=== PATIENT | female | born 1940 | race Caucasian/White ===

== ENCOUNTER 2016-05-14 09:41 | Emergency (ER) | payer OTHER ==
[~2016-05-14] VITALS: Ht 162.6 cm; Wt 54.5 kg
[~2016-05-14 09:41] MED LIST: POLY90PO MC; [UNRECOGNIZED DRUG - CODE] IM
[2016-05-14] MEDS ORDERED: ONDANSETRON 4 MG INJ IV STA (09:43)
[2016-05-14] MEDS ORDERED: morphine 4 MG/ML VIAL IV STA (09:43)
[2016-05-14] MEDS ORDERED: SOD CHLORIDE 0.9% 1,000 ML IV STA (09:43)
[2016-05-14 10:01] VITALS: Ht 162.6 cm; Wt 54.5 kg
[2016-05-14] MEDS ORDERED: AMLO5TAB4 PO (10:20)
[2016-05-14] MEDS ORDERED: CARV3.1260 PO (10:25)
[2016-05-14 10:32] LABS: ADD SCAN DIFF NO
--- NOTE | 2016-05-14 10:33 | RADRPT ---
PROCEDURE: CT Abdomen and Pelvis without contrast. CLINICAL INDICATION: Abdominal pain, history of cervical cancer TECHNIQUE: CT of the abdomen and pelvis was performed on a multi-detector scanner without IV contr ast. Coronal and sagittal images were reformatted from the axial data set. One or more of the foll owing dose reduction techniques were used: automated exposure control, adjustment of the mA and/or kV according to patient size, use of iterative reconstruction technique. CTDI = 15.11 mGy. DLP = 70 8.01 mGy-cm. COMPARISON: PET CT, 02/15/2012 FINDINGS: CT abdomen: Bibasilar atelectasis / scarring is noted. The heart size is normal, without pericardial effusion. Liver, gallbladder, biliary tree, pancreas, spleen and adrenal glands are unremarkable. Bilateral ureteral stents are in place. There is mild to moderate right hydroureteronephrosis. Nonobstructiv e right renal calculus is noted. There is chronic moderate to severe left renal atrophy. No signif icant hydronephrosis is seen on the left. The stomach is partially collapsed, but appears grossly u nremarkable. The aorta is of normal caliber. Aortic vascular calcifications are present. There is no retroperit young lymphadenopathy. The yennifer hepatis region is clear. CT pelvis: No bowel obstruction, free intraperitoneal air or abscess is identified. The patient is status post appendectomy and partial small bowel resection, with unremarkable appearance of the surgical staple lines. No diverticulosis, diverticulitis or colitis is identified. The patient is status post hys terectomy. Urinary bladder is grossly unremarkable. No pelvic mass, free fluid or lymphadenopathy is identified. The surrounding osseous structures are remarkable for diffuse degenerative spondylosis of the spine. No osteolytic or osteoblastic lesion is detected. IMPRESSION: 1. History of cervical cancer, status post hysterectomy. No gross evidence of recurrent neoplasm o r metastatic disease is seen in the abdomen and pelvis. 2. Bilateral ureteral stents are in place. 3. There is mild to moderate right hydroureteronephrosis. Nonobstructive right renal calculus is i dentified. 4. There is chronic moderate to severe left renal atrophy. No significant hydronephrosis is seen o n the left. 5. Aortoiliac atherosclerotic calcifications are present. 6. The patient is also status post appendectomy and partial small bowel resection. No bowel obstru ction is identified. RPTAT: EE .Efrain Khoury MD, MD Date Time Electronically viewed and signed by .Efrain Khoury MD, MD on 05/14/2016 10:33 .R/
[2016-05-14 10:46] LABS: ABNORMAL IP MESSAGE 1; BASOPHILS % 0.6 % (0.0-2.0); EOSINOPHILS # 0.1 10^3/ul (0.0-0.5); EOSINOPHILS % 1.7 % (0.0-7.0); HEMATOCRIT 37.2 % (37.0-47.0); HEMOGLOBIN 12.8 g/dl (12.0-16.0); LYMPHOCYTES # 0.5 10^3/ul (0.8-2.9); LYMPHOCYTES % 8.4 % (15.0-51.0); MEAN CORPUSCULAR HEMOGLOBIN 30.5 pg (29.0-33.0); MEAN CORPUSCULAR HGB CONC 34.4 g/dl (32.0-37.0); MEAN CORPUSCULAR VOLUME 88.6 fl (82.0-101.0); MEAN PLATELET VOLUME 9.8 fl (7.4-10.4); MONOCYTE # 0.4 10^3/ul (0.3-0.9); NEUTROPHIL # 5.2 10^3/ul (1.6-7.5); PLATELET COUNT 243 10^3/UL (140-415); RED CELL DISTRIBUTION WIDTH 13.6 % (11.5-14.5); WHITE BLOOD COUNT 6.3 10^3/ul (4.8-10.8)
[2016-05-14 10:47] LABS: ALBUMIN 4.5 g/dl (3.3-4.9)
[2016-05-14 10:48] LABS: POTASSIUM 3.3 mmol/L (3.5-5.1)
[2016-05-14 10:50] LABS: ALBUMIN/GLOBULIN RATIO 1.6; BILIRUBIN,INDIRECT 0.7 mg/dl (0-1.1); BILIRUBIN,TOTAL 0.7 mg/dl (0.2-1.3); CREATININE 0.78 mg/dl (0.44-1.00); TOTAL PROTEIN 7.3 g/dl (6.1-8.1)
[2016-05-14 10:51] LABS: CALCIUM 9.6 mg/dl (8.4-10.2)
[2016-05-14 11:41] LABS: URINE BLOOD (Dip) POC 3+ (NEGATIVE)
[2016-05-14] MEDS ORDERED: ONDA4TAB14 PO (11:50)
[2016-05-14 12:00] VITALS: BP 140/73; PULSE 69; RESP 16; TEMP 97.5
[2016-05-14 12:19] LABS: ADD UMIC YES; URINE BILIRUBIN (Dip) NEGATIVE (NEGATIVE); URINE BLOOD (Dip) 3+ (NEGATIVE); URINE COLOR LT. YELLOW (YELLOW); URINE GLUCOSE (Dip) NEGATIVE (NEGATIVE); URINE KETONES (Dip) TRACE (NEGATIVE); URINE LEUKOCYTE ESTERASE (Dip) NEGATIVE (NEGATIVE); URINE NITRITE (Dip) NEGATIVE (NEGATIVE); URINE TOTAL PROTEIN (Dip) NEGATIVE (NEGATIVE); URINE UROBILINOGEN (Dip) 0.2 E.U./dL (0.1-1.0)
[2016-05-14 12:49] LABS: URINE RBCS >200 /HPF (0)
[2016-05-14 12:50] LABS: BACTERIA,URINE MODERATE
--- NOTE | 2016-05-14 13:37 | ERD ---
ER Documentation Chief Complaint Date/Time DATE: 05/14/16 TIME: 13:30 Chief Complaint N/V with right groin pain HPI She is a 75-year-old female with cervical cancer previously and hypertension who presents with abdominal pain. She has right lower quadrant abdominal pain and vomiting. She was brought in by ambulance. Her symptoms started this morning. She does have kidney stones bilaterally and has them changed every 6 months. She has an appointment on Wednesday to change her stents. She has a history of cancer with radiation which is in remission. She has no fevers. She has had no treatment as of yet. She called her primary doctor but there was no answer. ROS All systems reviewed and are negative except as per history of present illness. Medications Home Meds Active Scripts Ondansetron (Ondansetron Odt) 4 Mg Tab.rapdis, 4 MG PO Q6H Y for NAUSEA AND/OR VOMITING, #30 TAB Prov:OJSR CABELLO MD 05/14/16 Reported Medications Carvedilol* (Carvedilol*) 3.125 Mg Tablet, 3.125 MG PO BID, #60 TAB 05/14/16 Amlodipine Besylate* (Norvasc*) 5 Mg Tablet, 5 MG PO BID, TAB 05/14/16 Discontinued Reported Medications Dicyclomine Hcl (Dicyclomine Hcl) 10 Mg/Ml Vial, 10 MG IM AC MEALS AND BEDTIME 02/17/12 Polyethylene Glycol (Polyethylene Glycol) 2,270 Gm Powder, [id number] GM MC DAILY 02/17/12 Allergies Allergies: Coded Allergies: Latex (Verified Allergy, Intermediate, RASH, 02/17/12) PMhx/Soc History of Surgery: Yes (HYSTERECTOMY) Anesthesia Reaction: No Hx Neurological Disorder: No Hx Respiratory Disorders: No Hx Cardiac Disorders: No Hx Psychiatric Problems: No Hx Miscellaneous Medical Probl: Yes (cervical ca) Hx Alcohol Use: No Hx Substance Use: No Hx Tobacco Use: Yes (10 YRS. AGO) Smoking Status: Former smoker FmHx Family History: No diabetes Physical Exam Vitals Vital Signs Date Time Temp Pulse Resp B/P Pulse Ox O2 Delivery O2 Flow Rate FiO2 05/14/16 12:00 97.5 69 16 140/73 97 Room Air 05/14/16 10:01 97.5 77 16 181/87 96 Physical Exam Const: Mild distress secondary to pain Head: Atraumatic Eyes: Normal Conjunctiva ENT: Normal External Ears, Nose and Mouth. Neck: Full range of motion..~ No meningismus. Resp: Clear to auscultation bilaterally Cardio: Regular rate and rhythm, no murmurs Abd: Soft, right lower quadrant pain to palpation without rebound or guarding Skin: No petechiae or rashes Back: No midline or flank tenderness Ext: No cyanosis, or edema Neur: Awake and alert Psych: Normal Mood and Affect Result Diagram: 05/14/16 1020 05/14/16 1020 Results 24 hrs Laboratory Tests Test 05/14/16 10:20 05/14/16 11:40 05/14/16 11:43 Alanine Aminotransferase (ALT/SGPT) 37IU/L Albumin 4.5g/dl Albumin/Globulin Ratio 1.60 Alkaline Phosphatase 82IU/L Anion Gap 19 Aspartate Amino Transf (AST/SGOT) 30IU/L Basophils # 0.010^3/ul Basophils % 0.6% Blood Urea Nitrogen 17mg/dl Calcium Level 9.6mg/dl Carbon Dioxide Level 25mmol/L Chloride Level 102mmol/L Creatinine 0.78mg/dl Direct Bilirubin 0.00mg/dl Eosinophils # 0.110^3/ul Eosinophils % 1.7% Globulin 2.80g/dl Glucose Level 145mg/dl Hematocrit 37.2% Hemoglobin 12.8g/dl Indirect Bilirubin 0.7mg/dl Lipase 242U/L Lymphocytes # 0.510^3/ul Lymphocytes % 8.4% Mean Corpuscular Hemoglobin 30.5pg Mean Corpuscular Hemoglobin Concent 34.4g/dl Mean Corpuscular Volume 88.6fl Mean Platelet Volume 9.8fl Monocytes # 0.410^3/ul Monocytes % 7.0% Neutrophils # 5.210^3/ul Neutrophils % 82.0% Nucleated Red Blood Cells # 0.010^3/ul Nucleated Red Blood Cells % 0.0/100WBC Platelet Count 78145^3/UL Potassium Level 3.3mmol/L Red Blood Count 4.2010^6/ul Red Cell Distribution Width 13.6% Sodium Level 143mmol/L Total Bilirubin 0.7mg/dl Total Protein 7.3g/dl White Blood Count 6.310^3/ul Urine Bacteria MODERATE Urine Bilirubin NEGATIVE Urine Calcium Oxalate Crystals OCCASIONAL Urine Clarity SLIGHTLY CLOUDY Urine Coarse Granular Casts OCCASIONAL Urine Color LT. YELLOW Urine Epithelial Cells RARE Urine Glucose NEGATIVE% Urine Hemoglobin 3+ Urine Ketones TRACE Urine Leukocyte Esterase NEGATIVE Urine Microscopic RBC >200/HPF Urine Microscopic WBC 5-10/HPF Urine Nitrite NEGATIVE Urine Specific Max 1.010 Urine Total Protein NEGATIVE Urine Urobilinogen 0.2 E.U./dL Urine pH 7.0 Bedside Urine Blood 3+ Bedside Urine Glucose (UA) Negative Bedside Urine Ketones (LAB) Trace Bedside Urine Leukocyte Esterase (L Negative Bedside Urine Nitrite (LAB) Negative Bedside Urine Protein (LAB) Trace Bedside Urine pH (LAB) 8.5 Current Medications Medications (Trade) Dose Ordered Sig/Everardo Route PRN Reason Start Time Stop Time Status Last Admin Dose Admin Sodium Chloride (NS) 1,000 ml @ 1,000 mls/hr Q1H STAT IV 05/14/16 09:43 05/14/16 10:42 DC 05/14/16 10:38 Morphine Sulfate (morphine) 4 mg ONCE STAT IV 05/14/16 09:43 05/14/16 09:44 DC 05/14/16 10:37 Ondansetron HCl (Zofran Inj) 4 mg ONCE STAT IV 05/14/16 09:43 05/14/16 09:44 DC 05/14/16 10:37 Procedures/MDM CT scan shows mild hydronephrosis per radiology but no obvious kidney stone or surgical process. Patient is a 75-year-old female presents with right-sided hydronephrosis. There is no sign of infection in the urine. Laboratory studies are basically normal other than mild hypokalemia. The patient should follow-up with her urologist for changing of her stents. I did reach out to Dr. Salomon who is the urologist on-call but he is in the operating room and was unable to return the call. There is a consideration for possible cervical cancer recurrence that is causing obstruction of the ureter but she does have a urologist that she could follow-up with and I do not think she is to be admitted at this time. She can return for any worsening symptoms. Departure Diagnosis: Primary Impression: Abdominal pain Abdominal location: right lower quadrant Qualified Code: R10.31 - Right lower quadrant abdominal pain Additional Impressions: Hydronephrosis Hydronephrosis type: unspecified Qualified Code: N13.30 - Hydronephrosis, unspecified hydronephrosis type Nausea and vomiting Vomiting type: unspecified Vomiting Intractability: non-intractable Qualified Code: R11.2 - Non-intractable vomiting with nausea, unspecified vomiting type Condition: Fair Patient Instructions: Abdominal Pain, Hydronephrosis Adult Referrals: Dr. Us your Urologist Additional Instructions: SPECIALIST: YOU HAVE A MEDICAL CONDITION WHICH REQUIRES YOU TO SEE A SPECIALIST WITHIN THE NEXT 1-2 DAYS. PLEASE FOLLOW UP WITH YOUR PRIMARY PHYSICIAN FOR REFFERAL.IF YOU DO NOT HAVE A PRIMARY CARE PHYSICIAN AND/OR YOU CAN NOT AFFORD TO SEE A PHYSICIAN THE FOLLOWING RESOURCES HAVE BEEN SUPPLIED TO YOU. IT IS YOUR RESPONSIBILITY TO BE SEEN BY THE SPECIALIST JOSR CABELLO MD May 14, 2016 13:36
== END 2016-05-14 12:00 | disposition home or self-care (01) ==
LOC: E/R 09:41
DX: R10.31 Right lower quadrant pain (principal); R11.2 Nausea with vomiting, unspecified; N13.30 Unspecified hydronephrosis; I10 Essential (primary) hypertension; R40.2142 Coma scale, eyes open, spontaneous, at arrival to emergency department; R40.2252 Coma scale, best verbal response, oriented, at arrival to emergency department; R40.2362 Coma scale, best motor response, obeys commands, at arrival to emergency department; Z87.891 Personal history of nicotine dependence; Z85.41 Personal history of malignant neoplasm of cervix uteri
CPT/HCPCS: 36415; 74176; 80053; 81001; 83690; 85025; 96374; 96375; 99285; J2270; J2405; J7030; 81003

== ENCOUNTER 2017-02-06 15:08 | Inpatient (IN) | payer OTHER ==
[~2017-02-06] VITALS: Ht 162.6 cm; Wt 50.5 kg
[~2017-02-06 15:08] MED LIST changes: +AMLO5TAB4 PO; +CARV3.1260 PO; +ONDA4TAB14 PO; -POLY90PO MC; -[UNRECOGNIZED DRUG - CODE] IM
[2017-02-06 16:08] LABS: BASOPHIL # 0.1 10^3/ul (0.0-0.1); BASOPHILS % 0.7 % (0.0-2.0); EOSINOPHILS # 0.1 10^3/ul (0.0-0.5); EOSINOPHILS % 1.7 % (0.0-7.0); HEMATOCRIT 43.9 % (37.0-47.0); HEMOGLOBIN 14.7 g/dl (12.0-16.0); LYMPHOCYTES % 14.6 % (15.0-51.0); MEAN CORPUSCULAR HEMOGLOBIN 30.1 pg (29.0-33.0); MEAN CORPUSCULAR HGB CONC 33.5 g/dl (32.0-37.0); MEAN CORPUSCULAR VOLUME 89.8 fl (82.0-101.0); MEAN PLATELET VOLUME 9.3 fl (7.4-10.4); MONOCYTE # 0.5 10^3/ul (0.3-0.9); MONOCYTES % 7.4 % (0.0-11.0); NEUTROPHIL # 5.2 10^3/ul (1.6-7.5); NEUTROPHILS % 75.3 % (39.0-77.0); PLATELET COUNT 330 10^3/UL (140-415); RED BLOOD COUNT 4.89 10^6/ul (4.20-5.40); RED CELL DISTRIBUTION WIDTH 13.5 % (11.5-14.5); WHITE BLOOD COUNT 6.9 10^3/ul (4.8-10.8)
[2017-02-06 16:22] LABS: ALBUMIN 4.3 g/dl (3.3-4.9); ALBUMIN/GLOBULIN RATIO 1.3; BILIRUBIN,INDIRECT 0.5 mg/dl (0-1.1); BILIRUBIN,TOTAL 0.5 mg/dl (0.2-1.3); CALCIUM 10.2 mg/dl (8.4-10.2); CREATININE 0.76 mg/dl (0.44-1.00); TOTAL PROTEIN 7.6 g/dl (6.1-8.1)
[2017-02-06 18:39] VITALS: TEMP 98.1
--- NOTE | 2017-02-06 18:56 | ERD ---
ER Documentation Chief Complaint Chief Complaint CHRONIC BACK PAIN RADIATES TO LEGS IMPAIRING ADL'S HPI 76-year-old female comes to the emergency department by ambulance complaining of generalized lower extremity weakness. Patient was just recently hospitalized at [facility] for evaluation of significant back and neck pain and lower extremity weakness. Patient had MRI studies of her cervical and thoracic spine as well as her brain which demonstrated degenerative disease. She was discharged home and since being discharged, she states her legs are so weak that she cannot stand up and has been falling. The daughter tells me that she has been unable to take care of herself. Patient reports no other focal weakness, bowel or bladder incontinence. She reports no fevers or chills. She continues to have generalized weakness and the ambulance brought her to the emergency department. I have reviewed the stone carriage operator pre-hospital care. Pre-hospital vital signs were reviewed. Pre-hospital diagnostic tests were reviewed. On arrival, patient is complaining of the generalized weakness. The daughter tells me that she has been unable to care for herself. Patient has no other acute medical complaints. ROS All systems reviewed and are negative except as per history of present illness. Medications Home Meds Active Scripts Ondansetron (Ondansetron Odt) 4 Mg Tab.rapdis, 4 MG PO Q6H Y for NAUSEA AND/OR VOMITING, #30 TAB Prov:JOSR CABELLO MD 05/14/16 Reported Medications Carvedilol* (Carvedilol*) 3.125 Mg Tablet, 3.125 MG PO BID, #60 TAB 05/14/16 Amlodipine Besylate* (Norvasc*) 5 Mg Tablet, 5 MG PO BID, TAB 05/14/16 Allergies Allergies: Coded Allergies: Latex (Verified Allergy, Intermediate, RASH, 02/17/12) PMhx/Soc History of Surgery: Yes (HYSTERECTOMY) Anesthesia Reaction: No Hx Neurological Disorder: No Hx Respiratory Disorders: No Hx Cardiac Disorders: No Hx Psychiatric Problems: No Hx Miscellaneous Medical Probl: Yes (cervical ca) Hx Alcohol Use: No Hx Substance Use: No Hx Tobacco Use: Yes (10 YRS. AGO) Smoking Status: Former smoker FmHx Noncontributory for chief complaint Physical Exam Vitals Vital Signs Date Time Temp Pulse Resp B/P Pulse Ox O2 Delivery O2 Flow Rate FiO2 02/06/17 18:39 98.1 73 20 167/87 98 Room Air 02/06/17 15:15 98.7 76 18 178/103 98 Physical Exam GENERAL: Patient is frail, elderly-appearing HEENT: Pupils equal, round, and reactive to light. EOMI. There is no scleral icterus. NECK: C-spine is soft and supple, there is no meningismus. There is no cervical lymphadenopathy. LUNGS: Clear to auscultation bilaterally. There are no rales, wheezes or rhonchi. HEART: Regular rate and rhythm, no murmurs, clicks, rubs or gallops. ABDOMEN: Soft, non-tender, non-distended. There are bowel sounds in all four quadrants. No rebound or guarding. EXTREMITIES: There is no peripheral cyanosis or edema. No focal swelling or erythema. NEURO: The patient moves all four extremities with 5/5 strength. Cranial nerves II - XII are intact. Normal gait. Alert and oriented. Sensory deficits. Gait was not assessed. SKIN: There is no apparent rash or petechiae. Bruising is noted in both lower extremities HEME/LYMPHATIC: There is no evidence of excessive bruising or lymphedema. PSYCHIATRIC: The patient does not appear anxious or depressed. Result Diagram: 02/06/17 1550 02/06/17 1550 Results 24 hrs Laboratory Tests Test 02/06/17 15:50 White Blood Count 6.910^3/ul Red Blood Count 4.8910^6/ul Hemoglobin 14.7g/dl Hematocrit 43.9% Mean Corpuscular Volume 89.8fl Mean Corpuscular Hemoglobin 30.1pg Mean Corpuscular Hemoglobin Concent 33.5g/dl Red Cell Distribution Width 13.5% Platelet Count 72174^3/UL Mean Platelet Volume 9.3fl Neutrophils % 75.3% Lymphocytes % 14.6% Monocytes % 7.4% Eosinophils % 1.7% Basophils % 0.7% Nucleated Red Blood Cells % 0.0/100WBC Neutrophils # 5.210^3/ul Lymphocytes # 1.010^3/ul Monocytes # 0.510^3/ul Eosinophils # 0.110^3/ul Basophils # 0.110^3/ul Nucleated Red Blood Cells # 0.010^3/ul Sodium Level 144mmol/L Potassium Level 4.0mmol/L Chloride Level 104mmol/L Carbon Dioxide Level 30mmol/L Anion Gap 14 Blood Urea Nitrogen 10mg/dl Creatinine 0.76mg/dl Glucose Level 99mg/dl Calcium Level 10.2mg/dl Total Bilirubin 0.5mg/dl Direct Bilirubin 0.00mg/dl Indirect Bilirubin 0.5mg/dl Aspartate Amino Transf (AST/SGOT) 32IU/L Alanine Aminotransferase (ALT/SGPT) 43IU/L Alkaline Phosphatase 119IU/L Total Protein 7.6g/dl Albumin 4.3g/dl Globulin 3.30g/dl Albumin/Globulin Ratio 1.30 Procedures/MDM Patient was taken to a room, seen and evaluated. Comfort measures were initiated. Diagnostic tests were ordered and reviewed. RADIOLOGY: MRIs were reviewed from [place] CONSULTATION: Dr. Simons was notified for admission. Dr. Connors was notified for neurosurger. REEVALUATION: Patient is remained comfortable and stable and neurologically unchanged MEDICAL DECISION MAKIN-year-old female presents to the emergency department with lower extremity weakness resulting in inability to care for herself and an inability to care for ADLs. Patient at this time has no findings on examination to make me concerned about acute paralysis and her MRIs were not imminently surgical. However, she is pending neurosurgical consultation with Dr. Connors. My big concern with this patient is her social situation as she lives by herself, has been having multiple falls, and as per my conversations with the daughter is clearly not able to care for herself at home. Patient will be admitted to the hospital for further observation, consideration of placement, consideration of neurosurgical consultation and further treatment. Departure Diagnosis: Primary Impression: Radiculopathy BERNICE NEWBERRY Feb 06, 2017 18:56
[2017-02-06] MEDS ORDERED: ENOXAPARIN 40 MG/0.4 ML SYG SC SCH (19:00)
[2017-02-06] MEDS ORDERED: ONDANSETRON (ODT) 4 MG TAB ODT PRN (19:00)
[2017-02-06] MEDS ORDERED: NACL 0.9% 3 ML SYG IV SCH (19:00)
[2017-02-06] MEDS ORDERED: ZOLPIDEM 5 MG TAB PO PRN (19:00)
[2017-02-06 20:17] LABS: ADD UMIC YES; UR ASCORBIC ACID 20 mg/dL (NEGATIVE); UR BILIRUBIN (Dip) NEGATIVE (NEGATIVE); UR BLOOD (Dip) 3+ mg/dL (NEGATIVE); UR CLARITY SLIGHTLY CLOUDY (CLEAR); UR COLOR YELLOW (YELLOW); UR GLUCOSE (Dip) NEGATIVE (NEGATIVE); UR KETONES (Dip) TRACE mg/dL (NEGATIVE); UR LEUKOCYTE ESTERASE (Dip) 1+ Leu/ul (NEGATIVE); UR MUCUS FEW /HPF (NONE SEEN); UR NITRITE (Dip) NEGATIVE (NEGATIVE); UR RBC > 182 /HPF (0-5); UR SPECIFIC GRAVITY (Dip) 1.008 (1.003-1.030); UR TOTAL PROTEIN (Dip) 1+ mg/dl (NEGATIVE); UR UROBILINOGEN (Dip) NEGATIVE (NEGATIVE)
[2017-02-06 20:30] VITALS: BP 166/87; RESP 20
[2017-02-06 20:36] VITALS: Ht 162.6 cm; Wt 50.5 kg
[2017-02-06] MEDS: AMLODIPINE 5 MG TAB PO SCH (21:44)
[2017-02-06] MEDS: FAMOTIDINE 20 MG TAB PO SCH (21:44)
[2017-02-06] MEDS: DOCUSATE SODIUM 100 MG CAP PO PRN (21:47)
[2017-02-07 05:13] LABS: BASOPHIL # 0.1 10^3/ul (0.0-0.1); EOSINOPHILS # 0.3 10^3/ul (0.0-0.5); EOSINOPHILS % 5.4 % (0.0-7.0); HEMATOCRIT 36.3 % (37.0-47.0); HEMOGLOBIN 12.2 g/dl (12.0-16.0); LYMPHOCYTES % 19.1 % (15.0-51.0); MEAN CORPUSCULAR HEMOGLOBIN 30.6 pg (29.0-33.0); MEAN CORPUSCULAR HGB CONC 33.6 g/dl (32.0-37.0); MONOCYTE # 0.5 10^3/ul (0.3-0.9); MONOCYTES % 10.7 % (0.0-11.0); NEUTROPHIL # 3.2 10^3/ul (1.6-7.5); NEUTROPHILS % 63.4 % (39.0-77.0); PLATELET COUNT 296 10^3/UL (140-415); RED BLOOD COUNT 3.99 10^6/ul (4.20-5.40); RED CELL DISTRIBUTION WIDTH 13.4 % (11.5-14.5)
[2017-02-07 05:34] LABS: INR 0.94; PARTIAL THROMBOPLASTIN TIME 26.9 Sec (25.0-35.0); PROTIME 12.6 Sec (12.2-14.2)
[2017-02-07 05:52] LABS: CALCIUM 9.3 mg/dl (8.4-10.2); CREATININE 0.94 mg/dl (0.44-1.00); POTASSIUM 3.3 mmol/L (3.5-5.1)
[2017-02-07 06:22] LABS: THYROID STIMULATING HORMONE 2.32 MIU/L (0.465-4.680)
[2017-02-07 07:52] VITALS: BP 162/73; RESP 19
[2017-02-07] MEDS: FAMOTIDINE 20 MG TAB PO SCH ×2 (08:08→21:24)
[2017-02-07] MEDS: AMLODIPINE 5 MG TAB PO SCH ×2 (08:09→21:24)
[2017-02-07] MEDS: ACETAMINOPHEN 325 MG TAB PO PRN (08:09)
--- NOTE | 2017-02-07 14:41 | HP ---
Date/Time of Note Date/Time of Note DATE: 02/07/17 TIME: 14:36 Assessment/Plan VTE Prophylaxis VTE Prophylaxis Intervention: SCD's Lines/Catheters IV [facility]ter [facility]from [facility] Saline Lock Urinary Cath still in place: No Assessment/Plan Assessment/Plan [facility] 1. 76yo woman with progressive weakness and lower extremity numbness extending up to the costal margin. Cervical spine MRI is pending. Cervical radiculopathy with both motor and sensory features, affecting bowel and bladder function. 2. Hypertension, treated with amlodipine 5mg PO BID. 3. Cardiovascular risk: By history she is free of angina, dyspnea, syncope, diabetes, chronic kidney disease, cerebrovascular or peripheral arterial disease , palpitations, or any history of heart disease (ischemic, valvular, or cardiomyopathic). She is highly independent and functional, apart from the progressive gait disturbance that appears directly related to her spinal disease. Her [place] Perioperative Cardiac Risk for major perioperative adverse event is estimated at 0.02% based on history and physical with one cardiac risk factor (hypertension). 4. History of cervical cancer diagnosed 7 years ago, treated with surgery, chemotherapy and radiation. She has residual bilateral hydronephrosis, treated with serial ureteric stent replacement (most recently 3 months ago). Normal renal function now. * Place under Med/Surg observation * MRI of the cervical spine, per Dr. Connors * Full-code * SCDs for DVT prevention * PO Famotidine for GI protection * Disposition: if she requires spinal surgery, we would anticipate rehabilitation placement for assistance with recovery. Marlon Simons MD PhD [phone] HPI/ROS Admit Date/Time Admit Date/Time Feb 06, 2017 at 18:52 Hx of Present Illness Ms. Nolasco is a 76-year-old patient of Dr. Nakul Paulino who presented last night in the ER with increased falling, numbness in her legs, and progressive weakness that interferes with her ability to walk. 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 Over the past two months she has had a sense of increasing weakness and numbness in the legs, beginning in the feet and progressing now all the way to the upper abdomen. She was initially able to get around with a walker, but now even that is very difficult for her. She also finds herself increasingly unable to sense when she needs to go to the bathroom, both for urination and defecation. She underwent total abdominal hysterectomy for cervical cancer in March 2009, but declined chemotherapy and radiation at the time. In February 2012 she suffered a small bowel obstruction, presumably secondary to cancer recurrence, and underwent chemotherapy and radiation at that time. She has chronic bilateral hydronephrosis with recurrent ureteric stent placement to maintain patency, most recently 11/08/16. 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 Mammography in May 2015 showed no suspicious lesions. In December 2015 she was hospitalized for left-sided nephrolithiasis. She had an ER visit here at [facility] in May 2016 for right lower quadrant pain, and was discharged home with a diagnosis of hydronephrosis. She has no known cardiac disease history, and has never seen a steel tester or undergone stress testing. Over the years she was a very enthusiastic walker, usually 3-miles per day with a friend, and had little difficulty climbing stairs before this fall. She stopped smoking 30 years ago. No family history of coronary disease. ROS No headache, chest pain, dyspnea, nausea, or change in bowel habitus. PMH/Family/Social Past Medical History Medical History: hypertension, other (Cervical cancer, treated with surgery and radiation. ) Past Surgical History Past Surgical Hx: other (Total abdominal hysterectomy (2009); ventral hernia repair (June 2013)) Social History Smoking Status: Former smoker Exam/Review of Systems Vital Signs Vitals Vital Signs Date Time Temp Pulse Resp B/P Pulse Ox O2 Delivery O2 Flow Rate FiO2 02/07/17 07:52 98.4 70 19 162/73 97 02/06/17 18:39 Room Air Intake and Output 02/06/17 02/06/17 02/07/17 14:59 22:59 06:59 Intake Total 720 ml Output Total 700 ml Balance 20 ml Exam Constitutional: alert, oriented, well developed Psych: nl mood/affect, no complaints Head: atraumatic, normocephalic Eyes: PERRL, nl conjunctiva, nl sclera ENMT: mucosa pink and moist Neck: non-tender, supple, No bruits, No jvd, No masses, No nuchal rigidity, No thyromegaly Respiratory: clear to auscultation, normal air movement, No congested cough, No crackles/rales, No diminished breath sounds, No intercostal retraction, No labored breathing, No respirations, No wheezing Cardiovascular: nl pulses, regular rate and rhythm, No bruits, No diastolic murmur, No edema, No gallop, No irregular rhythm, No jugular venous distention (JVD), No murmurs/extra sounds, No rub, No systolic murmur Gastrointestinal: bowel sounds, nl liver, spleen, non-tender, soft, surgical scars, No ascites, No distended, No firm, No hepatomegaly, No mass, No rebound or guarding, No splenomegaly, No tender Genitourinary - Female: No CVA tenderness Musculoskeletal: muscle tone, muscle weakness, nl extremities to inspection, No joint tenderness, No range of motion, No spine non-tender, No swelling Extremities: normal pulses, No calf tenderness, No clubbing, No cyanosis, No edema, No palpable cord, No pitting pedal edema, No tenderness Neurological: SHIPPING PACKER II-XII intact, nl mental status, nl speech, other ( Superficially good strength in ankle and wrist flexors and extensors. Hip flexors also 5-/5) Skin: other (Moderate bruising around the left knee) Lymph: nl lymph nodes Labs Result Diagram: 02/07/1745202/07/17453 Medications Medications Current Medications Amlodipine Besylate (Norvasc) 5 mg BID PO Last administered on 02/07/17 08:09 ; Admin Dose 5 MG; Start 02/06/17 at 21:00 Carvedilol (Coreg) 3.125 mg BID PO Last administered on 02/07/17 08:09; Admin Dose 3.125 MG; Start 02/06/17 at 21:00 Ondansetron HCl (Zofran Odt) 4 mg Q4H PRN ODT NAUSEA AND/OR VOMITING; Start at 19:00 Acetaminophen (Tylenol Tab) 650 mg Q6H PRN PO PAIN LEVEL 1-3 OR FEVER Last administered on 02/07/17 08:09; Admin Dose 650 MG; Start 02/06/17 at 19:00 Acetaminophen/ Hydrocodone Bitart (S[place] (5/325)) 1 tab Q6H PRN PO MODERATE PAIN LEVEL 4-6; Start 02/06/17 at 19:00 Docusate Sodium (Colace) 100 mg Q12H PRN PO CONSTIPATION Last administered on 02/06/17 21:47; Admin Dose 100 MG; Start 02/06/17 at 19:00 Zolpidem Tartrate (Ambien) 5 mg QHS PRN PO SLEEP Last administered on 22:38; Admin Dose 5 MG; Start 02/06/17 at 19:00 Famotidine (Pepcid) 20 mg Q12 PO Last administered on 02/07/17 08:08; Admin Dose 20 MG; Start 02/06/17 at 21:00 Influenza Virus Vaccine (Fluzone) 0.5 ml ONCE ONCE IM* ; Start 02/08/17 at 09: 00; Stop 02/08/17 at 09:01 LIZ SIMONS M.D. Feb 07, 2017 14:41
[2017-02-07] MEDS: HYDROCODONE/APAP (5/325) TAB PO PRN (15:12)
--- NOTE | 2017-02-07 15:17 | RADRPT ---
PROCEDURE: MRI cervical spine. CLINICAL INDICATION: Neck pain with weakness/numbness. TECHNIQUE: MRI of the cervical spine was performed on a 3T MR higher field scanner utilizing the following sequences: T1-weighted sagittal, T2-weighted sagittal and axial, T2-weighted sagittal wit h fat sat and axial GRE. COMPARISON: None available. FINDINGS: BONY STRUCTURES, BONY ALIGNMENT, BONE MARROW, SPINAL CORD: There is chronic decreased heights of the C4, C5, C6 and C7 vertebral bodies. No abnormal bone nabil ow signal intensity lesion. The craniocervical junction is normal. INDIVISUAL DISC SPACE LEVELS: Occiput//atlantoaxial articulation: Normal. C2-3: There is no posterior herniated dsic or bulging disc. The disk space is well-maintained. N o central canal stenosis or foraminal stenosis. The facet joints are normal. C3-4: There is 4 mm posterior central disk/osteophyte complex. There is degenerative discogenic di sease with mild anterior osteophytes. There is severe central canal stenosis due to 4 mm posterior central disk/osteophyte complex and thick ligament flava. The adjacent spinal cord is compressed. The AP diameter of the spinal canal measures 4.6 mm. There is moderate to severe narrowing of the ne ural foramina bilaterally due to hypertrophic uncovertebral joints. The facet joints are normal. C4-5: There is no posterior herniated dsic or bulging disc. There is degenerative discogenic disea se with mild anterior osteophytes. There is mild central canal stenosis. The AP diameter of the spin al canal measures 7.3 mm. There is mild to moderate narrowing of the neural foramina bilaterally due to hypertrophic uncovertebral joints. The facet joints are normal. C5-6: There is 3 mm posterior central disk/osteophyte complex. There is degenerative discogenic d isease with mild anterior osteophytes. There is severe central canal stenosis due to 3 mm posterior central disk/osteophyte complex and thick ligament flava. There is tiny myelomalacia of the adjace nt spinal cord. The AP diameter of the spinal canal measures 5 mm. There is severe narrowing of the right neural foramen and moderate narrowing of the left neural foramen due to hypertrophic uncovert ebral joints. The facet joints are normal. C6-7: There is no posterior herniated dsic or bulging disc. There is degenerative discogenic dise ase with mild anterior osteophytes. There is moderate central canal stenosis. The AP diameter of the spinal canal measures 5.4 mm. There is mild narrowing of the neural foramina bilaterally due to hy pertrophic uncovertebral joints. The facet joints are normal. C7-T1: There is 3 mm of spondylolisthesis. There is minimal bulging disc. There is degenerative discogenic disease with mild anterior osteophytes. There is severe central canal stenosis due to sp ondylolisthesis, minimal bulging disc and thick ligament flava. The AP diameter of the spinal canal measures 3.6 mm. There is mild narrowing of the neural foramina bilaterally due to hypertrophic unc overtebral joints. The facet joints are normal. IMPRESSION: 1. C5-6: 3 mm posterior central disk/osteophyte complex. Severe central canal stenosis due to 3 mm posterior central disk/osteophyte complex and thick ligament flava. Tiny myelomalacia of the adj acent spinal cord. Severe narrowing of the right neural foramen and moderate narrowing of the left neural foramen due to hypertrophic uncovertebral joints. 2. C3-4: 4 mm posterior central disk/osteophyte complex. Severe central canal stenosis due to 4 m m posterior central disk/osteophyte complex and thick ligament flava. The adjacent spinal cord is c ompressed. Moderate to severe narrowing of the neural foramina bilaterally due to hypertrophic unco vertebral joints. 3. C7-T1: 3 mm of spondylolisthesis. Renal bulging disc. Severe central canal stenosis due to s pondylolisthesis, minimal bulging disc and thick ligament flava. The AP diameter of the spinal canal measures 3.6 mm. Mild narrowing of the neural foramina bilaterally due to hypertrophic uncovertebr al joints. 4. C4-5: Mild central canal stenosis. Mild to moderate narrowing of the neural foramina bilaterall y due to hypertrophic uncovertebral joints. 5. C6-7: Moderate central canal stenosis. The AP diameter of the spinal canal measures 5.4 mm. M ild narrowing of the neural foramina bilaterally due to hypertrophic uncovertebral joints. 6. Multilevel mild degenerative spondylosis as described above.. RPTAT: GG .Merritt Pepper MD, MD Date Time Electronically viewed and signed by .Merritt Pepper MD, MD on 02/07/2017 15:17 .Y/
--- NOTE | 2017-02-07 15:17 | RADRPT ---
PROCEDURE: MRI thoracic spine without contrast CLINICAL INDICATION: Bilateral lower extremity weakness and numbness TECHNIQUE: An MRI of the thoracic spine was performed on a hi-definition 3.0 Margarita MRI scanner uti lizing the following sequences: Sagittal T1 weighted, sagittal and axial dual echo T2 weighted, and sagittal T2 fat saturation COMPARISON: No relevant priors FINDINGS: There is normal kyphosis of the thoracic spine. No evidence for acute fractures or traumatic subluxa tions are present. Preservation of vertebral body heights are noted. Moderate to severe disc space h eight loss and degenerative changes are present at the T8-9 through T11-12 levels. Diffuse disc brielle ccation is present throughout the thoracic spine. The visualized thoracic cord is of normal caliber and signal intensity. Normal termination is present at the L1 level. Cord deformity and subtle abnor mal cord signal is present at the C7-T1 levels with severe central canal stenosis at this level. The visualized posterior elements are intact and well aligned. The visualized paravertebral soft tissue s demonstrate a right paratracheal 1.8 cm nodule which may reflect a right thyroid lobe nodule, righ t parathyroid nodule or lymphadenopathy. Recommend additional imaging of the soft tissues of the nec k to further evaluate. The specific axial levels are as follows: C7-T1: A 5 mm osteophytic bar and bulge is present. AP canal dimension is 5 mm. This results in a s evere central canal stenosis, bilateral subarticular recess stenosis and severe bilateral neural for aminal stenosis. T1-2: Disc dessication and a small 3 mm central disc protrusion is present. AP canal dimension is 9 .3 mm. This results in a mild central canal stenosis without subarticular recess stenosis. Mild bila teral uncovertebral osteophytes and facet arthropathy contribute to mild bilateral neural foraminal stenosis at this level. T2-3: The intervertebral disc is desiccated. The central canal, subarticular recess and neural fora men are patent. T3-4: Disc desiccation is present. The central canal, subarticular recess and neural foramen are pa tent. T4-5: Disc desiccation is present. The central canal, subarticular recess and neural foramen are pa tent. T5-6: Disc desiccation is present. The central canal, subarticular recess and neural foramen are pa tent. T6-7: A 2 mm mild broad-based bulge is present. The central canal, subarticular recess and neural f oramen are patent. T7-8: Disc desiccation is present. The central canal, subarticular recess and neural foramen are pa tent. T8-9: Disc desiccation is present. A mild annular bulge is noted. This contributes to mild ventral impression on the thecal sac without significant central, subarticular recess or neural foraminal st enosis. T9-10: Disc desiccation is present with a mild 1 mm annular bulge. The central canal, subarticular recess are patent. Mild bilateral neural foraminal stenosis is present. T10-11: The intervertebral disc demonstrates mild disc desiccation. The central canal, subarticular recess and neural foramen are patent. T11-12: Disc desiccation is present with a mild 2 mm broad-based bulge. Mild bilateral facet arthro mani and ligamentum hypertrophy is present. AP canal dimension is 9.9 mm. This results in a mild ce ntral canal stenosis, bilateral subarticular recess stenosis and mild bilateral neural foraminal fay nosis. T12-L1: Disc desiccation is present with a mild annular bulge. Mild bilateral facet arthropathy and ligamentum hypertrophy is present. The central canal, bilateral subarticular recesses and neural fo ramen are patent. IMPRESSION: 1. No acute fractures or traumatic subluxations. 2. Normal thoracic cord 3. Severe central canal stenosis at the C7-T1 level secondary to broad-based disc osteophyte comple x and degenerative facet and uncovertebral osteoarthropathy. 4. Mild cord hyperintensity at the C7-C1 level secondary to above noted severe stenosis. Recommend cervical spine MRI with contrast to further evaluate. 5. Multilevel broad-based bulges at the T8-9, T9-10 , T11-12 and T12-L1 levels. 6. Mild bilateral neural foraminal stenosis at the T9-10 and T11-12 levels. RPTAT: HDC .Nilda Tim MD, Date Time Electronically viewed and signed by .Nilda Tim MD, MD on 02/07/2017 15:17 .C/
--- NOTE | 2017-02-07 15:29 | RADRPT ---
PROCEDURE: MRI lumbar spine CLINICAL INDICATION: Bilateral lower extremity weakness TECHNIQUE: An MRI of the lumbar spine was performed on a high resolution high definition, MRI scan ner utilizing the following sequences: Sagittal T1 weighted, sagittal and dual echo axial T2 weighte d, and sagittal T2 weighted with fat saturation. COMPARISON: No relevant priors although a CT abdomen pelvis from 05/14/2016 is available for correl ation. FINDINGS: There is straightening of the normal lumbar lordosis. Mild levoscoliosis is present with the apex of the curvature at L2-3. 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 Preservation of vertebral body heig hts are noted. Modic type 2 degenerative endplate changes are present at the L1-2 level and Modic ty pe 1 degenerative endplate changes at the L4-5 level. Disc dessication is noted diffusely from the T 12-L1 through to the L5-S1 levels. Severe disc space height loss is noted at the L1-2 level and L4-5 level and mild at L2-3 L3-4 and L5-S1 levels. Vacuum phenomenon is present at the L1-2 through L4-5 discs. The visualized conus terminates normally at the L1-2 level. The bilateral paravertebral soft tissues demonstrate a smaller atrophic appearing left kidney with multiple renal cortical cysts and signal void with in the left ureteropelvic junction which may reflect presence of a previously noted pigtail catheter or calculus. Recommend additional imaging of the renal collecting system. The specific axial levels are as follows: T12 - L1: Disc desiccation is present. Mild bilateral facet arthropathy and ligamentum flavum hyper trophy is present. Mild annular bulge is present. The central canal, subarticular recess and neural foramen are patent. L1 - L2: Disc desiccation with severe disc space height loss and degenerative endplate changes are noted. Mild 3 mm broad-based bulge is noted. AP canal dimension is 8.5 mm. Mild bilateral facet arth ropathy and ligamentum hypertrophy is present. This contributes to mild central canal stenosis, bila teral subarticular recess stenosis and moderate bilateral neural foraminal stenosis. L2 - L3: Mild disc space height loss disc dessication is present. A mild osteophytic bar and bulge measuring 3 mm is present. Mild bilateral facet arthropathy ligamentum hypertrophy and facet effusio ns are present. AP canal dimension is 8 mm. This results in a mild central canal stenosis, bilateral subarticular recess stenosis and moderate bilateral neural foraminal stenosis. L3 - L4: Disc desiccation is present with mild disc space height loss. A large 5 mm broad-based bul ge is present. AP canal dimension is 2 mm. Severe bilateral facet arthropathy, facet effusions and l igamentum flavum hypertrophy is present. The above findings result in a severe central canal stenosi s, bilateral subarticular recess stenosis and severe bilateral neural foraminal stenosis. L4 - L5: Disc desiccation is present with severe disc space height loss and a 4 mm moderate broad-b ased bulge and osteophyte. AP canal dimension is 4 mm. Severe bilateral facet arthropathy facet effu sions and ligamentum flavum hypertrophy is present. The above findings result in a severe central ca nal stenosis, bilateral subarticular recess stenosis and severe bilateral neural foraminal stenosis . L5 - S1: Disc desiccation is present with mild disc space height loss. Mild to moderate 3.5 mm broa d-based bulge is present. Moderate bilateral facet arthropathy and ligamentum hypertrophy is present . AP canal dimension is 6 mm. This results in a moderate central canal stenosis, bilateral subarticu lar recess stenosis and moderate bilateral neural foraminal stenosis. A central annular tear is also noted . IMPRESSION: 1. No acute fractures or traumatic subluxations. 2. Multilevel broad-based disc osteophyte complexes at the L1-2 through L5-S1 levels with severe ce ntral canal stenosis at L3-4 and L4-5, moderate stenosis at L5-S1 and mild at L1-2 and L2-3. 3. Severe degenerative endplate and disc changes at the L1-2 through L5-S1 levels as indicated above . 4. Multilevel neural foraminal stenosis at the L1-2 through L5-S1 levels with severe neural foramin al stenosis at L3-4 and L4-5. 5. Multilevel facet and ligamentum flavum osteoarthropathy as noted above. RPTAT: HDC .Nilda Tim MD, Date Time Electronically viewed and signed by .Nilda Tim MD, on 02/07/2017 15:28 .C/
[2017-02-07 15:41] VITALS: BP 143/69; PULSE 68; RESP 18
--- NOTE | 2017-02-07 20:04 | RADRPT ---
PROCEDURE: XR Chest. CLINICAL INDICATION: Shortness of breath. TECHNIQUE: Single frontal view. COMPARISON: None. FINDINGS: The lungs are clear. The heart size is normal. There is calcification in the aorta consistent with atherosclerosis. There is no pleural effusion. There is no pneumothorax. IMPRESSION: 1. Atherosclerosis. 2. Otherwise unremarkable chest radiograph. RPTAT: QQ .Bean Forrester MD, MD Date Time Electronically viewed and signed by .Bean Forrester MD, MD on 02/07/2017 20:04 .R/
[2017-02-07 20:59] VITALS: BP 133/70; RESP 18
[2017-02-07] MEDS ORDERED: PATIENT'S OWN MEDICATION PO SCH (21:00)
[2017-02-08 02:00] VITALS: BP 124/67; RESP 18
[2017-02-08] MEDS: ACETAMINOPHEN 325 MG TAB PO PRN ×3 (05:28→17:19)
[2017-02-08 07:55] VITALS: BP 152/73; RESP 20
[2017-02-08] MEDS ORDERED: DEXTROSE 5%-0.9% NACL 1,000 ML IV SCH (08:00)
[2017-02-08] MEDS: FAMOTIDINE 20 MG TAB PO SCH ×2 (08:51→20:09)
[2017-02-08] MEDS: AMLODIPINE 5 MG TAB PO SCH ×2 (08:52→20:09)
[2017-02-08] MEDS ORDERED: INFLUENZA VIRUS VACCINE 0.5 ML (DISPENSING) IM* ONE (09:00)
[2017-02-08 13:46] VITALS: BP 147/69; RESP 20
--- NOTE | 2017-02-08 13:56 | PN ---
Date/Time of Note Date/Time of Note DATE: 02/08/17 TIME: 13:42 Assessment/Plan VTE Prophylaxis VTE Prophylaxis Intervention: SCD's Lines/Catheters [facility] Peripheral IV Urinary Cath still in place: No Assessment/Plan Assessment/Plan 76 yo woman with: 1. Progressive weakness and lower extremity numbness extending up to her torso. Cervical spine MRI done and patient does have severe cervical stenosis, patient has been seen by Dr. Connors today, some of her symptoms are not consistent with cervical stenosis alone, patient seem to also have some lumbar stenosis symptoms , also, neurosurgery wants neurology evaluation for the patient. Request for neurology consult For now patient is on the schedule for OR on Wednesday 7:[address] Connors Cervical radiculopathy with both motor and sensory features 2. Hypertension: Continue amlodipine 5mg po BID. 3. History of cervical cancer diagnosed 7 years ago, treated with surgery, chemotherapy and radiation, also has residual bilateral hydronephrosis and has been getting serial ureteric stent replacement (most recently 3 months ago). Normal renal function currently. 4. Hypokalemia: Recheck labs today, replete potassium and also magnesium and phosphorus if needed 5. Cardiovascular risk: By history she is free of angina, dyspnea, syncope, diabetes, chronic kidney disease, cerebrovascular or peripheral arterial disease , palpitations, or any history of heart disease (ischemic, valvular, or cardiomyopathic). She is highly independent and functional, apart from the progressive gait disturbance that appears directly related to her spinal disease. Her Perioperative Cardiac Risk for major perioperative adverse event is estimated at low based on history and physical with one cardiac risk factor. Prophylaxis: SCDs for DVT prevention, Pepcid for GI prophylaxis Disposition: Neurology evaluation per neurosurgery request, for now tentatively schedule spinal surgery for Wednesday. Subjective 24 Hr Interval Summary Free Text/Dictation Patient doing okay this morning, she has been seen by Dr. Connors, for now her cervical spine surgery will be scheduled for Wednesday due to schedule availability, in the meantime also Dr. Connors wants the patient to be seen by neurology. Repeat labs are pending this morning to address hypokalemia seen yesterday. Exam/Review of Systems Vital Signs Vitals Vital Signs Date Time Temp Pulse Resp B/P Pulse Ox O2 Delivery O2 Flow Rate FiO2 02/08/17 07:55 97.7 68 20 152/73 96 02/07/17 15:41 Room Air Intake and Output 02/07/17 02/07/17 02/08/17 14:59 22:59 06:59 Intake Total 720 ml Output Total 700 ml Balance 20 ml Exam Constitutional: alert, oriented, well developed Cardiovascular: nl pulses, regular rate and rhythm Gastrointestinal: non-tender, soft Musculoskeletal: nl extremities to inspection Extremities: normal pulses, other (No edema, clubbing or cyanosis) Neurological: [employer] II-XII intact, nl mental status, nl speech, other (Lower extremity paresthesias and paresis right greater than left, right foot drop, upper extremity intact) Results Result Diagram: 02/07/17 0453 02/07/17 0454 Medications Medications Current Medications Amlodipine Besylate (Norvasc) 5 mg BID PO Last administered on 02/08/17 08:52 ; Admin Dose 5 MG; Start 02/06/17 at 21:00 Carvedilol (Coreg) 3.125 mg BID PO Last administered on 02/08/17 08:51; Admin Dose 3.125 MG; Start 02/06/17 at 21:00 Ondansetron HCl (Zofran Odt) 4 mg Q4H PRN ODT NAUSEA AND/OR VOMITING; Start at 19:00 Acetaminophen (Tylenol Tab) 650 mg Q6H PRN PO PAIN LEVEL 1-3 OR FEVER Last administered on 02/08/17 10:56; Admin Dose 650 MG; Start 02/06/17 at 19:00 Acetaminophen/ Hydrocodone Bitart ([place] (5/325)) 1 tab Q6H PRN PO MODERATE PAIN LEVEL 4-6 Last administered on 02/07/17 15:12; Admin Dose 1 TAB; Start 02/06/17 at 19:00 Docusate Sodium (Colace) 100 mg Q12H PRN PO CONSTIPATION Last administered on 02/06/17 21:47; Admin Dose 100 MG; Start 02/06/17 at 19:00 Famotidine (Pepcid) 20 mg Q12 PO Last administered on 02/08/17 08:51; Admin Dose 20 MG; Start 02/06/17 at 21:00 HALIMA CAMPBELL Feb 08, 2017 13:52
[2017-02-08 15:33] LABS: CALCIUM 9.3 mg/dl (8.4-10.2); CREATININE 0.95 mg/dl (0.44-1.00); POTASSIUM 3.4 mmol/L (3.5-5.1)
[2017-02-08 20:00] VITALS: BP 154/80; RESP 20
[2017-02-08] MEDS: DOCUSATE SODIUM 100 MG CAP PO PRN (20:14)
[2017-02-09 01:51] VITALS: BP 131/74; RESP 20
[2017-02-09] MEDS: ACETAMINOPHEN 325 MG TAB PO PRN ×4 (05:35→23:37)
[2017-02-09 06:27] LABS: BASOPHIL # 0.1 10^3/ul (0.0-0.1); BASOPHILS % 1.2 % (0.0-2.0); EOSINOPHILS # 0.2 10^3/ul (0.0-0.5); EOSINOPHILS % 5.5 % (0.0-7.0); HEMATOCRIT 37.9 % (37.0-47.0); HEMOGLOBIN 12.5 g/dl (12.0-16.0); LYMPHOCYTES # 0.9 10^3/ul (0.8-2.9); LYMPHOCYTES % 21.8 % (15.0-51.0); MEAN CORPUSCULAR HEMOGLOBIN 30.3 pg (29.0-33.0); MEAN CORPUSCULAR VOLUME 91.8 fl (82.0-101.0); MONOCYTE # 0.5 10^3/ul (0.3-0.9); MONOCYTES % 10.9 % (0.0-11.0); NEUTROPHIL # 2.5 10^3/ul (1.6-7.5); NEUTROPHILS % 60.1 % (39.0-77.0); PLATELET COUNT 287 10^3/UL (140-415); RED BLOOD COUNT 4.13 10^6/ul (4.20-5.40); RED CELL DISTRIBUTION WIDTH 13.5 % (11.5-14.5); WHITE BLOOD COUNT 4.2 10^3/ul (4.8-10.8)
[2017-02-09 07:15] LABS: MAGNESIUM 1.9 mg/dl (1.7-2.5)
[2017-02-09 07:19] LABS: CALCIUM 9.2 mg/dl (8.4-10.2); CREATININE 0.79 mg/dl (0.44-1.00); POTASSIUM 3.4 mmol/L (3.5-5.1)
[2017-02-09] MEDS: FAMOTIDINE 20 MG TAB PO SCH ×2 (08:53→21:27)
[2017-02-09] MEDS: AMLODIPINE 5 MG TAB PO SCH ×2 (08:54→21:30)
[2017-02-09 09:33] VITALS: BP 125/72; RESP 18
--- NOTE | 2017-02-09 12:15 | CONS ---
Date/Time of Note Date/Time of Note DATE: 02/09/17 TIME: 12:03 Assessment/Plan Assessment/Plan Chief Complaint/Hosp Course 76 yo female w hx of cervical disease planned for cervical fusion surgery, 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 Recommend MRI Thoracic post contrast imaging and bone scan to further evaluate for possible metastasis. Ordered imaging as stat to expedite work up prior to planned surgery. will d/w Dr. Palma Problems: Consultation Date/Type/Reason Admit Date/Time Feb 06, 2017 at 18:52 Date of Consultation: Feb 09, 2017 Type of Consultation: Neurology Reason for Consultation LE weakness, sensory level Referring Provider: GRANT PALMA MD Hx of Present Illness 76 year old history of cervical cancer with metastasis, ureteral stents admitted for cervical spine surgery severe cervical stenosis. For the past month she has been complaining of numbness in her feet that has ascended up to her abdomen below her breasts. She also c/o constipation over the past week, describes numbness also in the buttox and bilateral thigh region. She is unable to ambulate feels weak in her LE requiring assistance to the bathroom, no UE weakness. She was scheduled for the OR for cervical fusion surgery, neurology evaluate requested prior to evaluate for other causes of LE weakness and thoracic sensory level. Outside MRI T Spine w contrast 01/24 done at [place] commented on T2 signal hyperintensity at T5 region, advised to obtain bone scan to rule out metastatic disease. LE weakness numbness Past Medical History Medical History: hypertension, other (Cervical cancer, treated with surgery and radiation. ) Past Surgical History Past Surgical Hx: other (Total abdominal hysterectomy (2009); ventral hernia repair (June 2013)) Social History Smoking Status: Former smoker Exam/Review of Systems Vital Signs Vitals Vital Signs Date Time Temp Pulse Resp B/P Pulse Ox O2 Delivery O2 Flow Rate FiO2 02/09/17 09:33 97.6 71 18 125/72 95 02/07/17 15:41 Room Air Intake and Output 02/08/17 02/08/17 02/09/17 14:59 22:59 06:59 Intake Total 300 ml 720 ml Balance 300 ml 720 ml Exam awake alert oriented x3 no aphasia follows all commands CN: II-XII intact Motor: UE strength mild weakness 5-/5 Right elbow flexion and extension Left 5/5 LE 5/5 proximal muscle groups mild weakness dorsiflexion plantar flexion 5-/5 on RLE compared to Left inversion and eversion are intact Sensory decreased PP sensation at T5 level decreased to all modalities sensory checked anterior and posterior T5 level at both Reflexes 2+ UE, KJ 2+ AJ absent toes are downgoing Results Result Diagram: 02/09/17 0541 02/09/17 0541 Results 24 hrs Laboratory Tests Test 02/08/17 14:12 02/08/17 14:17 02/09/17 05:41 Sodium Level 144 144 Potassium Level 3.4 L 3.4 L Chloride Level 108 107 Carbon Dioxide Level 29 28 Anion Gap 10 12 Blood Urea Nitrogen 11 9 Creatinine 0.95 0.79 Glucose Level 105 94 Calcium Level 9.3 9.2 Phosphorus Level 3.4 4.0 Magnesium Level 1.8 1.9 White Blood Count 4.2 L Red Blood Count 4.13 L Hemoglobin 12.5 Hematocrit 37.9 Mean Corpuscular Volume 91.8 Mean Corpuscular Hemoglobin 30.3 Mean Corpuscular Hemoglobin Concent 33.0 Red Cell Distribution Width 13.5 Platelet Count 287 Mean Platelet Volume 9.0 Neutrophils % 60.1 Lymphocytes % 21.8 Monocytes % 10.9 Eosinophils % 5.5 Basophils % 1.2 Nucleated Red Blood Cells % 0.0 Neutrophils # 2.5 Lymphocytes # 0.9 Monocytes # 0.5 Eosinophils # 0.2 Basophils # 0.1 Nucleated Red Blood Cells # 0.0 Medications Medications Current Medications Amlodipine Besylate (Norvasc) 5 mg BID PO Last administered on 02/09/17 08:54 ; Admin Dose 5 MG; Start 02/06/17 at 21:00 Carvedilol (Coreg) 3.125 mg BID PO Last administered on 02/09/17 08:54; Admin Dose 3.125 MG; Start 02/06/17 at 21:00 Ondansetron HCl (Zofran Odt) 4 mg Q4H PRN ODT NAUSEA AND/OR VOMITING; Start at 19:00 Acetaminophen (Tylenol Tab) 650 mg Q6H PRN PO PAIN LEVEL 1-3 OR FEVER Last administered on 02/09/17 11:17; Admin Dose 650 MG; Start 02/06/17 at 19:00 Acetaminophen/ Hydrocodone Bitart ([place] (5/325)) 1 tab Q6H PRN PO MODERATE PAIN LEVEL 4-6 Last administered on 02/07/17 15:12; Admin Dose 1 TAB; Start 02/06/17 at 19:00 Docusate Sodium (Colace) 100 mg Q12H PRN PO CONSTIPATION Last administered on 02/08/17 20:14; Admin Dose 100 MG; Start 02/06/17 at 19:00 Famotidine (Pepcid) 20 mg Q12 PO Last administered on 02/09/17 08:53; Admin Dose 20 MG; Start 02/06/17 at 21:00 DONAL KAMARA MD Feb 09, 2017 12:15
[2017-02-09] MEDS ORDERED: POTASSIUM CHLORIDE (SR) 20 MEQ TAB PO STA (13:19)
--- NOTE | 2017-02-09 13:27 | PN ---
Date/Time of Note Date/Time of Note DATE: 02/09/17 TIME: 13:15 Assessment/Plan VTE Prophylaxis VTE Prophylaxis Intervention: SCD's Lines/Catheters IV [facility]from [facility] Saline Lock Urinary Cath still in place: No Assessment/Plan Assessment/Plan 76 yo woman with: 1. Progressive weakness and lower extremity numbness extending up to her torso. Appreciate neurology recommendations, for now surgical intervention to the cervical spine is delayed, MRI with contrast of the thoracic spine along with bone scan has been ordered by neurology to rule out metastatic disease. Patient with a history of cervical cancer and possibly previous pelvic metastasis. Continue monitoring neurological deficits 2. Hypertension: Continue Norvasc and carvedilol. 3. History of cervical cancer diagnosed 7 years ago, treated with surgery, chemotherapy and radiation, also has residual bilateral hydronephrosis and has been getting serial ureteric stent replacement (most recently 3 months ago). Normal renal function currently. 4. Hypokalemia: Replete K and mag today. 5. Cardiovascular risk: By history she is free of angina, dyspnea, syncope, diabetes, chronic kidney disease, cerebrovascular or peripheral arterial disease , palpitations, or any history of heart disease (ischemic, valvular, or cardiomyopathic). She is highly independent and functional, apart from the progressive gait disturbance that appears directly related to her spinal disease. Her Perioperative Cardiac Risk for major perioperative adverse event is estimated at low based on history and physical with one cardiac risk factor. Prophylaxis: SCDs for DVT prevention, Pepcid for GI prophylaxis Disposition: Appreciate neurology recommendations and for now, cervical spine surgery on hold until additional imaging ordered today is obtained. Subjective 24 Hr Interval Summary Free Text/Dictation Patient remained stable, awaiting additional imaging per neurology and further decision regarding surgical intervention will be made at that point. For now cervical spine surgical procedure on hold. Exam/Review of Systems Vital Signs Vitals Vital Signs Date Time Temp Pulse Resp B/P Pulse Ox O2 Delivery O2 Flow Rate FiO2 02/09/17 09:33 97.6 71 18 125/72 95 02/07/17 15:41 Room Air Intake and Output 02/08/17 02/08/17 02/09/17 15:00 23:00 07:00 Intake Total 300 ml 720 ml Balance 300 ml 720 ml Exam Constitutional: alert, oriented, well developed Respiratory: clear to auscultation, normal air movement Cardiovascular: nl pulses, regular rate and rhythm Gastrointestinal: non-tender, soft Musculoskeletal: nl extremities to inspection, nl gait and stance Extremities: normal pulses, other (No edema, clubbing or cyanosis) Neurological: PROFESSOR OF GENETICS II-XII intact, nl mental status, nl speech, other (Lower extremity paresthesias and paresis right greater than left, right foot drop, upper extremity intact) Results Result Diagram: 02/09/17 0541 02/09/17 0541 Results 24 hrs Laboratory Tests Test 02/08/17 14:12 02/08/17 14:17 02/09/17 05:41 Sodium Level 144 144 Potassium Level 3.4 L 3.4 L Chloride Level 108 107 Carbon Dioxide Level 29 28 Anion Gap 10 12 Blood Urea Nitrogen 11 9 Creatinine 0.95 0.79 Glucose Level 105 94 Calcium Level 9.3 9.2 Phosphorus Level 3.4 4.0 Magnesium Level 1.8 1.9 White Blood Count 4.2 L Red Blood Count 4.13 L Hemoglobin 12.5 Hematocrit 37.9 Mean Corpuscular Volume 91.8 Mean Corpuscular Hemoglobin 30.3 Mean Corpuscular Hemoglobin Concent 33.0 Red Cell Distribution Width 13.5 Platelet Count 287 Mean Platelet Volume 9.0 Neutrophils % 60.1 Lymphocytes % 21.8 Monocytes % 10.9 Eosinophils % 5.5 Basophils % 1.2 Nucleated Red Blood Cells % 0.0 Neutrophils # 2.5 Lymphocytes # 0.9 Monocytes # 0.5 Eosinophils # 0.2 Basophils # 0.1 Nucleated Red Blood Cells # 0.0 Medications Medications Current Medications Amlodipine Besylate (Norvasc) 5 mg BID PO Last administered on 02/09/17 08:54 ; Admin Dose 5 MG; Start 02/06/17 at 21:00 Carvedilol (Coreg) 3.125 mg BID PO Last administered on 02/09/17 08:54; Admin Dose 3.125 MG; Start 02/06/17 at 21:00 Ondansetron HCl (Zofran Odt) 4 mg Q4H PRN ODT NAUSEA AND/OR VOMITING; Start at 19:00 Acetaminophen (Tylenol Tab) 650 mg Q6H PRN PO PAIN LEVEL 1-3 OR FEVER Last administered on 02/09/17 11:17; Admin Dose 650 MG; Start 02/06/17 at 19:00 Acetaminophen/ Hydrocodone Bitart ([place] (5/325)) 1 tab Q6H PRN PO MODERATE PAIN LEVEL 4-6 Last administered on 02/07/17 15:12; Admin Dose 1 TAB; Start 02/06/17 at 19:00 Docusate Sodium (Colace) 100 mg Q12H PRN PO CONSTIPATION Last administered on 02/08/17 20:14; Admin Dose 100 MG; Start 02/06/17 at 19:00 Famotidine (Pepcid) 20 mg Q12 PO Last administered on 02/09/17 08:53; Admin Dose 20 MG; Start 02/06/17 at 21:00 HALIMA CAMPBELL Feb 09, 2017 13:26
[2017-02-09] MEDS ORDERED: MAGNESIUM SULFATE 1 GM/D5W 100 ML IVPB ONE (13:30)
[2017-02-09 14:17] VITALS: BP 139/69; RESP 18
[2017-02-09] MEDS ORDERED: BISACODYL 10 MG SUPP PR PRN (14:30)
--- NOTE | 2017-02-09 17:50 | RADRPT ---
PROCEDURE: Whole body bone scan study CLINICAL INDICATION: 76 -year-old patient with ovarian cancer, for evaluation for skeletal metasta ses. TECHNIQUE: Following the intravenous injection of 24.2 mCi of Tc-99m MDP, whole body anterior and posterior planar images were obtained along with spot views of the head, neck, chest, abdomen and pe lvis. COMPARISON: CT scan of the abdomen and pelvis dated May 14, 2016, MRI of the cervical thoraci c and lumbar spine dated February 07, 2017. The patient does not have any additional prior relevant imaging studies. FINDINGS: Numerous foci of increased activity are seen in the left anterior approximately 5th and possibly six th ribs, which likely related to trauma. Small focus of increased activity seen in the lateral aspect of the right shoulder. Numerous areas of increased activity are seen throughout the spine. Increased activity seen in both knees, which favor degenerative disease. Small focus of increased activity is seen in the right iliac crest. Small focus of increased activity is seen in the lower sacrum, which is likely related to prior trau ma. No definite abnormal areas of increased activity or asymmetries are visualized in the study and dist ribution of radionuclide is homogeneous in the skull, spine, rib cages, sternum, pelvis and visualiz ed portions of the upper and lower extremities. Of incidental note, there is no evidence of mass abnormalities of the kidneys or obstructive uropath y. IMPRESSION: 1. Small foci of increased activity in the right iliac crest and lower sacrum likely related to tra wendy; please correlate with x-ray. 2. Likely degenerative changes of the spine and both knees. 3. Likely degenerative/post-traumatic changes of the right shoulder. 4. Likely post-traumatic changes of the left anterior rib cage. 5. No other definite skeletal abnormalities. RPTAT: HH .Loraine Hernandez MD, MD Date Time Electronically viewed and signed by .Loraine Hernandez MD, on 02/09/2017 17:49 .L/
[2017-02-09 20:00] VITALS: BP 157/75; RESP 16
[2017-02-09] MEDS: MAGNESIUM HYDROXIDE 30ML CUP PO PRN (21:23)
[2017-02-10 02:00] VITALS: BP 128/76; RESP 16
[2017-02-10 06:06] LABS: BASOPHIL # 0.1 10^3/ul (0.0-0.1); BASOPHILS % 0.8 % (0.0-2.0); EOSINOPHILS # 0.3 10^3/ul (0.0-0.5); EOSINOPHILS % 4.4 % (0.0-7.0); HEMATOCRIT 36.2 % (37.0-47.0); LYMPHOCYTES # 0.9 10^3/ul (0.8-2.9); LYMPHOCYTES % 14.1 % (15.0-51.0); MEAN CORPUSCULAR HEMOGLOBIN 30.2 pg (29.0-33.0); MEAN CORPUSCULAR HGB CONC 33.1 g/dl (32.0-37.0); MEAN PLATELET VOLUME 9.2 fl (7.4-10.4); MONOCYTE # 0.6 10^3/ul (0.3-0.9); MONOCYTES % 9.6 % (0.0-11.0); NEUTROPHIL # 4.3 10^3/ul (1.6-7.5); NEUTROPHILS % 70.6 % (39.0-77.0); PLATELET COUNT 284 10^3/UL (140-415); RED BLOOD COUNT 3.98 10^6/ul (4.20-5.40); RED CELL DISTRIBUTION WIDTH 13.2 % (11.5-14.5); WHITE BLOOD COUNT 6.2 10^3/ul (4.8-10.8)
[2017-02-10 06:43] LABS: MAGNESIUM 2.2 mg/dl (1.7-2.5); PHOSPHORUS 3.7 mg/dl (2.5-4.9)
[2017-02-10 06:57] LABS: ALBUMIN 3.4 g/dl (3.3-4.9); ALBUMIN/GLOBULIN RATIO 1.21; BILIRUBIN,INDIRECT 0.3 mg/dl (0-1.1); BILIRUBIN,TOTAL 0.3 mg/dl (0.2-1.3); CALCIUM 9.1 mg/dl (8.4-10.2); CREATININE 0.74 mg/dl (0.44-1.00); TOTAL PROTEIN 6.2 g/dl (6.1-8.1)
[2017-02-10 07:53] VITALS: BP 145/75; RESP 16
[2017-02-10] MEDS: FAMOTIDINE 20 MG TAB PO SCH ×2 (09:36→20:43)
[2017-02-10] MEDS: HYDROCODONE/APAP (5/325) TAB PO PRN (09:36)
[2017-02-10] MEDS: AMLODIPINE 5 MG TAB PO SCH ×2 (09:37→20:42)
--- NOTE | 2017-02-10 10:48 | PN ---
Date/Time of Note Date/Time of Note DATE: 02/10/17 TIME: 10:38 Assessment/Plan VTE Prophylaxis VTE Prophylaxis Intervention: SCD's Lines/Catheters IV [facility] Saline Lock Urinary Cath still in place: No Assessment/Plan Assessment/Plan 76 yo woman with: 1. Progressive weakness and lower extremity numbness extending up to her torso. Appreciate neurology recommendations, for now surgical intervention to the cervical spine is on hold, CD of the MRI with contrast of the thoracic spine done a couple weeks ago at [facility] will be requested. Bone scan not showing any metastatic disease per se. Discussed with Dr. Connors this morning, he wants a lumbar puncture done to rule out carcinomatosis. We will also send some of the studies for viral encephalitis or multiple sclerosis which are unlikely diagnosis currently. Cytology also was ordered from CSF. Per [facility] protocol, CAT scan of the head has been ordered pre-lumbar puncture. Follow-up further neurology recommendations. Patient remains stable 2. Hypertension: Continue Norvasc and carvedilol. 3. History of cervical cancer diagnosed 7 years ago, treated with surgery, chemotherapy and radiation, also has residual bilateral hydronephrosis and has been getting serial ureteric stent replacement (most recently 3 months ago). Normal renal function currently. 4. Hypokalemia: Replete K and mag today. 5. Cardiovascular risk: By history she is free of angina, dyspnea, syncope, diabetes, chronic kidney disease, cerebrovascular or peripheral arterial disease , palpitations, or any history of heart disease (ischemic, valvular, or cardiomyopathic). She is highly independent and functional, apart from the progressive gait disturbance that appears directly related to her spinal disease. Her Perioperative Cardiac Risk for major perioperative adverse event is estimated at low based on history and physical with one cardiac risk factor. Prophylaxis: SCDs for DVT prevention, Pepcid for GI prophylaxis Disposition: Appreciate neurology recommendations, ongoing workup of current neurological deficits. Attempting to rule out metastatic disease including CSF metastases. Subjective 24 Hr Interval Summary Free Text/Dictation Patient remained stable, neurological deficits are unchanged, CAT scan of the brain this morning pending pre-lumbar puncture. Lumbar puncture also ordered with cytology and additional viral and inflammatory workup. Patient agreeable with plan. Plan discussed with Dr. Connors this morning. Cervical spine surgical intervention on hold Exam/Review of Systems Vital Signs Vitals Vital Signs Date Time Temp Pulse Resp B/P Pulse Ox O2 Delivery O2 Flow Rate FiO2 02/10/17 07:53 97.9 67 16 145/75 96 02/07/17 15:41 Room Air Intake and Output 02/09/17 02/09/17 02/10/17 15:00 23:00 07:00 Intake Total 1650 ml 700 ml Output Total 0 ml Balance 1650 ml 700 ml Exam Constitutional: alert, oriented, well developed Respiratory: clear to auscultation, normal air movement Cardiovascular: nl pulses, regular rate and rhythm Gastrointestinal: non-tender, soft Musculoskeletal: nl extremities to inspection Extremities: normal pulses, other (No edema, clubbing or cyanosis) Neurological: JTAC II-XII intact, nl mental status, nl speech, other (Lower extremity weakness, right more pronounced than left, paresthesias bilaterally lower extremities, right foot drop) Results Result Diagram: 02/10/17 0539 02/10/17 0539 Results 24 hrs Laboratory Tests Test 02/10/17 05:39 White Blood Count 6.2 # Red Blood Count 3.98 L Hemoglobin 12.0 Hematocrit 36.2 L Mean Corpuscular Volume 91.0 Mean Corpuscular Hemoglobin 30.2 Mean Corpuscular Hemoglobin Concent 33.1 Red Cell Distribution Width 13.2 Platelet Count 284 Mean Platelet Volume 9.2 Neutrophils % 70.6 Lymphocytes % 14.1 L Monocytes % 9.6 Eosinophils % 4.4 Basophils % 0.8 Nucleated Red Blood Cells % 0.0 Neutrophils # 4.3 Lymphocytes # 0.9 Monocytes # 0.6 Eosinophils # 0.3 Basophils # 0.1 Nucleated Red Blood Cells # 0.0 Sodium Level 142 Potassium Level 4.0 Chloride Level 107 Carbon Dioxide Level 27 Anion Gap 12 Blood Urea Nitrogen 10 Creatinine 0.74 Glucose Level 99 Calcium Level 9.1 Phosphorus Level 3.7 Magnesium Level 2.2 Total Bilirubin 0.3 Direct Bilirubin 0.00 Indirect Bilirubin 0.3 Aspartate Amino Transf (AST/SGOT) 25 Alanine Aminotransferase (ALT/SGPT) 34 Alkaline Phosphatase 85 Total Protein 6.2 Albumin 3.4 Globulin 2.80 Albumin/Globulin Ratio 1.21 Medications Medications Current Medications Amlodipine Besylate (Norvasc) 5 mg BID PO Last administered on 02/10/17t 09:37 ; Admin Dose 5 MG; Start 02/06/17 at 21:00 Carvedilol (Coreg) 3.125 mg BID PO Last administered on 02/10/17 09:37; Admin Dose 3.125 MG; Start 02/06/17 at 21:00 Ondansetron HCl (Zofran Odt) 4 mg Q4H PRN ODT NAUSEA AND/OR VOMITING; Start at 19:00 Acetaminophen (Tylenol Tab) 650 mg Q6H PRN PO PAIN LEVEL 1-3 OR FEVER Last administered on 02/09/17 23:37; Admin Dose 650 MG; Start 02/06/17 at 19:00 Acetaminophen/ Hydrocodone Bitart ([place] (5/325)) 1 tab Q6H PRN PO MODERATE PAIN LEVEL 4-6 Last administered on 02/10/17 09:36; Admin Dose 1 TAB; Start 02/06/17 at 19:00 Docusate Sodium (Colace) 100 mg Q12H PRN PO CONSTIPATION Last administered on 02/08/17 20:14; Admin Dose 100 MG; Start 02/06/17 at 19:00 Famotidine (Pepcid) 20 mg Q12 PO Last administered on 02/10/17 09:36; Admin Dose 20 MG; Start 02/06/17 at 21:00 Lactulose (Enulose) 20 gm DAILY PRN PO CONSTIPATION; Start 02/09/17 at 14:30 Magnesium Hydroxide (Milk Of Mag) 30 ml DAILY PRN PO CONSTIPATION Last administered on 02/09/17 21:23; Admin Dose 30 ML; Start 02/09/17 at 14:30 Bisacodyl (Dulcolax Supp) 10 mg DAILY PRN [place] CONSTIPATION; Start 02/09/17 at 14:30 HALIMA CAMPBELL Feb 10, 2017 10:48
--- NOTE | 2017-02-10 11:22 | RADRPT ---
PROCEDURE: CT Brain without contrast. CLINICAL INDICATION: Weakness, pre LP. TECHNIQUE: A CT of the brain was performed on multidetector high-resolution CT scanner utilizing a xial sections from the skull base through the vertex without contrast. The scan was reviewed in sof t tissue brain and high frequency resolution bone algorithm windows. Images were reviewed on a high -resolution PACS workstation. One or more the following does reduction techniques were utilized: Aut omated exposure control, adjustment of the mA/ or kV according to patient's size, or use of iterativ e reconstruction technique. The exam CTDI = 44.88 mGy and the DLP = 720.23 mGy-cm. DICOM images are available. COMPARISON: Brain CT . FINDINGS: The ventricles and sulci are mildly to moderately prominent indicative of volume loss. There is no intracranial hemorrhage, mass effect or midline shift. No abnormal intra-axial or extra-axial fluid collections are seen. The de guzman/white matter differentiation is preserved. There are mild scattered foci of hypoattenuation in the white matter, which are nonspecific in etiol ogy but likely reflect chronic small vessel ischemic changes. There are mild intracranial vascular calcifications consistent with atherosclerosis. The visualized paranasal sinuses are essentially arabella ar. IMPRESSION: 1. No acute intracranial hemorrhage, transcortical infarction or mass effect. 2. Mild intracranial atherosclerosis and chronic small vessel ischemic changes. 3. Mild to moderate generalized cerebral volume loss. RPTAT: HFN .Raffaele Dewitt MD, MD Date Time Electronically viewed and signed by .Raffaele Dewitt MD, MD on 02/10/2017 11:22 .N/
[2017-02-10 11:53] LABS: INR 0.91; PROTIME 12.3 Sec (12.2-14.2)
[2017-02-10 11:54] LABS: PARTIAL THROMBOPLASTIN TIME 25.8 Sec (25.0-35.0)
--- NOTE | 2017-02-10 13:06 | RADRPT ---
PROCEDURE: Fluoroscopic guided lumbar puncture. CLINICAL INDICATION: Headache. TECHNIQUE: Prior to the procedure, informed consent was obtained. Risks including bleeding and in fection were explained to the patient. The patient understood and was willing to proceed. A proced ural pause was performed. The patient's name, date of , and procedure to be performed were nitish ified. Using local anesthetic, sterile technique, and fluoroscopic guidance, a 22-gauge spinal needle was a dvanced into the thecal sac at the L5-S1 level. Opening pressure was 8 cm of water. Only 2.5 mL of clear cerebrospinal fluid was aspirated. No further fluid was able to be aspirated. The fluid was s ent for laboratory analysis. The needle was removed. A dressing was applied. The patient tolerate d the procedure well. A total of 0.5 minutes of fluoroscopy time was used. 3 images were obtained with image intensifier. COMPARISON: None. FINDINGS: Images demonstrate the needle at the L5-S1 level in the thecal sac. IMPRESSION: Fluoroscopic guided lumbar puncture. Only 2.5 ml of clear fluid was able to be aspirated. The opening pressure was 8 cm of water. RPTAT: QQ .Bean Forrester MD, MD Date Time Electronically viewed and signed by .Bean Forrester MD, on 02/10/2017 13:06 .R/
[2017-02-10 13:44] LABS: CSF MN% 92.9 %; CSF PMN% 7.1 %
[2017-02-10 13:53] VITALS: BP 135/75; RESP 16
[2017-02-10 13:53] LABS: GLUCOSE,CSF 51 mg/dl (50-80)
[2017-02-10 14:08] LABS: CSF COLOR COLORLESS
[2017-02-10 14:09] LABS: CSF#TUBE COUNT TUBE#1; CSF#TUBES REC'D 2
--- NOTE | 2017-02-10 14:17 | CONS ---
Date/Time of Note Date/Time of Note DATE: 02/10/17 TIME: 14:09 Consult Date/Type/Reason Admit Date/Time Feb 07, 2017 at 15:13 Initial Consult Date 02/09/17 Type of Consultation: Neurology Reason for Consultation eval for LE weakness sensory level Ordering Provider: GRANT PALMA MD Subjective symptoms remain stable no worsening bone scan done yesterday, LP done today to eval for cytology Objective Vital Signs Date Time Temp Pulse Resp B/P Pulse Ox O2 Delivery O2 Flow Rate FiO2 02/10/17 13:53 98.4 63 16 135/75 97 02/07/17 15:41 Room Air Intake and Output 02/09/17 02/09/17 02/10/17 15:00 23:00 07:00 Intake Total 1650 ml 700 ml Output Total 0 ml Balance 1650 ml 700 ml Exam awake alert oriented x3 no aphasia follows all commands CN: II-XII intact Motor: UE strength mild weakness 5-/5 Right elbow flexion and extension Left 5/5 LE 5/5 proximal muscle groups mild weakness dorsiflexion plantar flexion 5-/5 on RLE compared to Left inversion and eversion are intact Sensory decreased PP sensation at T5 level decreased to all modalities sensory checked anterior and posterior T5 level at both Reflexes 2+ UE, KJ 2+ AJ absent toes are downgoing Results/Medications Result Diagram: 02/10/17 0539 02/10/17 0539 Results 24 hrs Laboratory Tests Test 02/10/17 05:39 02/10/17 10:21 02/10/17 12:12 White Blood Count 6.2 # Red Blood Count 3.98 L Hemoglobin 12.0 Hematocrit 36.2 L Mean Corpuscular Volume 91.0 Mean Corpuscular Hemoglobin 30.2 Mean Corpuscular Hemoglobin Concent 33.1 Red Cell Distribution Width 13.2 Platelet Count 284 Mean Platelet Volume 9.2 Neutrophils % 70.6 Lymphocytes % 14.1 L Monocytes % 9.6 Eosinophils % 4.4 Basophils % 0.8 Nucleated Red Blood Cells % 0.0 Neutrophils # 4.3 Lymphocytes # 0.9 Monocytes # 0.6 Eosinophils # 0.3 Basophils # 0.1 Nucleated Red Blood Cells # 0.0 Sodium Level 142 Potassium Level 4.0 Chloride Level 107 Carbon Dioxide Level 27 Anion Gap 12 Blood Urea Nitrogen 10 Creatinine 0.74 Glucose Level 99 Calcium Level 9.1 Phosphorus Level 3.7 Magnesium Level 2.2 Total Bilirubin 0.3 Direct Bilirubin 0.00 Indirect Bilirubin 0.3 Aspartate Amino Transf (AST/SGOT) 25 Alanine Aminotransferase (ALT/SGPT) 34 Alkaline Phosphatase 85 Total Protein 6.2 Albumin 3.4 Globulin 2.80 Albumin/Globulin Ratio 1.21 Prothrombin Time 12.3 Prothrombin Time Ratio 1.0 INR International Normalized Ratio 0.91 Activated Partial Thromboplast Time 25.8 CSF Tubes Submitted 2 CSF Volume 2.0 CSF Appearance CLEAR CSF Color COLORLESS CSF WBC 14 *H CSF RBC 0 CSF Cell Count Tube # TUBE#1 CSF Mononuclear Cells % (Auto) 92.9 CSF Polynuclear WBCs (%) 7.1 CSF Glucose 51 CSF Total Protein 134 H Medications Current Medications Amlodipine Besylate (Norvasc) 5 mg BID PO Last administered on 02/10/17 09:37 ; Admin Dose 5 MG; Start 02/06/17 at 21:00 Carvedilol (Coreg) 3.125 mg BID PO Last administered on 02/10/17 09:37; Admin Dose 3.125 MG; Start 02/06/17 at 21:00 Ondansetron HCl (Zofran Odt) 4 mg Q4H PRN ODT NAUSEA AND/OR VOMITING; Start at 19:00 Acetaminophen (Tylenol Tab) 650 mg Q6H PRN PO PAIN LEVEL 1-3 OR FEVER Last administered on 02/09/17 23:37; Admin Dose 650 MG; Start 02/06/17 at 19:00 Acetaminophen/ Hydrocodone Bitart ([place] (5/325)) 1 tab Q6H PRN PO MODERATE PAIN LEVEL 4-6 Last administered on 02/10/17 09:36; Admin Dose 1 TAB; Start 02/06/17 at 19:00 Docusate Sodium (Colace) 100 mg Q12H PRN PO CONSTIPATION Last administered on 02/08/17 20:14; Admin Dose 100 MG; Start 02/06/17 at 19:00 Famotidine (Pepcid) 20 mg Q12 PO Last administered on 02/10/17 09:36; Admin Dose 20 MG; Start 02/06/17 at 21:00 Lactulose (Enulose) 20 gm DAILY PRN PO CONSTIPATION; Start 02/09/17 at 14:30 Magnesium Hydroxide (Milk Of Mag) 30 ml DAILY PRN PO CONSTIPATION Last administered on 02/09/17t 21:23; Admin Dose 30 ML; Start 02/09/17 at 14:30 Bisacodyl (Dulcolax Supp) 10 mg DAILY PRN [place] CONSTIPATION; Start 02/09/17 at 14:30 Assessment/Plan Chief Complaint/Hosp Course 76 yo female w hx of cervical disease planned for cervical fusion surgery, 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 Unable to tolerate repeat contrast MRI of the Thoracic Spine Bone scan no significant findings of metastasis, repeat MRI here no intramedullary lesions LP done shows WBC: 14, Glucose of 51 and Protein: 134 further labs send for possible viral etiology, infectious would add on a West Nile Virus IgG and IgM CSF, viral cultures, encephalitis panel, bacterial cultures, cytology pending Infectious Disease consultation Problems: DONAL KAMARA MD Feb 10, 2017 14:17
--- NOTE | 2017-02-10 17:05 | CONS ---
DATE OF ADMISSION: 02/07/2017 DATE OF CONSULTATION: 02/10/2017 TYPE OF CONSULTATION: Infectious Disease. REASON FOR CONSULTATION: Antibiotic management. HISTORY OF PRESENT ILLNESS: The patient is a 76-year-old female with numerous problems, who comes i n now with weakness and is being seen for antibiotic management. Her past problems include: 1. Hypertension. 2. History of cervical cancer, treated with surgery and radiation. 3. Total abdominal hysterectomy. 4. Ventral hernia repair. Acutely, the patient presented to the emergency room with increasing falling, numbness in her legs, progressive weakness, which interferes with her ability to walk. 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 She has had increasing weakness over the last few months, with numbness in her legs, beginning in her feet and progressing now up to her upper abdomen. She finds herself unable to sense when she needs to go to the bathroom, both for urination and defecation. She also h as a history, as noted, of cervical CA, but declined chemotherapy and radiation. In February 2012, she had small-bowel obstruction secondary to recurrent cancer and underwent chemotherapy and radiati on at that time. She has chronic bilateral hydronephrosis with recurrent ureteral stents to maintai n patency, the most recent in October of 2016. 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 Mammography in 2014 showed no suspicious lesions. In December 2015 she was hospitalized for left-sided nephrolithiasis. The patient was seen in the emergency room in May 2016 for right lower quadrant pain. On admission, her white count is 5000, H and H of 12.2 and 36.3, platelet count 296,000. BUN and cr eatinine 15/0.94. HOSPITAL COURSE: The patient was seen by neurology, Dr. Denice Oro, and the reason was lower extremity weakness, sensory level. According to the physician, she is supposed to have cervical fus ion surgery. She has a history of ovarian CA with metastatic disease to the pelvis, increasing numb ness that began in her feet, ascending to abdominal T5 over the last month. Recommend MRI thoracic post-contrast imaging and bone scan to further evaluate for possible metastasis. Ordered imaging st at to expedite workup. Planned surgery by Dr. Connors. Thoracic MRI: Severe central canal stenosis at C7 through T1. Mild cord hyperintensity. C7-T1 severe stenosis. She had a lumbar spine MRI: M ultilevel broad-based disk osteophyte complexes. Severe central stenosis. She had a cervical spine MRI with again severe canal stenosis. She had lumbar puncture: Opening pressure 8 cm, only 2.5 mL of clear fluid was aspirated. The patient is currently on no antibiotic therapy. PAST MEDICAL HISTORY: Operations as outlined. FAMILY HISTORY: Noncontributory. SOCIAL HISTORY: She does not smoke, drink or abuse drugs. She is a former smoker. ALLERGIES: NONE TO PENICILLIN, SULFA OR FOODS. MEDICATIONS: Per chart. REVIEW OF SYSTEMS: As per HPI. PHYSICAL EXAMINATION: GENERAL: The patient is a well-developed, well-nourished, elderly female who is awake, responsive, in no acute distress. VITAL SIGNS: Stable. She is afebrile. SKIN: Without generalized rash. HEENT: Within normal limits. NECK: Supple. LYMPH NODES: None palpable. CHEST: Decreased breath sounds at the bases. HEART: Without murmur or gallop. ABDOMEN: Soft, nontender, without organosplenomegaly or masses. EXTREMITIES: Without cyanosis, clubbing, or edema. RECTAL AND GENITAL: Deferred. NEUROLOGIC: No obvious focal neurological abnormalities. IMPRESSION AND PLAN: The patient has severe central canal stenosis. She will require surgery. Her spinal fluid shows no evidence of infection. Her white count was 14, 93% mononuclear cells, 7% isiah ys, glucose 51, total protein is somewhat elevated at 134. Bone scan shows no significant findings of metastasis. The patient also will get serologies for West Nile virus, IgG and IgM. She has an e ncephalitis panel, which I concur with, and routine viral cultures and bacterial cultures. Her prot ein is somewhat elevated. We have to worry about the possibility of tumor, although that is unlikel y. We will await the results of the serologies. I will dictate my findings to Dr. Sharma, Dr. Kaleigh ford. Dictated By: KJ MAY MD, JD/ALEC Conf#: [id number] DID#: [id number]
[2017-02-10 20:32] VITALS: BP 155/80; RESP 18
[2017-02-10] MEDS: ACETAMINOPHEN 325 MG TAB PO PRN (20:42)
[2017-02-11 02:15] VITALS: BP 123/69; RESP 18; RESP 72
[2017-02-11 08:20] VITALS: BP 129/66; RESP 16
[2017-02-11] MEDS: AMLODIPINE 5 MG TAB PO SCH ×2 (08:40→21:29)
[2017-02-11] MEDS: FAMOTIDINE 20 MG TAB PO SCH ×2 (08:40→21:29)
[2017-02-11] MEDS: ACETAMINOPHEN 325 MG TAB PO PRN ×2 (09:20→15:02)
--- NOTE | 2017-02-11 12:10 | CONS ---
Date/Time of Note Date/Time of Note DATE: 02/11/17 TIME: 12:06 Assessment/Plan Assessment/Plan Additional Assessment/Plan 76 yo female w hx of cervical disease planned for cervical fusion surgery, 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 Unable to tolerate repeat contrast MRI of the Thoracic Spine Bone scan no significant findings of metastasis, repeat MRI here no intramedullary lesions LP done shows WBC: 14, Glucose of 51 and Protein: 134 further labs send for possible viral etiology, infectious Awaits West Nile Virus IgG and IgM CSF, viral cultures, encephalitis panel, bacterial cultures, cytology pending Infectious Disease consultation Consultation Date/Type/Reason Admit Date/Time Feb 07, 2017 at 15:13 Initial Consult Date 02/09/17 Type of Consultation: Neurology Referring Provider: GRANT PALMA MD 24 HR Interval Summary Free Text/Dictation Clinically unchanged. CSF cytology reports are pending. Exam/Review of Systems Vital Signs Vitals Vital Signs Date Time Temp Pulse Resp B/P Pulse Ox O2 Delivery O2 Flow Rate FiO2 02/11/17 08:20 98.4 70 16 129/66 98 02/07/17 15:41 Room Air Intake and Output 02/10/17 02/10/17 02/11/17 15:00 23:00 07:00 Intake Total 1000 ml 360 ml Balance 1000 ml 360 ml Exam Constitutional: alert, oriented, well developed Psych: nl mood/affect, no complaints Head: atraumatic, normocephalic Eyes: EOMI, nl conjunctiva, nl lids, nl sclera ENMT: mucosa pink and moist, nl external ears & nose, nl lips & teeth, nl nasal mucosa & septum Neck: non-tender, supple Respiratory: clear to auscultation, normal air movement Cardiovascular: nl pulses, regular rate and rhythm Gastrointestinal: nl liver, spleen, non-tender, soft Neurological: GOLF BALL MOLDER II-XII intact, other Skin: nl turgor, rash or lesions Results Result Diagram: 02/10/17 0539 02/10/17 0539 Results 24 hrs Laboratory Tests Test 02/10/17 12:12 CSF Tubes Submitted 2 CSF Volume 2.0 CSF Appearance CLEAR CSF Color COLORLESS CSF WBC 14 *H CSF RBC 0 CSF Cell Count Tube # TUBE#1 CSF Mononuclear Cells % (Auto) 92.9 CSF Polynuclear WBCs (%) 7.1 CSF Glucose 51 CSF Total Protein 134 H Imaging Free Text/Dictation awake alert oriented x3 no aphasia follows all commands CN: II-XII intact Motor: UE strength mild weakness 5-/5 Right elbow flexion and extension Left 5/5 LE 5/5 proximal muscle groups mild weakness dorsiflexion plantar flexion 5-/5 on RLE compared to Left inversion and eversion are intact Sensory decreased PP sensation at T5 level decreased to all modalities sensory checked anterior and posterior T5 level at both Reflexes 2+ UE, KJ 2+ AJ absent toes are downgoing Medications Medications Current Medications Amlodipine Besylate (Norvasc) 5 mg BID PO Last administered on 02/11/17 08:40 ; Admin Dose 5 MG; Start 02/06/17 at 21:00 Carvedilol (Coreg) 3.125 mg BID PO Last administered on 02/11/17 08:40; Admin Dose 3.125 MG; Start 02/06/17 at 21:00 Ondansetron HCl (Zofran Odt) 4 mg Q4H PRN ODT NAUSEA AND/OR VOMITING; Start at 19:00 Acetaminophen (Tylenol Tab) 650 mg Q6H PRN PO PAIN LEVEL 1-3 OR FEVER Last administered on 02/11/17 09:20; Admin Dose 650 MG; Start 02/06/17 at 19:00 Acetaminophen/ Hydrocodone Bitart ([place] (5/325)) 1 tab Q6H PRN PO MODERATE PAIN LEVEL 4-6 Last administered on 02/10/17 09:36; Admin Dose 1 TAB; Start 02/06/17 at 19:00 Docusate Sodium (Colace) 100 mg Q12H PRN PO CONSTIPATION Last administered on 02/08/17 20:14; Admin Dose 100 MG; Start 02/06/17 at 19:00 Famotidine (Pepcid) 20 mg Q12 PO Last administered on 02/11/17 08:40; Admin Dose 20 MG; Start 02/06/17 at 21:00 Lactulose (Enulose) 20 gm DAILY PRN PO CONSTIPATION; Start 02/09/17 at 14:30 Magnesium Hydroxide (Milk Of Mag) 30 ml DAILY PRN PO CONSTIPATION Last administered on 11/21/17at 21:23; Admin Dose 30 ML; Start 02/09/17 at 14:30 Bisacodyl (Dulcolax Supp) 10 mg DAILY PRN [place] CONSTIPATION; Start 02/09/17 at 14:30 ERIKA LOWERY MD Feb 11, 2017 12:10
--- NOTE | 2017-02-11 14:20 | PN ---
Date/Time of Note Date/Time of Note DATE: 02/11/17 TIME: 14:15 Assessment/Plan VTE Prophylaxis VTE Prophylaxis Intervention: SCD's Lines/Catheters [facility] Saline Lock Urinary Cath still in place: No Assessment/Plan Chief Complaint/Hosp Course 1. Progressive weakness and lower extremity numbness extending up to her torso. Appreciate neurology recommendations, for now surgical intervention to the cervical spine is on hold, CD of the MRI with contrast of the thoracic spine done a couple weeks ago at [facility] will be requested. Bone scan not showing any metastatic disease per se. Lumbar puncture done to rule out carcinomatosis and have sent fluid for evaluation of viral encephalitis or multiple sclerosis which are unlikely diagnosis currently. Cytology also was ordered from CSF 2. Hypertension: Continue Norvasc and carvedilol. 3. History of cervical cancer diagnosed 7 years ago, treated with surgery, chemotherapy and radiation, also has residual bilateral hydronephrosis and has been getting serial ureteric stent replacement (most recently 3 months ago). Normal renal function currently. 4. Hypokalemia: Repleted 5. Cardiovascular risk: By history she is free of angina, dyspnea, syncope, diabetes, chronic kidney disease, cerebrovascular or peripheral arterial disease , palpitations, or any history of heart disease (ischemic, valvular, or cardiomyopathic). She is highly independent and functional, apart from the progressive gait disturbance that appears directly related to her spinal disease. Her Perioperative Cardiac Risk for major perioperative adverse event is estimated at low based on history and physical with one cardiac risk factor. Prophylaxis: SCDs for DVT prevention, Pepcid for GI prophylaxis Disposition: Appreciate neurology recommendations, ongoing workup of current neurological deficits. Attempting to rule out metastatic disease including CSF metastases. Problems: Subjective 24 Hr Interval Summary Neurologic: focal-weakness Exam/Review of Systems Vital Signs Vitals Vital Signs Date Time Temp Pulse Resp B/P Pulse Ox O2 Delivery O2 Flow Rate FiO2 02/11/17 08:20 98.4 70 16 129/66 98 02/07/17 15:41 Room Air Intake and Output 02/10/17 02/10/17 02/11/17 15:00 23:00 07:00 Intake Total 1000 ml 360 ml Balance 1000 ml 360 ml Exam Constitutional: alert, oriented Respiratory: clear to auscultation Cardiovascular: regular rate and rhythm Gastrointestinal: soft, No distended Musculoskeletal: nl extremities to inspection Results Result Diagram: 02/10/17 0539 02/10/17 0539 Medications Medications Current Medications Amlodipine Besylate (Norvasc) 5 mg BID PO Last administered on 02/11/17 08:40 ; Admin Dose 5 MG; Start 02/06/17 at 21:00 Carvedilol (Coreg) 3.125 mg BID PO Last administered on 02/11/17 08:40; Admin Dose 3.125 MG; Start 02/06/17 at 21:00 Ondansetron HCl (Zofran Odt) 4 mg Q4H PRN ODT NAUSEA AND/OR VOMITING; Start at 19:00 Acetaminophen (Tylenol Tab) 650 mg Q6H PRN PO PAIN LEVEL 1-3 OR FEVER Last administered on 02/11/17 09:20; Admin Dose 650 MG; Start 02/06/17 at 19:00 Acetaminophen/ Hydrocodone Bitart ([place] (5/325)) 1 tab Q6H PRN PO MODERATE PAIN LEVEL 4-6 Last administered on 02/10/17 09:36; Admin Dose 1 TAB; Start 02/06/17 at 19:00 Docusate Sodium (Colace) 100 mg Q12H PRN PO CONSTIPATION Last administered on 02/08/17 20:14; Admin Dose 100 MG; Start 02/06/17 at 19:00 Famotidine (Pepcid) 20 mg Q12 PO Last administered on 02/11/17 08:40; Admin Dose 20 MG; Start 02/06/17 at 21:00 Lactulose (Enulose) 20 gm DAILY PRN PO CONSTIPATION; Start 02/09/17 at 14:30 Magnesium Hydroxide (Milk Of Mag) 30 ml DAILY PRN PO CONSTIPATION Last administered on 02/09/17 21:23; Admin Dose 30 ML; Start 02/09/17 at 14:30 Bisacodyl (Dulcolax Supp) 10 mg DAILY PRN [place] CONSTIPATION; Start 02/09/17 at 14:30 MICHAEL WATKINS Feb 11, 2017 14:20
[2017-02-11 14:56] VITALS: BP 142/67; RESP 16
[2017-02-11] MEDS: HYDROCODONE/APAP (5/325) TAB PO PRN (18:43)
[2017-02-11 20:00] VITALS: BP 119/71; RESP 20
[2017-02-12] MEDS: ACETAMINOPHEN 325 MG TAB PO PRN ×3 (00:59→21:56)
[2017-02-12 02:00] VITALS: BP 126/66; RESP 20
[2017-02-12 07:59] VITALS: BP 134/73; RESP 18
--- NOTE | 2017-02-12 08:09 | PN ---
DATE: 02/11/2017 SUBJECTIVE: No acute changes. Patient is alert, feels good, and looks comfortable. Denies pain di scomfort. No labs this morning. She is off antibiotics. PHYSICAL EXAMINATION: GENERAL: Well-developed, elderly woman who is alert, in no distress. HEENT: Head atraumatic, normocephalic. Sclerae anicteric. Buccal mucosa pink. NECK: Supple. CHEST: Rise symmetrical. Breath sounds clear. HEART: S1, S2. ABDOMEN: Soft, bowel sounds present. EXTREMITIES: Without cyanosis or edema. ASSESSMENT: 1. Progressive lower extremity weakness with numbness knee numbing up to her torso. 2. History of cervical cancer diagnosed 7 years ago, status post-surgical intervention and chemorad iation. 3. History of bilateral hydronephrosis with JJ stent placement 3 months ago. 4. History of total abdominal hysterectomy. PLAN: Patient remains stable. She has a lumbar puncture done does reveal no evidence of infection; however, there was a high protein of CSF. The CSF was sent for West Nile virus, IgM and other cult ures. She is being seen by neurology. The patient is clinically stable. We will await for final w orkup. Dictated By: SLIME NUÑEZ ROOF SLATER for JK HOFFMAN/ALEC Conf#: [id number] DID#: [id number]
--- NOTE | 2017-02-12 08:14 | PN ---
Date/Time of Note Date/Time of Note DATE: 02/12/17 TIME: 08:14 Assessment/Plan Lines/Catheters IV C[facility] Type (from [facility]): Saline Lock Urinary Cath still in place: GRANT Claudio MD Feb 12, 2017 08:14
--- NOTE | 2017-02-12 08:14 | CONS ---
Date/Time of Note Date/Time of Note DATE: 02/12/17 TIME: 08:14 GRANT PALMA MD Feb 12, 2017 08:14
[2017-02-12] MEDS: FAMOTIDINE 20 MG TAB PO SCH ×2 (09:44→21:57)
[2017-02-12] MEDS: AMLODIPINE 5 MG TAB PO SCH ×2 (09:45→21:57)
[2017-02-12] MEDS: CEFTRIAXONE 1 GM/50 ML (PMX) 50 ML IVPB SCH (11:21)
--- NOTE | 2017-02-12 12:55 | CONS ---
Date/Time of Note Date/Time of Note DATE: 02/12/17 TIME: 12:54 Assessment/Plan Assessment/Plan Additional Assessment/Plan 76 yo female w hx of cervical disease planned for cervical fusion surgery, 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 Unable to tolerate repeat contrast MRI of the Thoracic Spine Bone scan no significant findings of metastasis, repeat MRI here no intramedullary lesions LP done shows WBC: 14, Glucose of 51 and Protein: 134 further labs send for possible viral etiology, infectious Awaits West Nile Virus IgG and IgM CSF, viral cultures, encephalitis panel, bacterial cultures, cytology pending Infectious Disease consultation Consultation Date/Type/Reason Admit Date/Time Feb 07, 2017 at 15:13 Initial Consult Date 02/09/17 Type of Consultation: Neurology Referring Provider: GRANT PALMA MD 24 HR Interval Summary Free Text/Dictation Clinically doing well. Exam/Review of Systems Vital Signs Vitals Vital Signs Date Time Temp Pulse Resp B/P Pulse Ox O2 Delivery O2 Flow Rate FiO2 02/12/17 07:59 98.2 70 18 134/73 97 Intake and Output 02/11/17 02/11/17 02/12/17 14:59 22:59 06:59 Intake Total 1200 ml Balance 1200 ml Exam Alert and awake, following all commands, cranial nerves are intact, no dysarthria, Constitutional: alert, oriented, well developed Psych: nl mood/affect, no complaints Head: atraumatic, normocephalic Eyes: EOMI, nl conjunctiva, nl lids, nl sclera ENMT: mucosa pink and moist, nl external ears & nose, nl lips & teeth, nl nasal mucosa & septum Neck: non-tender, supple Respiratory: clear to auscultation, normal air movement Cardiovascular: nl pulses, regular rate and rhythm Gastrointestinal: nl liver, spleen, non-tender, soft Genitourinary - Female: nl adnexae, nl external genitalia Musculoskeletal: nl extremities to inspection, nl gait and stance Results Result Diagram: 02/10/17 0539 02/10/17 0539 Medications Medications Current Medications Amlodipine Besylate (Norvasc) 5 mg BID PO Last administered on 02/12/17t 09:45 ; Admin Dose 5 MG; Start 02/06/17 at 21:00 Carvedilol (Coreg) 3.125 mg BID PO Last administered on 02/12/17 09:45; Admin Dose 3.125 MG; Start 02/06/17 at 21:00 Ondansetron HCl (Zofran Odt) 4 mg Q4H PRN ODT NAUSEA AND/OR VOMITING Last administered on 02/11/17 18:43; Admin Dose 4 MG; Start 02/06/17 at 19:00 Acetaminophen (Tylenol Tab) 650 mg Q6H PRN PO PAIN LEVEL 1-3 OR FEVER Last administered on 02/12/17 00:59; Admin Dose 650 MG; Start 02/06/17 at 19:00 Acetaminophen/ Hydrocodone Bitart ([place] (5/325)) 1 tab Q6H PRN PO MODERATE PAIN LEVEL 4-6 Last administered on 02/11/17 18:43; Admin Dose 1 TAB; Start 02/06/17 at 19:00 Docusate Sodium (Colace) 100 mg Q12H PRN PO CONSTIPATION Last administered on 02/08/17 20:14; Admin Dose 100 MG; Start 02/06/17 at 19:00 Famotidine (Pepcid) 20 mg Q12 PO Last administered on 02/12/17 09:44; Admin Dose 20 MG; Start 02/06/17 at 21:00 Lactulose (Enulose) 20 gm DAILY PRN PO CONSTIPATION; Start 02/09/17 at 14:30 Magnesium Hydroxide (Milk Of Mag) 30 ml DAILY PRN PO CONSTIPATION Last administered on 02/09/17 21:23; Admin Dose 30 ML; Start 02/09/17 at 14:30 Bisacodyl 10 mg 10 mg DAILY PRN [place] CONSTIPATION; Start 02/09/17 at 14:30 Ceftriaxone Sodium (Rocephin) 50 ml @ 100 mls/hr Q24H IVPB Last administered on 02/12/17 11:21; Admin Dose 100 MLS/HR; Start 02/12/17 at 10:00 ERIKA LOWERY MD Feb 12, 2017 12:55
--- NOTE | 2017-02-12 13:45 | PN ---
Date/Time of Note Date/Time of Note DATE: 02/12/17 TIME: 13:42 Assessment/Plan VTE Prophylaxis VTE Prophylaxis Intervention: SCD's Lines/Catheters IV [facility]from [facility] Saline Lock Urinary Cath still in place: No Assessment/Plan Chief Complaint/Hosp Course 1. Progressive weakness and lower extremity numbness extending up to her torso. Appreciate neurology recommendations, for now surgical intervention to the cervical spine is on hold, CD of the MRI with contrast of the thoracic spine done a couple weeks ago at [facility] will be requested. Bone scan not showing any metastatic disease per se. Lumbar puncture done to rule out carcinomatosis and have sent fluid for evaluation of viral encephalitis or multiple sclerosis which are unlikely diagnosis currently. Cytology also was ordered from CSF 2. Hypertension: Continue Norvasc and carvedilol. 3. History of cervical cancer diagnosed 7 years ago, treated with surgery, chemotherapy and radiation, also has residual bilateral hydronephrosis and has been getting serial ureteric stent replacement (most recently 3 months ago). Normal renal function currently. 4. Hypokalemia: Repleted 5. Cardiovascular risk: By history she is free of angina, dyspnea, syncope, diabetes, chronic kidney disease, cerebrovascular or peripheral arterial disease , palpitations, or any history of heart disease (ischemic, valvular, or cardiomyopathic). She is highly independent and functional, apart from the progressive gait disturbance that appears directly related to her spinal disease. Her Perioperative Cardiac Risk for major perioperative adverse event is estimated at low based on history and physical with one cardiac risk factor. 6. UTI 2/2 chronic stents Rocephin IV Prophylaxis: SCDs for DVT prevention, Pepcid for GI prophylaxis Disposition: Appreciate neurology recommendations, ongoing workup of current neurological deficits. Attempting to rule out metastatic disease including CSF metastases. Problems: Subjective 24 Hr Interval Summary Neurologic: focal-weakness Exam/Review of Systems Vital Signs Vitals Vital Signs Date Time Temp Pulse Resp B/P Pulse Ox O2 Delivery O2 Flow Rate FiO2 02/12/17 07:59 98.2 70 18 134/73 97 Intake and Output 02/11/17 02/11/17 02/12/17 14:59 22:59 06:59 Intake Total 1200 ml Balance 1200 ml Exam Constitutional: alert, oriented Respiratory: clear to auscultation Cardiovascular: regular rate and rhythm Gastrointestinal: soft, No distended Musculoskeletal: nl extremities to inspection Results Result Diagram: 02/10/17 0539 02/10/17 0539 Medications Medications Current Medications Amlodipine Besylate (Norvasc) 5 mg BID PO Last administered on 02/12/17 09:45 ; Admin Dose 5 MG; Start 02/06/17 at 21:00 Carvedilol (Coreg) 3.125 mg BID PO Last administered on 02/12/17 09:45; Admin Dose 3.125 MG; Start 02/06/17 at 21:00 Ondansetron HCl (Zofran Odt) 4 mg Q4H PRN ODT NAUSEA AND/OR VOMITING Last administered on 02/11/17 18:43; Admin Dose 4 MG; Start 02/06/17 at 19:00 Acetaminophen (Tylenol Tab) 650 mg Q6H PRN PO PAIN LEVEL 1-3 OR FEVER Last administered on 02/12/17 00:59; Admin Dose 650 MG; Start 02/06/17 at 19:00 Acetaminophen/ Hydrocodone Bitart ([place] (5/325)) 1 tab Q6H PRN PO MODERATE PAIN LEVEL 4-6 Last administered on 02/11/17 18:43; Admin Dose 1 TAB; Start 02/06/17 at 19:00 Docusate Sodium (Colace) 100 mg Q12H PRN PO CONSTIPATION Last administered on 02/08/17 20:14; Admin Dose 100 MG; Start 02/06/17 at 19:00 Famotidine (Pepcid) 20 mg Q12 PO Last administered on 02/12/17 09:44; Admin Dose 20 MG; Start 02/06/17 at 21:00 Lactulose (Enulose) 20 gm DAILY PRN PO CONSTIPATION; Start 02/09/17 at 14:30 Magnesium Hydroxide (Milk Of Mag) 30 ml DAILY PRN PO CONSTIPATION Last administered on 02/09/17 21:23; Admin Dose 30 ML; Start 02/09/17 at 14:30 Bisacodyl 10 mg 10 mg DAILY PRN OR CONSTIPATION; Start 02/09/17 at 14:30 Ceftriaxone Sodium (Rocephin) 50 ml @ 100 mls/hr Q24H IVPB Last administered on 02/12/17 11:21; Admin Dose 100 MLS/HR; Start 02/12/17 at 10:00 MICHAEL WATKINS Feb 12, 2017 13:45
[2017-02-12 14:23] VITALS: BP 116/57; RESP 16
--- NOTE | 2017-02-12 15:10 | CONS ---
Date/Time of Note Date/Time of Note DATE: 02/12/17 TIME: 15:09 Assessment/Plan Assessment/Plan Chief Complaint/Hosp Course ID PROGRESS NOTE CURRENT ABX: DAY # => Ceftiaxone 24H INTERVAL SUMMARY * Clinically stable, resting comfortably on room air, no fevers, VSS, NAD * Chart reviewed => Progressive BLEXT paresis up to torso PHYSICAL EXAMINATION: GENERAL: VSS, afebrile, NAD HEENT: Unremarkable NECK: Supple, trach midline CHEST: Equal chest rise bilaterally, without dyspnea on observation HEART: RRR ABDOMEN: Soft, NT EXT: Warm, SKIN: No rash, no diaphoresis ID ASSESSMENT: 76 yo F admit VPH: 1. Progressive lower extremity weakness with numbness knee numbing up to her torso=> * MRI C-spine: Various levels of C-spine stenosis w/ C3-4: 4 mm posterior central disk/osteophyte complex. Severe central canal stenosis due to 4 mm posterior central disk/osteophyte complex and thick ligament flava. The adjacent spinal cord is compressed. Moderate to severe narrowing of the neural foramina bilaterally due to hypertrophic uncovertebral joints. C7-T1: 3 mm of spondylolisthesis. Renal bulging disc. Severe central canal stenosis due to spondylolisthesis, minimal bulging disc and thick ligament flava. The AP diameter of the spinal canal measures 3.6 mm. Mild narrowing of the neural foramina bilaterally due to hypertrophic uncovertebral joints. 4. C4-5: Mild central canal stenosis. Mild to moderate narrowing of the neural foramina bilaterally due to hypertrophic uncovertebral joints. * CD of the MRI with contrast of the thoracic spine done a couple weeks ago at [facility] will be requested. * Bone scan not showing any metastatic disease per se. * s/p LP 02/10/17-> ?meningitis w/WBC total elevated 14 with elevated protein * carcinomatosis and have sent fluid for evaluation of viral encephalitis or multiple sclerosis which are unlikely diagnosis currently. * Cytology also was ordered from CSF 2. History of cervical cancer diagnosed 7 years ago, status post-surgical intervention and chemoradiation. 3. UTI per UA => 02/06/17 UA w/1+ Leuk.Esterase/ hematuria @ 182 RBCs/ and pyuria @36 WBCs -> No micro sent ? 4. History of bilateral hydronephrosis with JJ stent placement 3 months ago. 5. History of total abdominal hysterectomy. ( )MRSA ABX ALLERGIES: Iodine INVASIVES: PIV CURRENT ABX: *Ceftriaxone ID RECOMMENDATIONS/PLAN: 1. Continue Ceftriaxone empiric coverage for UTI per UA 2. f/u on CSF results pending . Problems: Consultation Date/Type/Reason Admit Date/Time Feb 07, 2017 at 15:13 Initial Consult Date 02/09/17 Type of Consultation: ID Referring Provider: GRANT PALMA MD Exam/Review of Systems Vital Signs Vitals Vital Signs Date Time Temp Pulse Resp B/P Pulse Ox O2 Delivery O2 Flow Rate FiO2 02/12/17 14:23 98.4 66 16 116/57 95 Intake and Output 02/11/17 02/11/17 02/12/17 15:00 23:00 07:00 Intake Total 1200 ml Balance 1200 ml Results Result Diagram: 02/10/1739 02/10/17538 Medications Medications Current Medications Amlodipine Besylate (Norvasc) 5 mg BID PO Last administered on 02/12/17 09:45 ; Admin Dose 5 MG; Start 02/06/17 at 21:00 Carvedilol (Coreg) 3.125 mg BID PO Last administered on 02/12/17 09:45; Admin Dose 3.125 MG; Start 02/06/17 at 21:00 Ondansetron HCl (Zofran Odt) 4 mg Q4H PRN ODT NAUSEA AND/OR VOMITING Last administered on 02/11/17 18:43; Admin Dose 4 MG; Start 02/06/17 at 19:00 Acetaminophen (Tylenol Tab) 650 mg Q6H PRN PO PAIN LEVEL 1-3 OR FEVER Last administered on 02/12/17 14:49; Admin Dose 650 MG; Start 02/06/17 at 19:00 Acetaminophen/ Hydrocodone Bitart ([place] (5/325)) 1 tab Q6H PRN PO MODERATE PAIN LEVEL 4-6 Last administered on 02/11/17 18:43; Admin Dose 1 TAB; Start 02/06/17 at 19:00 Docusate Sodium (Colace) 100 mg Q12H PRN PO CONSTIPATION Last administered on 02/08/17 20:14; Admin Dose 100 MG; Start 02/06/17 at 19:00 Famotidine (Pepcid) 20 mg Q12 PO Last administered on 02/12/17 09:44; Admin Dose 20 MG; Start 02/06/17 at 21:00 Lactulose (Enulose) 20 gm DAILY PRN PO CONSTIPATION; Start 02/09/17 at 14:30 Magnesium Hydroxide (Milk Of Mag) 30 ml DAILY PRN PO CONSTIPATION Last administered on 02/09/17 21:23; Admin Dose 30 ML; Start 02/09/17 at 14:30 Bisacodyl 10 mg [address] CONSTIPATION; Start 02/09/17 at 14:30 Ceftriaxone Sodium (Rocephin) 50 ml @ 100 mls/hr Q24H IVPB Last administered on 02/12/17 11:21; Admin Dose 100 MLS/HR; Start 02/12/17 at 10:00 JORGE LUIS MONROY NP Feb 12, 2017 15:10
--- NOTE | 2017-02-12 16:03 | RADRPT ---
Vent Rate: 61 bpm RR Interval: 0 msec RI Interval: 168 msec QRS Duration: 72 msec QT Interval: 410 msec QTC Interval: 412 msec P-R-T [place]: 78 - 74 - 57 degrees Normal sinus rhythm Normal ECG Electronically Signed By: Cheng Cheema [id number]
[2017-02-12 17:01] LABS: VDRL, CSF NON-REACTIVE
[2017-02-12] MEDS: ENOXAPARIN 40 MG/0.4 ML SYG SC SCH (17:57)
[2017-02-12 20:32] VITALS: BP 120/69; RESP 16
[2017-02-12] MEDS: LACTULOSE 30ML CUP PO PRN (21:56)
[2017-02-13 02:00] VITALS: BP 129/67; RESP 16
[2017-02-13 07:21] LABS: CANCER ANTIGEN 125 16.8 U/ml (0.0-35.0)
[2017-02-13 07:25] LABS: CANCER ANTIGEN 19-9 18.1 U/ml (0.0-37.0)
[2017-02-13 07:33] VITALS: BP 136/76; RESP 18
[2017-02-13] MEDS: FAMOTIDINE 20 MG TAB PO SCH ×2 (09:17→20:46)
[2017-02-13] MEDS: CEFTRIAXONE 1 GM/50 ML (PMX) 50 ML IVPB SCH (09:17)
[2017-02-13] MEDS: AMLODIPINE 5 MG TAB PO SCH ×2 (09:18→20:46)
[2017-02-13] MEDS: ACETAMINOPHEN 325 MG TAB PO PRN ×3 (09:29→21:01)
[2017-02-13] MEDS: ENOXAPARIN 40 MG/0.4 ML SYG SC SCH (09:42)
--- NOTE | 2017-02-13 12:57 | PN ---
Date/Time of Note Date/Time of Note DATE: 02/13/17 TIME: 12:50 Assessment/Plan VTE Prophylaxis VTE Prophylaxis Intervention: SCD's Lines/Catheters IV [facility] [place] Urinary Cath still in place: No Assessment/Plan Chief Complaint/Hosp Course 1. Progressive weakness and lower extremity numbness extending up to her torso- stable not improving or worsening Appreciate neurology recommendations, for now surgical intervention to the cervical spine is on hold, CD of the MRI with contrast of the thoracic spine done a couple weeks ago at [facility] will be requested. Bone scan not showing any metastatic disease per se. Lumbar puncture done to rule out carcinomatosis and have sent fluid for evaluation of viral encephalitis or multiple sclerosis, neurology holding off on steroids or IVIG at this time Cytology also was ordered from CSF 2. Hypertension: Continue Norvasc and carvedilol. 3. History of cervical cancer diagnosed 7 years ago, treated with surgery, chemotherapy and radiation, also has residual bilateral hydronephrosis and has been getting serial ureteric stent replacement (most recently 3 months ago). Normal renal function currently. 4. Hypokalemia: Repleted 5. Cardiovascular risk: By history she is free of angina, dyspnea, syncope, diabetes, chronic kidney disease, cerebrovascular or peripheral arterial disease , palpitations, or any history of heart disease (ischemic, valvular, or cardiomyopathic). She is highly independent and functional, apart from the progressive gait disturbance that appears directly related to her spinal disease. Her Perioperative Cardiac Risk for major perioperative adverse event is estimated at low based on history and physical with one cardiac risk factor. 6. UTI 2/2 chronic stents Rocephin IV Prophylaxis: SCDs for DVT prevention, Pepcid for GI prophylaxis Disposition: Appreciate neurology recommendations, ongoing workup of current neurological deficits. Attempting to rule out metastatic disease including CSF metastases. Problems: Subjective 24 Hr Interval Summary Neurologic: focal-weakness Exam/Review of Systems Vital Signs Vitals Vital Signs Date Time Temp Pulse Resp B/P Pulse Ox O2 Delivery O2 Flow Rate FiO2 02/13/17 07:33 98.1 75 18 136/76 96 Intake and Output 02/12/17 02/12/17 02/13/17 15:00 23:00 07:00 Intake Total 550 ml 960 ml 840 ml Output Total 3 ml Balance 550 ml 960 ml 837 ml Exam Constitutional: alert, oriented Respiratory: clear to auscultation Cardiovascular: regular rate and rhythm Gastrointestinal: soft, No distended Musculoskeletal: nl extremities to inspection Neurological: focal weakness Results Result Diagram: 02/10/1753802/10/17538 Results 24 hrs Laboratory Tests Test 02/13/17 05:25 Erythrocyte Sedimentation Rate 43 H C-Reactive Protein High Sensitivity 0.10 CA 19-9 Antigen 18.1 CA 125 Antigen 16.8 Medications Medications Current Medications Amlodipine Besylate (Norvasc) 5 mg BID PO Last administered on 02/13/17 09:18 ; Admin Dose 5 MG; Start 02/06/17 at 21:00 Carvedilol (Coreg) 3.125 mg BID PO Last administered on 02/13/17 09:18; Admin Dose 3.125 MG; Start 02/06/17 at 21:00 Ondansetron HCl (Zofran Odt) 4 mg Q4H PRN ODT NAUSEA AND/OR VOMITING Last administered on 02/11/17 18:43; Admin Dose 4 MG; Start 02/06/17 at 19:00 Acetaminophen (Tylenol Tab) 650 mg Q6H PRN PO PAIN LEVEL 1-3 OR FEVER Last administered on 02/13/17 09:29; Admin Dose 650 MG; Start 02/06/17 at 19:00 Acetaminophen/ Hydrocodone Bitart ([place] (5/325)) 1 tab Q6H PRN PO MODERATE PAIN LEVEL 4-6 Last administered on 02/11/17 18:43; Admin Dose 1 TAB; Start 02/06/17 at 19:00 Docusate Sodium (Colace) 100 mg Q12H PRN PO CONSTIPATION Last administered on 02/08/17 20:14; Admin Dose 100 MG; Start 02/06/17 at 19:00 Famotidine (Pepcid) 20 mg Q12 PO Last administered on 02/13/17 09:17; Admin Dose 20 MG; Start 02/06/17 at 21:00 Lactulose (Enulose) 20 gm DAILY PRN PO CONSTIPATION Last administered on 21:56; Admin Dose 20 GM; Start 02/09/17 at 14:30 Magnesium Hydroxide (Milk Of Mag) 30 ml DAILY PRN PO CONSTIPATION Last administered on 02/09/17 21:23; Admin Dose 30 ML; Start 02/09/17 at 14:30 Bisacodyl 10 mg 10 mg DAILY PRN [place] CONSTIPATION; Start 02/09/17 at 14:30 Ceftriaxone Sodium (Rocephin) 50 ml @ 100 mls/hr Q24H IVPB Last administered on 02/13/17 09:17; Admin Dose 100 MLS/HR; Start 02/12/17 at 10:00 Enoxaparin Sodium (Lovenox) 40 mg DAILY SC Last administered on 02/13/17 09: 42; Admin Dose 40 MG; Start 02/12/17 at 17:30 MICHAEL WATKINS Feb 13, 2017 12:57
[2017-02-13 13:57] VITALS: BP 126/64; RESP 18
--- NOTE | 2017-02-13 15:12 | CONS ---
Date/Time of Note Date/Time of Note DATE: 02/13/17 TIME: 14:59 Assessment/Plan Assessment/Plan Chief Complaint/Hosp Course ID PROGRESS NOTE CURRENT ABX: DAY # => Ceftiaxone 24H INTERVAL SUMMARY * A/A/O -- currently sitting in the shower chair in the bathroom, no fevers, VSS , NAD * Chart reviewed => Progressive BLEXT paresis up to torso * ESR 43, CRP 0.1, (-)CA-19, (-)CA125 => WNV serology IgM/IgG pending from this am PHYSICAL EXAMINATION: GENERAL: VSS, afebrile, NAD HEENT: Unremarkable NECK: Supple, trach midline CHEST: Equal chest rise bilaterally, without dyspnea on observation HEART: RRR ABDOMEN: Soft, NT EXT: Warm, SKIN: No rash, no diaphoresis ID ASSESSMENT: 76 yo F admit VPH: 1. Progressive lower extremity weakness with numbness knee numbing up to her torso=> Transverse myelitis? * MRI C-spine: Various levels of C-spine stenosis w/ C3-4: 4 mm posterior central disk/osteophyte complex. Severe central canal stenosis due to 4 mm posterior central disk/osteophyte complex and thick ligament flava. The adjacent spinal cord is compressed. Moderate to severe narrowing of the neural foramina bilaterally due to hypertrophic uncovertebral joints. C7-T1: 3 mm of spondylolisthesis. Renal bulging disc. Severe central canal stenosis due to spondylolisthesis, minimal bulging disc and thick ligament flava. The AP diameter of the spinal canal measures 3.6 mm. Mild narrowing of the neural foramina bilaterally due to hypertrophic uncovertebral joints. 4. C4-5: Mild central canal stenosis. Mild to moderate narrowing of the neural foramina bilaterally due to hypertrophic uncovertebral joints. * CD of the MRI with contrast of the thoracic spine done a couple weeks ago at [facility] will be requested. * Bone scan not showing any metastatic disease per se. * s/p LP 02/10/17-> ?meningitis w/WBC total elevated 14 with elevated protein * carcinomatosis and have sent fluid for evaluation of viral encephalitis or multiple sclerosis which are unlikely diagnosis currently. * Cytology also was ordered from CSF 2. History of cervical cancer diagnosed 7 years ago, status post-surgical intervention and chemoradiation. * History of total abdominal hysterectomy. * CA-19 & CA-125 WNL 3. UTI per UA => 02/06/17 UA w/1+ Leuk.Esterase/ hematuria @ 182 RBCs/ and pyuria @36 WBCs -> No micro sent ? 4. History of bilateral hydronephrosis with JJ stent placement 3 months ago. (-)MRSA ABX ALLERGIES: Iodine INVASIVES: PIV CURRENT ABX: *Ceftriaxone ID RECOMMENDATIONS/PLAN: 1. Continue Ceftriaxone empiric coverage for UTI per UA 2. f/u on CSF results pending WNV, also WNV serology IgM/IgG sent this am 3. Puzzling picture => Transverse myelitis? due to acute inflammatory process vs spinal cord compression ? * Consider IV steroids ? . Problems: Consultation Date/Type/Reason Admit Date/Time Feb 07, 2017 at 15:13 Initial Consult Date 02/09/17 Type of Consultation: ID Referring Provider: GRANT PALMA MD Exam/Review of Systems Vital Signs Vitals Vital Signs Date Time Temp Pulse Resp B/P Pulse Ox O2 Delivery O2 Flow Rate FiO2 02/13/17 13:57 98.3 66 18 126/64 96 Intake and Output 02/12/17 02/12/17 02/13/17 15:00 23:00 07:00 Intake Total 550 ml 960 ml 840 ml Output Total 3 ml Balance 550 ml 960 ml 837 ml Results Result Diagram: 02/10/17 0539 02/10/17 0539 Results 24 hrs Laboratory Tests Test 02/13/17 05:25 Erythrocyte Sedimentation Rate 43 H C-Reactive Protein High Sensitivity 0.10 CA 19-9 Antigen 18.1 CA 125 Antigen 16.8 Medications Medications Current Medications Amlodipine Besylate (Norvasc) 5 mg BID PO Last administered on 02/13/17 09:18 ; Admin Dose 5 MG; Start 02/06/17 at 21:00 Carvedilol (Coreg) 3.125 mg BID PO Last administered on 02/13/17 09:18; Admin Dose 3.125 MG; Start 02/06/17 at 21:00 Ondansetron HCl (Zofran Odt) 4 mg Q4H PRN ODT NAUSEA AND/OR VOMITING Last administered on 02/11/17 18:43; Admin Dose 4 MG; Start 02/06/17 at 19:00 Acetaminophen (Tylenol Tab) 650 mg Q6H PRN PO PAIN LEVEL 1-3 OR FEVER Last administered on 02/13/17 09:29; Admin Dose 650 MG; Start 02/06/17 at 19:00 Acetaminophen/ Hydrocodone Bitart ([place] (5/325)) 1 tab Q6H PRN PO MODERATE PAIN LEVEL 4-6 Last administered on 02/11/17 18:43; Admin Dose 1 TAB; Start 02/06/17 at 19:00 Docusate Sodium (Colace) 100 mg Q12H PRN PO CONSTIPATION Last administered on 02/08/17 20:14; Admin Dose 100 MG; Start 02/06/17 at 19:00 Famotidine (Pepcid) 20 mg Q12 PO Last administered on 02/13/17 09:17; Admin Dose 20 MG; Start 02/06/17 at 21:00 Lactulose (Enulose) 20 gm DAILY PRN PO CONSTIPATION Last administered on 21:56; Admin Dose 20 GM; Start 02/09/17 at 14:30 Magnesium Hydroxide (Milk Of Mag) 30 ml DAILY PRN PO CONSTIPATION Last administered on 02/09/17 21:23; Admin Dose 30 ML; Start 02/09/17 at 14:30 Bisacodyl 10 mg 10 mg DAILY PRN [place] CONSTIPATION; Start 02/09/17 at 14:30 Ceftriaxone Sodium (Rocephin) 50 ml @ 100 mls/hr Q24H IVPB Last administered on 02/13/17 09:17; Admin Dose 100 MLS/HR; Start 02/12/17 at 10:00 Enoxaparin Sodium (Lovenox) 40 mg DAILY SC Last administered on 02/13/17 09: 42; Admin Dose 40 MG; Start 02/12/17 at 17:30 JORGE LUIS MONROY NP Feb 13, 2017 15:10
[2017-02-13] MEDS: MAGNESIUM HYDROXIDE 30ML CUP PO PRN (15:59)
[2017-02-13] MEDS: L ACIDOPHIL/B LACTIS/B LONGUM CAPSULE PO SCH ×2 (17:35→20:45)
[2017-02-13 20:00] VITALS: BP 149/72; RESP 16
[2017-02-14 02:42] VITALS: BP 132/67; RESP 16
[2017-02-14] MEDS: ACETAMINOPHEN 325 MG TAB PO PRN ×3 (05:41→21:16)
[2017-02-14 06:42] LABS: BASOPHILS % 0.7 % (0.0-2.0); EOSINOPHILS # 0.1 10^3/ul (0.0-0.5); EOSINOPHILS % 2.4 % (0.0-7.0); HEMATOCRIT 33.6 % (37.0-47.0); HEMOGLOBIN 11.4 g/dl (12.0-16.0); LYMPHOCYTES % 18.3 % (15.0-51.0); MEAN CORPUSCULAR HEMOGLOBIN 30.8 pg (29.0-33.0); MEAN CORPUSCULAR HGB CONC 33.9 g/dl (32.0-37.0); MEAN CORPUSCULAR VOLUME 90.8 fl (82.0-101.0); MEAN PLATELET VOLUME 9.6 fl (7.4-10.4); MONOCYTE # 0.5 10^3/ul (0.3-0.9); MONOCYTES % 9.2 % (0.0-11.0); NEUTROPHIL # 3.8 10^3/ul (1.6-7.5); PLATELET COUNT 286 10^3/UL (140-415); RED CELL DISTRIBUTION WIDTH 13.4 % (11.5-14.5); WHITE BLOOD COUNT 5.5 10^3/ul (4.8-10.8)
[2017-02-14 07:27] LABS: CALCIUM 9.4 mg/dl (8.4-10.2); CREATININE 0.76 mg/dl (0.44-1.00); MAGNESIUM 1.9 mg/dl (1.7-2.5); POTASSIUM 3.6 mmol/L (3.5-5.1)
[2017-02-14 08:03] VITALS: BP 141/71; RESP 18
[2017-02-14] MEDS: AMLODIPINE 5 MG TAB PO SCH ×2 (09:11→21:10)
[2017-02-14] MEDS: L ACIDOPHIL/B LACTIS/B LONGUM CAPSULE PO SCH ×3 (09:11→21:10)
[2017-02-14] MEDS: FAMOTIDINE 20 MG TAB PO SCH ×2 (09:11→21:09)
[2017-02-14] MEDS: CEFTRIAXONE 1 GM/50 ML (PMX) 50 ML IVPB SCH (09:13)
[2017-02-14] MEDS: ENOXAPARIN 40 MG/0.4 ML SYG SC SCH (09:16)
[2017-02-14 13:07] VITALS: BP 136/71; RESP 18
--- NOTE | 2017-02-14 15:06 | CONS ---
Date/Time of Note Date/Time of Note DATE: 02/14/17 TIME: 14:42 Assessment/Plan Assessment/Plan Chief Complaint/Hosp Course ID PROGRESS NOTE CURRENT ABX: DAY # => Ceftiaxone 24H INTERVAL SUMMARY * She is doing well -- had large BM yesterday was constipated and now feeling much better. No fevers, VSS, * A/A/O -- currently sitting up in bed -- still feels numbness from T11 Dermatome down to bilateral lower extremities, able to move them, does not feel lovenox injections, did not feel LP needle tap. * Appreciate Dr. Santiago's update to me: Neuro did not feel progressive BLEXT paresis up to torso was due to either spinal cord compression, nor due to transverse myelitis etiology; hence, IV steroids + IVIG deferred for lumbar tap evaluation of infectious etiology. * ESR 43, CRP 0.1, (-)CA-19, (-)CA125 => WNV serology IgM/IgG pending, CSF WNV pending PHYSICAL EXAMINATION: GENERAL: VSS, afebrile, NAD HEENT: Unremarkable NECK: Supple, trach midline CHEST: Equal chest rise bilaterally, without dyspnea on observation HEART: RRR ABDOMEN: Soft, NT EXT: Warm, SKIN: No rash, no diaphoresis ID ASSESSMENT: 76 yo F admit VPH: 1. Progressive lower extremity weakness with numbness knee numbing up to her torso=> appears to be due to viral meningitis * T11 Dermatome paresis, numbness, down to bilateral lower extremities, she is able to move them requires hand support to lift and bend legs at the knees, She does not feel Lovenox injections to lower ABD... did not feel LP needle tap. * s/p LP 02/10/17->Probable viral meningitis w/CSF WBC total elevated 14 / elevated protein * DDx: Spinal cord compression vs transverse myelitis => Per Dr. Santiago, Neuro felt meningitis more likely - IV ABX & IVIG deferred 2. Severe spinal stenosis per 02/07/17 MRI C-spine: Various levels of C-spine stenosis: * w/ C3-4: 4 mm posterior central disk/osteophyte complex. Severe central canal stenosis due to 4 mm posterior central disk/osteophyte complex and thick ligament flava. The adjacent spinal cord is compressed. Moderate to severe narrowing of the neural foramina bilaterally due to hypertrophic uncovertebral joints. * C7-T1: 3 mm of spondylolisthesis. Renal bulging disc. Severe central canal stenosis due to spondylolisthesis, minimal bulging disc and thick ligament flava. The AP diameter of the spinal canal measures 3.6 mm. Mild narrowing of the neural foramina bilaterally due to hypertrophic uncovertebral joints. * C4-5: Mild central canal stenosis. Mild to moderate narrowing of the neural foramina bilaterally due to hypertrophic uncovertebral joints. 3. History of cervical cancer diagnosed 7 years ago, status post-surgical intervention and chemoradiation. * Bone scan not showing any metastatic disease per se. * History of total abdominal hysterectomy. * CA-19 & CA-125 WNL 4. UTI per (+)UA => 02/06/17 UA w/1+ Leuk.Esterase/ hematuria @ 182 RBCs/ and pyuria @36 WBCs -> No micro sent from sample? 5. History of bilateral hydronephrosis with JJ stent placement 3 months ago. (-)MRSA ABX ALLERGIES: Iodine INVASIVES: PIV CURRENT ABX: *Ceftriaxone ID RECOMMENDATIONS/PLAN: 1. Consider anti-inflammatory NSAIDS vs IV steroids for viral [employer] infection. * ESR 43, CRP 0.1 => WNV serology IgM/IgG pending, CSF WNV pending 2. Continue Ceftriaxone empiric coverage for UTI per UA . Problems: Consultation Date/Type/Reason Admit Date/Time Feb 07, 2017 at 15:13 Initial Consult Date 02/09/17 Type of Consultation: ID Referring Provider: GRANT PALMA MD Exam/Review of Systems Vital Signs Vitals Vital Signs Date Time Temp Pulse Resp B/P Pulse Ox O2 Delivery O2 Flow Rate FiO2 02/14/17 13:07 97.9 76 18 136/71 97 Intake and Output 02/13/17 02/13/17 02/14/17 15:00 23:00 07:00 Intake Total 50 ml 1320 ml 1110 ml Output Total 4 ml Balance 50 ml 1316 ml 1110 ml Results Result Diagram: 02/14/1752402/14/17 0525 Results 24 hrs Laboratory Tests Test 02/14/17 05:25 White Blood Count 5.5 Red Blood Count 3.70 L Hemoglobin 11.4 L Hematocrit 33.6 L Mean Corpuscular Volume 90.8 Mean Corpuscular Hemoglobin 30.8 Mean Corpuscular Hemoglobin Concent 33.9 Red Cell Distribution Width 13.4 Platelet Count 286 Mean Platelet Volume 9.6 Neutrophils % 69.0 Lymphocytes % 18.3 Monocytes % 9.2 Eosinophils % 2.4 Basophils % 0.7 Nucleated Red Blood Cells % 0.0 Neutrophils # 3.8 Lymphocytes # 1.0 Monocytes # 0.5 Eosinophils # 0.1 Basophils # 0.0 Nucleated Red Blood Cells # 0.0 Sodium Level 144 Potassium Level 3.6 Chloride Level 105 Carbon Dioxide Level 31 Anion Gap 12 Blood Urea Nitrogen 10 Creatinine 0.76 Glucose Level 88 Calcium Level 9.4 Magnesium Level 1.9 Medications Medications Current Medications Amlodipine Besylate (Norvasc) 5 mg BID PO Last administered on 02/14/17 09:11 ; Admin Dose 5 MG; Start 02/06/17 at 21:00 Carvedilol (Coreg) 3.125 mg BID PO Last administered on 02/14/17 09:12; Admin Dose 3.125 MG; Start 02/06/17 at 21:00 Ondansetron HCl (Zofran Odt) 4 mg Q4H PRN ODT NAUSEA AND/OR VOMITING Last administered on 02/11/17 18:43; Admin Dose 4 MG; Start 02/06/17 at 19:00 Acetaminophen (Tylenol Tab) 650 mg Q6H PRN PO PAIN LEVEL 1-3 OR FEVER Last administered on 02/14/17 12:39; Admin Dose 650 MG; Start 02/06/17 at 19:00 Acetaminophen/ Hydrocodone Bitart ([place] (5/325)) 1 tab Q6H PRN PO MODERATE PAIN LEVEL 4-6 Last administered on 02/11/17 18:43; Admin Dose 1 TAB; Start 02/06/17 at 19:00 Docusate Sodium (Colace) 100 mg Q12H PRN PO CONSTIPATION Last administered on 02/08/17 20:14; Admin Dose 100 MG; Start 02/06/17 at 19:00 Famotidine (Pepcid) 20 mg Q12 PO Last administered on 02/14/17 09:11; Admin Dose 20 MG; Start 02/06/17 at 21:00 Lactulose (Enulose) 20 gm DAILY PRN PO CONSTIPATION Last administered on 21:56; Admin Dose 20 GM; Start 02/09/17 at 14:30 Magnesium Hydroxide (Milk Of Mag) 30 ml DAILY PRN PO CONSTIPATION Last administered on 02/13/17 15:59; Admin Dose 30 ML; Start 02/09/17 at 14:30 Bisacodyl 10 mg 10 mg DAILY PRN [place] CONSTIPATION; Start 02/09/17 at 14:30 Ceftriaxone Sodium (Rocephin) 50 ml @ 100 mls/hr Q24H IVPB Last administered on 02/14/17 09:13; Admin Dose 100 MLS/HR; Start 02/12/17 at 10:00 Enoxaparin Sodium (Lovenox) 40 mg DAILY SC Last administered on 02/14/17 09: 16; Admin Dose 40 MG; Start 02/12/17 at 17:30 Lactobacillus Acidophilus (Florajen3 Capsule) 1 each TID PO Last administered on 02/14/17 12:39; Admin Dose 1 EACH; Start 02/13/17 at 16:00 Multivitamins Therapeutic (Theragran) 1 tab DAILY PO ; Start 02/15/17 at 09:00 JORGE LUIS MONROY NP Feb 14, 2017 15:00
--- NOTE | 2017-02-14 15:26 | CONS ---
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 Unable to tolerate repeat contrast MRI of the Thoracic Spine Bone scan no significant findings of metastasis, repeat MRI here no intramedullary lesions LP done shows WBC: 14, Glucose of 51 and Protein: 134 further labs send for possible viral etiology, infectious [place] West Nile Virus IgG and IgM CSF, viral cultures, encephalitis panel, bacterial cultures, cytology pending Infectious Disease consultation Consultation Date/Type/Reason Admit Date/Time Feb 07, 2017 at 15:13 Initial Consult Date 02/09/17 Type of Consultation: ID Referring Provider: GRANT PALMA MD 24 HR Interval Summary Free Text/Dictation Clinically unchanged Constitutional: no complaints Exam/Review of Systems Vital Signs Vitals Vital Signs Date Time Temp Pulse Resp B/P Pulse Ox O2 Delivery O2 Flow Rate FiO2 02/14/17 13:07 97.9 76 18 136/71 97 Intake and Output 02/13/17 02/13/17 02/14/17 15:00 23:00 07:00 Intake Total 50 ml 1320 ml 1110 ml Output Total 4 ml Balance 50 ml 1316 ml 1110 ml Exam Alert, awake, oriented 3, neck is supple, no carotid bruits, gait was not tested, cranial nerves are intact, bilateral lower extremity weakness Constitutional: alert, oriented, well developed Psych: nl mood/affect, no complaints Head: atraumatic, normocephalic Eyes: EOMI, nl conjunctiva, nl lids, nl sclera ENMT: mucosa pink and moist, nl external ears & nose, nl lips & teeth, nl nasal mucosa & septum Neck: non-tender, supple Respiratory: clear to auscultation, normal air movement Cardiovascular: nl pulses, regular rate and rhythm Gastrointestinal: nl liver, spleen, non-tender, soft Extremities: normal pulses Results Result Diagram: 02/14/17 0525 02/14/17 0525 Results 24 hrs Laboratory Tests Test 02/14/17 05:25 White Blood Count 5.5 Red Blood Count 3.70 L Hemoglobin 11.4 L Hematocrit 33.6 L Mean Corpuscular Volume 90.8 Mean Corpuscular Hemoglobin 30.8 Mean Corpuscular Hemoglobin Concent 33.9 Red Cell Distribution Width 13.4 Platelet Count 286 Mean Platelet Volume 9.6 Neutrophils % 69.0 Lymphocytes % 18.3 Monocytes % 9.2 Eosinophils % 2.4 Basophils % 0.7 Nucleated Red Blood Cells % 0.0 Neutrophils # 3.8 Lymphocytes # 1.0 Monocytes # 0.5 Eosinophils # 0.1 Basophils # 0.0 Nucleated Red Blood Cells # 0.0 Sodium Level 144 Potassium Level 3.6 Chloride Level 105 Carbon Dioxide Level 31 Anion Gap 12 Blood Urea Nitrogen 10 Creatinine 0.76 Glucose Level 88 Calcium Level 9.4 Magnesium Level 1.9 Medications Medications Current Medications Amlodipine Besylate (Norvasc) 5 mg BID PO Last administered on 02/14/17 09:11 ; Admin Dose 5 MG; Start 02/06/17 at 21:00 Carvedilol (Coreg) 3.125 mg BID PO Last administered on 02/14/17 09:12; Admin Dose 3.125 MG; Start 02/06/17 at 21:00 Ondansetron HCl (Zofran Odt) 4 mg Q4H PRN ODT NAUSEA AND/OR VOMITING Last administered on 02/11/17 18:43; Admin Dose 4 MG; Start 02/06/17 at 19:00 Acetaminophen (Tylenol Tab) 650 mg Q6H PRN PO PAIN LEVEL 1-3 OR FEVER Last administered on 02/14/17 12:39; Admin Dose 650 MG; Start 02/06/17 at 19:00 Acetaminophen/ Hydrocodone Bitart ([place] (5/325)) 1 tab Q6H PRN PO MODERATE PAIN LEVEL 4-6 Last administered on 02/11/17 18:43; Admin Dose 1 TAB; Start 02/06/17 at 19:00 Docusate Sodium (Colace) 100 mg Q12H PRN PO CONSTIPATION Last administered on 02/08/17 20:14; Admin Dose 100 MG; Start 02/06/17 at 19:00 Famotidine (Pepcid) 20 mg Q12 PO Last administered on 02/14/17 09:11; Admin Dose 20 MG; Start 02/06/17 at 21:00 Lactulose (Enulose) 20 gm DAILY PRN PO CONSTIPATION Last administered on 21:56; Admin Dose 20 GM; Start 02/09/17 at 14:30 Magnesium Hydroxide (Milk Of Mag) 30 ml DAILY PRN PO CONSTIPATION Last administered on 02/13/17 15:59; Admin Dose 30 ML; Start 02/09/17 at 14:30 Bisacodyl 10 mg 10 mg DAILY PRN [place] CONSTIPATION; Start 02/09/17 at 14:30 Ceftriaxone Sodium (Rocephin) 50 ml @ 100 mls/hr Q24H IVPB Last administered on 02/14/17 09:13; Admin Dose 100 MLS/HR; Start 02/12/17 at 10:00 Enoxaparin Sodium (Lovenox) 40 mg DAILY SC Last administered on 02/14/17 09: 16; Admin Dose 40 MG; Start 02/12/17 at 17:30 Lactobacillus Acidophilus (Florajen3 Capsule) 1 each TID PO Last administered on 02/14/17 12:39; Admin Dose 1 EACH; Start 02/13/17 at 16:00 Multivitamins Therapeutic (Theragran) 1 tab DAILY PO ; Start 02/15/17 at 09:00 ERIKA LOWERY MD Feb 14, 2017 15:26
--- NOTE | 2017-02-14 16:42 | PN ---
Date/Time of Note Date/Time of Note DATE: 02/14/17 TIME: 16:42 Assessment/Plan VTE Prophylaxis VTE Prophylaxis Intervention: SCD's Lines/Catheters [facility] Urinary Cath still in place: No Assessment/Plan Chief Complaint/Hosp Course 1. Progressive weakness and lower extremity numbness extending up to her torso- stable not improving or worsening Appreciate neurology recommendations, for now surgical intervention to the cervical spine is on hold, CD of the MRI with contrast of the thoracic spine done a couple weeks ago at [facility] will be requested. Bone scan not showing any metastatic disease per se. Lumbar puncture done to rule out carcinomatosis and have sent fluid for evaluation of viral encephalitis or multiple sclerosis, neurology holding off on steroids or IVIG at this time Cytology also was ordered from CSF 2. Hypertension: Continue Norvasc and carvedilol. 3. History of cervical cancer diagnosed 7 years ago, treated with surgery, chemotherapy and radiation, also has residual bilateral hydronephrosis and has been getting serial ureteric stent replacement (most recently 3 months ago). Normal renal function currently. 4. Hypokalemia: Repleted 5. Cardiovascular risk: By history she is free of angina, dyspnea, syncope, diabetes, chronic kidney disease, cerebrovascular or peripheral arterial disease , palpitations, or any history of heart disease (ischemic, valvular, or cardiomyopathic). She is highly independent and functional, apart from the progressive gait disturbance that appears directly related to her spinal disease. Her Perioperative Cardiac Risk for major perioperative adverse event is estimated at low based on history and physical with one cardiac risk factor. 6. UTI 2/2 chronic stents Rocephin IV Prophylaxis: SCDs for DVT prevention, Pepcid for GI prophylaxis Disposition: Appreciate neurology recommendations, ongoing workup of current neurological deficits. Attempting to rule out metastatic disease including CSF metastases. Problems: Subjective 24 Hr Interval Summary Neurologic: focal-weakness Exam/Review of Systems Vital Signs Vitals Vital Signs Date Time Temp Pulse Resp B/P Pulse Ox O2 Delivery O2 Flow Rate FiO2 02/14/17 13:07 97.9 76 18 136/71 97 Intake and Output 02/13/17 02/13/17 02/14/17 14:59 22:59 06:59 Intake Total 50 ml 1320 ml 1110 ml Output Total 4 ml Balance 50 ml 1316 ml 1110 ml Exam Constitutional: alert, oriented Respiratory: clear to auscultation Cardiovascular: regular rate and rhythm Gastrointestinal: soft, No distended Musculoskeletal: nl extremities to inspection Results Result Diagram: 02/14/1752402/14/17 0525 Results 24 hrs Laboratory Tests Test 02/14/17 05:25 White Blood Count 5.5 Red Blood Count 3.70 L Hemoglobin 11.4 L Hematocrit 33.6 L Mean Corpuscular Volume 90.8 Mean Corpuscular Hemoglobin 30.8 Mean Corpuscular Hemoglobin Concent 33.9 Red Cell Distribution Width 13.4 Platelet Count 286 Mean Platelet Volume 9.6 Neutrophils % 69.0 Lymphocytes % 18.3 Monocytes % 9.2 Eosinophils % 2.4 Basophils % 0.7 Nucleated Red Blood Cells % 0.0 Neutrophils # 3.8 Lymphocytes # 1.0 Monocytes # 0.5 Eosinophils # 0.1 Basophils # 0.0 Nucleated Red Blood Cells # 0.0 Sodium Level 144 Potassium Level 3.6 Chloride Level 105 Carbon Dioxide Level 31 Anion Gap 12 Blood Urea Nitrogen 10 Creatinine 0.76 Glucose Level 88 Calcium Level 9.4 Magnesium Level 1.9 Medications Medications Current Medications Amlodipine Besylate (Norvasc) 5 mg BID PO Last administered on 02/14/17 09:11 ; Admin Dose 5 MG; Start 02/06/17 at 21:00 Carvedilol (Coreg) 3.125 mg BID PO Last administered on 02/14/17 09:12; Admin Dose 3.125 MG; Start 02/06/17 at 21:00 Ondansetron HCl (Zofran Odt) 4 mg Q4H PRN ODT NAUSEA AND/OR VOMITING Last administered on 02/11/17 18:43; Admin Dose 4 MG; Start 02/06/17 at 19:00 Acetaminophen (Tylenol Tab) 650 mg Q6H PRN PO PAIN LEVEL 1-3 OR FEVER Last administered on 02/14/17 12:39; Admin Dose 650 MG; Start 02/06/17 at 19:00 Acetaminophen/ Hydrocodone Bitart ([place] (5/325)) 1 tab Q6H PRN PO MODERATE PAIN LEVEL 4-6 Last administered on 02/11/17 18:43; Admin Dose 1 TAB; Start 02/06/17 at 19:00 Docusate Sodium (Colace) 100 mg Q12H PRN PO CONSTIPATION Last administered on 02/08/17 20:14; Admin Dose 100 MG; Start 02/06/17 at 19:00 Famotidine (Pepcid) 20 mg Q12 PO Last administered on 02/14/17 09:11; Admin Dose 20 MG; Start 02/06/17 at 21:00 Lactulose (Enulose) 20 gm DAILY PRN PO CONSTIPATION Last administered on 21:56; Admin Dose 20 GM; Start 02/09/17 at 14:30 Magnesium Hydroxide (Milk Of Mag) 30 ml DAILY PRN PO CONSTIPATION Last administered on 02/13/17 15:59; Admin Dose 30 ML; Start 02/09/17 at 14:30 Bisacodyl 10 mg 10 mg DAILY PRN [place] CONSTIPATION; Start 02/09/17 at 14:30 Ceftriaxone Sodium (Rocephin) 50 ml @ 100 mls/hr Q24H IVPB Last administered on 02/14/17 09:13; Admin Dose 100 MLS/HR; Start 02/12/17 at 10:00 Enoxaparin Sodium (Lovenox) 40 mg DAILY SC Last administered on 02/14/17 09: 16; Admin Dose 40 MG; Start 02/12/17 at 17:30 Lactobacillus Acidophilus (Florajen3 Capsule) 1 each TID PO Last administered on 02/14/17 12:39; Admin Dose 1 EACH; Start 02/13/17 at 16:00 Multivitamins Therapeutic (Theragran) 1 tab DAILY PO ; Start 02/15/17 at 09:00 MICHAEL WATKINS Feb 14, 2017 16:42
[2017-02-14 20:00] VITALS: BP 137/78; RESP 20
[2017-02-14 21:10] VITALS: BP 142/76; PULSE 64
[2017-02-15 02:40] VITALS: BP 123/74; RESP 20
[2017-02-15] MEDS: ACETAMINOPHEN 325 MG TAB PO PRN ×3 (06:56→22:55)
--- NOTE | 2017-02-15 07:54 | PN ---
Date/Time of Note Date/Time of Note DATE: 02/15/17 TIME: 07:50 Assessment/Plan VTE Prophylaxis VTE Prophylaxis Intervention: SCD's Lines/Catheters [facility] Saline Lock Central line still needed: No Urinary Cath still in place: No Assessment/Plan Assessment/Plan 1. Progressive weakness and lower extremity numbness extending up to her torso- stable not improving or worsening: possibly due to viral meningitis, but still not clear why she continues to have decreased sensation from T10 downward. Appreciate neurology recommendations, for now surgical intervention to the cervical spine is on hold, CD of the MRI with contrast of the thoracic spine done a couple weeks ago at [facility] will be requested. Bone scan not showing any metastatic disease per se. Lumbar puncture done to rule out carcinomatosis and have sent fluid for evaluation of viral encephalitis or multiple sclerosis, neurology holding off on steroids or IVIG at this time Cytology and other testing also was ordered from CSF; results pending. 2. Hypertension: Continue Norvasc and carvedilol. 3. History of cervical cancer diagnosed 7 years ago, treated with surgery, chemotherapy and radiation, also has residual bilateral hydronephrosis and has been getting serial ureteric stent replacement (most recently 3 months ago). Normal renal function currently. 4. Hypokalemia: Resolved. 5. Cardiovascular risk: By history she is free of angina, dyspnea, syncope, diabetes, chronic kidney disease, cerebrovascular or peripheral arterial disease , palpitations, or any history of heart disease (ischemic, valvular, or cardiomyopathic). She is highly independent and functional, apart from the progressive gait disturbance that appears directly related to her spinal disease. Her Perioperative Cardiac Risk for major perioperative adverse event is estimated at low based on history and physical with one cardiac risk factor. 6. UTI 2/2 chronic stents Rocephin IV Prophylaxis: SCDs for DVT prevention, Pepcid for GI prophylaxis Disposition: Appreciate neurology recommendations, ongoing workup of current neurological deficits. Attempting to rule out metastatic disease including CSF metastases. Subjective 24 Hr Interval Summary Free Text/Dictation No complaints other lower mid-torso and lower extremity numbness. Exam/Review of Systems Vital Signs Vitals Vital Signs Date Time Temp Pulse Resp B/P Pulse Ox O2 Delivery O2 Flow Rate FiO2 02/15/17 02:40 97.9 65 20 123/74 96 Intake and Output 02/14/17 02/14/17 02/15/17 15:00 23:00 07:00 Intake Total 50 ml 1640 ml 1060 ml Balance 50 ml 1640 ml 1060 ml Exam Constitutional: alert, oriented Psych: no complaints Head: normocephalic Eyes: nl conjunctiva ENMT: nl external ears & nose Neck: supple Respiratory: clear to auscultation Cardiovascular: regular rate and rhythm Gastrointestinal: soft Musculoskeletal: nl extremities to inspection, other (Numbness; decreased sensation to touch in feet) Neurological: numbness Results Result Diagram: 02/14/1752402/14/17524 Medications Medications Current Medications Amlodipine Besylate (Norvasc) 5 mg BID PO Last administered on 02/14/17 21:10 ; Admin Dose 5 MG; Start 02/06/17 at 21:00 Carvedilol (Coreg) 3.125 mg BID PO Last administered on 02/14/17 21:11; Admin Dose 3.125 MG; Start 02/06/17 at 21:00 Ondansetron HCl (Zofran Odt) 4 mg Q4H PRN ODT NAUSEA AND/OR VOMITING Last administered on 02/11/17 18:43; Admin Dose 4 MG; Start 02/06/17 at 19:00 Acetaminophen (Tylenol Tab) 650 mg Q6H PRN PO PAIN LEVEL 1-3 OR FEVER Last administered on 02/15/17 06:56; Admin Dose 650 MG; Start 02/06/17 at 19:00 Acetaminophen/ Hydrocodone Bitart ([place] (5/325)) 1 tab Q6H PRN PO MODERATE PAIN LEVEL 4-6 Last administered on 02/11/17 18:43; Admin Dose 1 TAB; Start 02/06/17 at 19:00 Docusate Sodium (Colace) 100 mg Q12H PRN PO CONSTIPATION Last administered on 02/08/17 20:14; Admin Dose 100 MG; Start 02/06/17 at 19:00 Famotidine (Pepcid) 20 mg Q12 PO Last administered on 02/14/17 21:09; Admin Dose 20 MG; Start 02/06/17 at 21:00 Lactulose (Enulose) 20 gm DAILY PRN PO CONSTIPATION Last administered on 21:56; Admin Dose 20 GM; Start 02/09/17 at 14:30 Magnesium Hydroxide (Milk Of Mag) 30 ml DAILY PRN PO CONSTIPATION Last administered on 02/13/17 15:59; Admin Dose 30 ML; Start 02/09/17 at 14:30 Bisacodyl 10 mg [address] CONSTIPATION; Start 02/09/17 at 14:30 Ceftriaxone Sodium (Rocephin) 50 ml @ 100 mls/hr Q24H IVPB Last administered on 02/14/17 09:13; Admin Dose 100 MLS/HR; Start 02/12/17 at 10:00 Enoxaparin Sodium (Lovenox) 40 mg DAILY SC Last administered on 02/14/17 09: 16; Admin Dose 40 MG; Start 02/12/17 at 17:30 Lactobacillus Acidophilus (Florajen3 Capsule) 1 each TID PO Last administered on 02/14/17 21:10; Admin Dose 1 EACH; Start 02/13/17 at 16:00 Multivitamins Therapeutic (Theragran) 1 tab DAILY PO ; Start 02/15/17 at 09:00 REUBEN COTTON MD Feb 15, 2017 07:54
[2017-02-15 08:02] VITALS: BP 137/77; RESP 16
[2017-02-15] MEDS: L ACIDOPHIL/B LACTIS/B LONGUM CAPSULE PO SCH ×3 (08:42→20:55)
[2017-02-15] MEDS: FAMOTIDINE 20 MG TAB PO SCH ×2 (08:43→20:54)
[2017-02-15] MEDS: MULTIVITAMINS THERAPEUTIC TAB PO SCH (08:43)
[2017-02-15] MEDS: AMLODIPINE 5 MG TAB PO SCH ×2 (08:43→20:55)
[2017-02-15] MEDS: ENOXAPARIN 40 MG/0.4 ML SYG SC SCH (08:50)
[2017-02-15] MEDS: CEFTRIAXONE 1 GM/50 ML (PMX) 50 ML IVPB SCH (10:15)
--- NOTE | 2017-02-15 12:46 | CONS ---
Date/Time of Note Date/Time of Note DATE: 02/15/17 TIME: 12:42 Consult Date/Type/Reason Admit Date/Time Feb 07, 2017 at 15:13 Initial Consult Date 02/09/17 Type of Consultation: Neurology Reason for Consultation weakness, sensory level T5 Ordering Provider: GRANT PALMA MD Subjective today reporting some improvement in sensation and mobility feels like she has more energy was able to feel the heparin injection in her abdomen Objective Vital Signs Date Time Temp Pulse Resp B/P Pulse Ox O2 Delivery O2 Flow Rate FiO2 02/15/17 08:02 98.4 79 16 137/77 96 Intake and Output 02/14/17 02/14/17 02/15/17 15:00 23:00 07:00 Intake Total 50 ml 1640 ml 1060 ml Balance 50 ml 1640 ml 1060 ml Exam awake alert oriented x3 no aphasia follows all commands CN: II-XII intact Motor: UE strength mild weakness 5-/5 Right elbow flexion and extension Left 5/5 LE 5/5 proximal muscle groups mild weakness dorsiflexion plantar flexion 5-/5 on RLE compared to Left inversion and eversion are intact Sensory decreased PP sensation at T5 level decreased to all modalities sensory checked anterior and posterior T5 level at both Reflexes 2+ UE, KJ 2+ AJ absent toes are downgoing Results/Medications Result Diagram: 02/14/1752402/14/17 0525 Results 24 hrs Laboratory Tests Test 02/15/17 08:01 Lab Scanned Report REFERENCE LAB Medications Current Medications Amlodipine Besylate (Norvasc) 5 mg BID PO Last administered on 02/15/17 08:43 ; Admin Dose 5 MG; Start 02/06/17 at 21:00 Carvedilol (Coreg) 3.125 mg BID PO Last administered on 02/15/17 08:42; Admin Dose 3.125 MG; Start 02/06/17 at 21:00 Ondansetron HCl (Zofran Odt) 4 mg Q4H PRN ODT NAUSEA AND/OR VOMITING Last administered on 02/11/17 18:43; Admin Dose 4 MG; Start 02/06/17 at 19:00 Acetaminophen (Tylenol Tab) 650 mg Q6H PRN PO PAIN LEVEL 1-3 OR FEVER Last administered on 02/15/17 06:56; Admin Dose 650 MG; Start 02/06/17 at 19:00 Acetaminophen/ Hydrocodone Bitart ([place] (5/325)) 1 tab Q6H PRN PO MODERATE PAIN LEVEL 4-6 Last administered on 02/11/17 18:43; Admin Dose 1 TAB; Start 02/06/17 at 19:00 Docusate Sodium (Colace) 100 mg Q12H PRN PO CONSTIPATION Last administered on 02/08/17 20:14; Admin Dose 100 MG; Start 02/06/17 at 19:00 Famotidine (Pepcid) 20 mg Q12 PO Last administered on 02/15/17 08:43; Admin Dose 20 MG; Start 02/06/17 at 21:00 Lactulose (Enulose) 20 gm DAILY PRN PO CONSTIPATION Last administered on 21:56; Admin Dose 20 GM; Start 02/09/17 at 14:30 Magnesium Hydroxide (Milk Of Mag) 30 ml DAILY PRN PO CONSTIPATION Last administered on 02/13/17 15:59; Admin Dose 30 ML; Start 02/09/17 at 14:30 Bisacodyl 10 mg 10 mg DAILY PRN [place] CONSTIPATION; Start 02/09/17 at 14:30 Ceftriaxone Sodium (Rocephin) 50 ml @ 100 mls/hr Q24H IVPB Last administered on 02/15/17 10:15; Admin Dose 100 MLS/HR; Start 02/12/17 at 10:00 Enoxaparin Sodium (Lovenox) 40 mg DAILY SC Last administered on 02/15/17 08: 50; Admin Dose 40 MG; Start 02/12/17 at 17:30 Lactobacillus Acidophilus (Florajen3 Capsule) 1 each TID PO Last administered on 02/15/17 08:42; Admin Dose 1 EACH; Start 02/13/17 at 16:00 Multivitamins Therapeutic (Theragran) 1 tab DAILY PO Last administered on 02/15 08:43; Admin Dose 1 TAB; Start 02/15/17 at 09:00 Assessment/Plan Chief Complaint/Hosp Course 76 yo female w hx of cervical disease planned for cervical fusion surgery, 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 Unable to tolerate repeat contrast MRI of the Thoracic Spine Bone scan no significant findings of metastasis, repeat MRI here no intramedullary lesions LP done shows WBC: 14, Glucose of 51 and Protein: 134 West Nile Virus IgM and IgG reviewed in miscellaneous results- negative follow up on CSF cytology there are no underlying lesions in the spinal cord to suggest this is a transverse myelitis receiving abx for UTI DVT ppx continue PT Problems: DONAL KAMARA MD Feb 15, 2017 12:46
--- NOTE | 2017-02-15 14:41 | CONS ---
Date/Time of Note Date/Time of Note DATE: 02/15/17 TIME: 14:37 Assessment/Plan Assessment/Plan Chief Complaint/Hosp Course SUBJECTIVE: No acute changes. Patient is alert, feels much better, looks comfortable. Abx: Rocephin PHYSICAL EXAMINATION: GENERAL: Well-developed, elderly woman who is alert, in no distress. HEENT: Head atraumatic, normocephalic. Sclerae anicteric. Buccal mucosa pink. NECK: Supple. CHEST: Rise symmetrical. Breath sounds clear. HEART: S1, S2. ABDOMEN: Soft, bowel sounds present. EXTREMITIES: Without cyanosis or edema. ASSESSMENT: 1. Progressive lower extremity weakness 2. History of cervical cancer diagnosed 7 years ago, status post-surgical intervention and chemoradiation. 3. History of bilateral hydronephrosis with JJ stent placement 3 months ago. 4. History of total abdominal hysterectomy. 5. Positive UA PLAN: Overall improving, continue present care, complete antibiotics, follow recommendations of specialists. DW staff/pt Problems: Consultation Date/Type/Reason Admit Date/Time Feb 07, 2017 at 15:13 Initial Consult Date 02/09/17 Type of Consultation: id Referring Provider: GRANT PALMA MD Exam/Review of Systems Vital Signs Vitals Vital Signs Date Time Temp Pulse Resp B/P Pulse Ox O2 Delivery O2 Flow Rate FiO2 02/15/17 08:02 98.4 79 16 137/77 96 Intake and Output 02/14/17 02/14/17 02/15/17 15:00 23:00 07:00 Intake Total 50 ml 1640 ml 1060 ml Balance 50 ml 1640 ml 1060 ml Results Result Diagram: 02/14/17 0525 02/14/17 0525 Results 24 hrs Laboratory Tests Test 02/15/17 08:01 Lab Scanned Report REFERENCE LAB Medications Medications Current Medications Amlodipine Besylate (Norvasc) 5 mg BID PO Last administered on 02/15/17 08:43 ; Admin Dose 5 MG; Start 02/06/17 at 21:00 Carvedilol (Coreg) 3.125 mg BID PO Last administered on 02/15/17 08:42; Admin Dose 3.125 MG; Start 02/06/17 at 21:00 Ondansetron HCl (Zofran Odt) 4 mg Q4H PRN ODT NAUSEA AND/OR VOMITING Last administered on 02/11/17 18:43; Admin Dose 4 MG; Start 02/06/17 at 19:00 Acetaminophen (Tylenol Tab) 650 mg Q6H PRN PO PAIN LEVEL 1-3 OR FEVER Last administered on 02/15/17 06:56; Admin Dose 650 MG; Start 02/06/17 at 19:00 Acetaminophen/ Hydrocodone Bitart ([place] (5/325)) 1 tab Q6H PRN PO MODERATE PAIN LEVEL 4-6 Last administered on 02/11/17 18:43; Admin Dose 1 TAB; Start 02/06/17 at 19:00 Docusate Sodium (Colace) 100 mg Q12H PRN PO CONSTIPATION Last administered on 02/08/17 20:14; Admin Dose 100 MG; Start 02/06/17 at 19:00 Famotidine (Pepcid) 20 mg Q12 PO Last administered on 02/15/17 08:43; Admin Dose 20 MG; Start 02/06/17 at 21:00 Lactulose (Enulose) 20 gm DAILY PRN PO CONSTIPATION Last administered on 21:56; Admin Dose 20 GM; Start 02/09/17 at 14:30 Magnesium Hydroxide (Milk Of Mag) 30 ml DAILY PRN PO CONSTIPATION Last administered on 02/13/17 15:59; Admin Dose 30 ML; Start 02/09/17 at 14:30 Bisacodyl 10 mg 10 mg DAILY PRN [place] CONSTIPATION; Start 02/09/17 at 14:30 Ceftriaxone Sodium (Rocephin) 50 ml @ 100 mls/hr Q24H IVPB Last administered on 02/15/17 10:15; Admin Dose 100 MLS/HR; Start 02/12/17 at 10:00 Enoxaparin Sodium (Lovenox) 40 mg DAILY SC Last administered on 02/15/17 08: 50; Admin Dose 40 MG; Start 02/12/17 at 17:30 Lactobacillus Acidophilus (Florajen3 Capsule) 1 each TID PO Last administered on 02/15/17 13:20; Admin Dose 1 EACH; Start 02/13/17 at 16:00 Multivitamins Therapeutic (Theragran) 1 tab DAILY PO Last administered on 02/15 08:43; Admin Dose 1 TAB; Start 02/15/17 at 09:00 SLIME NUÑEZ NP Feb 15, 2017 14:41
[2017-02-15 15:14] VITALS: BP 132/76; RESP 16
[2017-02-15 20:20] VITALS: BP 140/78; RESP 16
[2017-02-15] MEDS ORDERED: BARIUM SULF 2% 450 ML BTL (BERRY SMOOTHIE) PO ONE (20:30)
[2017-02-16 02:39] VITALS: BP 139/82; RESP 16
[2017-02-16 06:36] LABS: BASOPHILS % 0.8 % (0.0-2.0); EOSINOPHILS # 0.2 10^3/ul (0.0-0.5); EOSINOPHILS % 3.4 % (0.0-7.0); HEMOGLOBIN 11.6 g/dl (12.0-16.0); LYMPHOCYTES # 0.9 10^3/ul (0.8-2.9); LYMPHOCYTES % 18.6 % (15.0-51.0); MEAN CORPUSCULAR HEMOGLOBIN 30.5 pg (29.0-33.0); MEAN CORPUSCULAR HGB CONC 33.1 g/dl (32.0-37.0); MEAN CORPUSCULAR VOLUME 92.1 fl (82.0-101.0); MEAN PLATELET VOLUME 9.3 fl (7.4-10.4); MONOCYTE # 0.5 10^3/ul (0.3-0.9); MONOCYTES % 9.9 % (0.0-11.0); NEUTROPHIL # 3.2 10^3/ul (1.6-7.5); NEUTROPHILS % 66.9 % (39.0-77.0); PLATELET COUNT 289 10^3/UL (140-415); RED CELL DISTRIBUTION WIDTH 13.3 % (11.5-14.5); WHITE BLOOD COUNT 4.7 10^3/ul (4.8-10.8)
[2017-02-16 06:58] LABS: CALCIUM 9.5 mg/dl (8.4-10.2); CREATININE 0.77 mg/dl (0.44-1.00); POTASSIUM 4.3 mmol/L (3.5-5.1)
[2017-02-16 07:56] VITALS: BP 148/68; RESP 18
[2017-02-16] MEDS: ENOXAPARIN 40 MG/0.4 ML SYG SC SCH (09:00)
[2017-02-16] MEDS: L ACIDOPHIL/B LACTIS/B LONGUM CAPSULE PO SCH ×3 (09:00→20:37)
--- NOTE | 2017-02-16 09:44 | PN ---
Date/Time of Note Date/Time of Note DATE: 02/16/17 TIME: 09:43 Assessment/Plan VTE Prophylaxis VTE Prophylaxis Intervention: SCD's Lines/Catheters IV Catheter Type (from [facility]): [facility] Urinary Cath still in place: No Assessment/Plan Assessment/Plan 76 yo woman with: 1. Progressive weakness and lower extremity numbness extending up to her torso. Appreciate additional recommendations from infectious disease and neurology, no infectious etiology found yet for the abnormal leukocytosis and elevated protein in the CSF last week, West Nile virus has been ruled out, additional HSV and VZV serologies are pending. Per neurology and infectious disease, repeating lumbar puncture today with flow cytometry. Also serologies for multiple sclerosis are pending. CAT scan of the abdomen and pelvis without IV contrast since patient was contrast allergy reported. Patient remains stable 2. Hypertension: Continue Norvasc and carvedilol. 3. History of cervical cancer diagnosed 7 years ago, treated with surgery, chemotherapy and radiation, also has residual bilateral hydronephrosis and has been getting serial ureteric stent replacement (most recently 3 months ago). Normal renal function currently. 4. ? Urinary tract infection, urine culture 02/13 no growth to date. Will discuss with ID length of treatment for Rocephin. 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 CAT scan of the abdomen and pelvis with IV contrast pending. Prophylaxis: SCDs for DVT prevention, Pepcid for GI prophylaxis Disposition: Appreciate neurology and infectious disease recommendations, ongoing workup of current neurological deficits. Attempting to rule out viral encephalitis/myelitis versus noninfectious/inflammatory or metastatic process. Subjective 24 Hr Interval Summary Free Text/Dictation Patient remained stable, still with ongoing workup regarding neurological deficits, plan for repeat lumbar puncture today along with CAT scan of the abdomen and pelvis without contrast given contrast allergy. Again per neurology notes which is detailed, repeat LP today is requested in order to reevaluate cell count and protein level as results from last week may be misleading. Exam/Review of Systems Vital Signs Vitals Vital Signs Date Time Temp Pulse Resp B/P Pulse Ox O2 Delivery O2 Flow Rate FiO2 02/16/17 07:56 98.6 72 18 148/68 94 Intake and Output 02/15/17 02/15/17 02/16/17 15:00 23:00 07:00 Intake Total 50 ml 2800 ml Balance 50 ml 2800 ml Exam Constitutional: alert, oriented, well developed Respiratory: clear to auscultation, normal air movement Gastrointestinal: non-tender, soft Musculoskeletal: nl extremities to inspection Extremities: normal pulses, other Neurological: COMPUTER SYSTEM TECHNICIAN II-XII intact, nl mental status, nl speech, other (With unchanged lower extremities weakness, right foot drop and sensory deficit primarily lower extremity and T5 dermatomal level) Results Result Diagram: 02/16/17 0558 02/16/17 0558 Results 24 hrs Laboratory Tests Test 02/16/17 05:58 White Blood Count 4.7 L Red Blood Count 3.80 L Hemoglobin 11.6 L Hematocrit 35.0 L Mean Corpuscular Volume 92.1 Mean Corpuscular Hemoglobin 30.5 Mean Corpuscular Hemoglobin Concent 33.1 Red Cell Distribution Width 13.3 Platelet Count 289 Mean Platelet Volume 9.3 Neutrophils % 66.9 Lymphocytes % 18.6 Monocytes % 9.9 Eosinophils % 3.4 Basophils % 0.8 Nucleated Red Blood Cells % 0.0 Neutrophils # 3.2 Lymphocytes # 0.9 Monocytes # 0.5 Eosinophils # 0.2 Basophils # 0.0 Nucleated Red Blood Cells # 0.0 Sodium Level 145 H Potassium Level 4.3 Chloride Level 107 Carbon Dioxide Level 31 Anion Gap 11 Blood Urea Nitrogen 8 Creatinine 0.77 Glucose Level 97 Calcium Level 9.5 Medications Medications Current Medications Amlodipine Besylate (Norvasc) 5 mg BID PO Last administered on 02/15/17 20:55 ; Admin Dose 5 MG; Start 02/06/17 at 21:00 Carvedilol (Coreg) 3.125 mg BID PO Last administered on 02/15/17 20:55; Admin Dose 3.125 MG; Start 02/06/17 at 21:00 Ondansetron HCl (Zofran Odt) 4 mg Q4H PRN ODT NAUSEA AND/OR VOMITING Last administered on 02/11/17 18:43; Admin Dose 4 MG; Start 02/06/17 at 19:00 Acetaminophen (Tylenol Tab) 650 mg Q6H PRN PO PAIN LEVEL 1-3 OR FEVER Last administered on 02/15/17 22:55; Admin Dose 650 MG; Start 02/06/17 at 19:00 Acetaminophen/ Hydrocodone Bitart ([place] (5/325)) 1 tab Q6H PRN PO MODERATE PAIN LEVEL 4-6 Last administered on 02/11/17 18:43; Admin Dose 1 TAB; Start 02/06/17 at 19:00 Docusate Sodium (Colace) 100 mg Q12H PRN PO CONSTIPATION Last administered on 02/08/17 20:14; Admin Dose 100 MG; Start 02/06/17 at 19:00 Famotidine (Pepcid) 20 mg Q12 PO Last administered on 02/15/17 20:54; Admin Dose 20 MG; Start 02/06/17 at 21:00 Lactulose (Enulose) 20 gm DAILY PRN PO CONSTIPATION Last administered on 21:56; Admin Dose 20 GM; Start 02/09/17 at 14:30 Magnesium Hydroxide (Milk Of Mag) 30 ml DAILY PRN PO CONSTIPATION Last administered on 02/13/17 15:59; Admin Dose 30 ML; Start 02/09/17 at 14:30 Bisacodyl 10 mg 10 mg DAILY PRN [place] CONSTIPATION Last administered on 23:02; Admin Dose 10 MG; Start 02/09/17 at 14:30 Ceftriaxone Sodium (Rocephin) 50 ml @ 100 mls/hr Q24H IVPB Last administered on 02/15/17 10:15; Admin Dose 100 MLS/HR; Start 02/12/17 at 10:00 Enoxaparin Sodium (Lovenox) 40 mg DAILY SC Last administered on 02/15/17 08: 50; Admin Dose 40 MG; Start 02/12/17 at 17:30 Lactobacillus Acidophilus (Florajen3 Capsule) 1 each TID PO Last administered on 02/15/17 20:55; Admin Dose 1 EACH; Start 02/13/17 at 16:00 Multivitamins Therapeutic (Theragran) 1 tab DAILY PO Last administered on 02/15 08:43; Admin Dose 1 TAB; Start 02/15/17 at 09:00 HALIMA CAMPBELL Feb 16, 2017 09:44
[2017-02-16] MEDS: MULTIVITAMINS THERAPEUTIC TAB PO SCH (10:09)
[2017-02-16] MEDS: FAMOTIDINE 20 MG TAB PO SCH ×2 (10:09→20:38)
[2017-02-16] MEDS: ACETAMINOPHEN 325 MG TAB PO PRN ×2 (10:10→20:40)
[2017-02-16] MEDS: CEFTRIAXONE 1 GM/50 ML (PMX) 50 ML IVPB SCH (10:10)
[2017-02-16] MEDS: AMLODIPINE 5 MG TAB PO SCH ×2 (10:10→20:38)
--- NOTE | 2017-02-16 12:07 | CONS ---
Date/Time of Note Date/Time of Note DATE: 02/16/17 TIME: 12:04 Consult Date/Type/Reason Admit Date/Time Feb 07, 2017 at 15:13 Initial Consult Date 02/09/17 Type of Consultation: Neurology Reason for Consultation T5 numbness weakness Ordering Provider: GRANT PALMA MD Subjective feels bloated today per report only has allergy to BRUNA not to iodine she is planned for CT abdomen/pelvis without contrast Objective Vital Signs Date Time Temp Pulse Resp B/P Pulse Ox O2 Delivery O2 Flow Rate FiO2 02/16/17 07:56 98.6 72 18 148/68 94 Intake and Output 02/15/17 02/15/17 02/16/17 15:00 23:00 07:00 Intake Total 50 ml 2800 ml Balance 50 ml 2800 ml Exam awake alert oriented x3 no aphasia follows all commands CN: II-XII intact Motor: UE strength mild weakness 5-/5 Right elbow flexion and extension Left 5/5 LE 5/5 proximal muscle groups mild weakness dorsiflexion plantar flexion 5-/5 on RLE compared to Left inversion and eversion are intact Sensory decreased PP sensation at T5 level decreased to all modalities sensory checked anterior and posterior T5 level at both Reflexes 2+ UE, KJ 2+ AJ absent toes are downgoing Results/Medications Result Diagram: 02/16/17 0558 02/16/17 0558 Results 24 hrs Laboratory Tests Test 02/16/17 05:58 White Blood Count 4.7 L Red Blood Count 3.80 L Hemoglobin 11.6 L Hematocrit 35.0 L Mean Corpuscular Volume 92.1 Mean Corpuscular Hemoglobin 30.5 Mean Corpuscular Hemoglobin Concent 33.1 Red Cell Distribution Width 13.3 Platelet Count 289 Mean Platelet Volume 9.3 Neutrophils % 66.9 Lymphocytes % 18.6 Monocytes % 9.9 Eosinophils % 3.4 Basophils % 0.8 Nucleated Red Blood Cells % 0.0 Neutrophils # 3.2 Lymphocytes # 0.9 Monocytes # 0.5 Eosinophils # 0.2 Basophils # 0.0 Nucleated Red Blood Cells # 0.0 Sodium Level 145 H Potassium Level 4.3 Chloride Level 107 Carbon Dioxide Level 31 Anion Gap 11 Blood Urea Nitrogen 8 Creatinine 0.77 Glucose Level 97 Calcium Level 9.5 Medications Current Medications Amlodipine Besylate (Norvasc) 5 mg BID PO Last administered on 02/16/17 10:10 ; Admin Dose 5 MG; Start 02/06/17 at 21:00 Carvedilol (Coreg) 3.125 mg BID PO Last administered on 02/16/17 10:09; Admin Dose 3.125 MG; Start 02/06/17 at 21:00 Ondansetron HCl (Zofran Odt) 4 mg Q4H PRN ODT NAUSEA AND/OR VOMITING Last administered on 02/11/17 18:43; Admin Dose 4 MG; Start 02/06/17 at 19:00 Acetaminophen (Tylenol Tab) 650 mg Q6H PRN PO PAIN LEVEL 1-3 OR FEVER Last administered on 02/16/17 10:10; Admin Dose 650 MG; Start 02/06/17 at 19:00 Acetaminophen/ Hydrocodone Bitart ([place] (5/325)) 1 tab Q6H PRN PO MODERATE PAIN LEVEL 4-6 Last administered on 02/11/17 18:43; Admin Dose 1 TAB; Start 02/06/17 at 19:00 Docusate Sodium (Colace) 100 mg Q12H PRN PO CONSTIPATION Last administered on 02/08/17 20:14; Admin Dose 100 MG; Start 02/06/17 at 19:00 Famotidine (Pepcid) 20 mg Q12 PO Last administered on 02/16/17 10:09; Admin Dose 20 MG; Start 02/06/17 at 21:00 Lactulose (Enulose) 20 gm DAILY PRN PO CONSTIPATION Last administered on 21:56; Admin Dose 20 GM; Start 02/09/17 at 14:30 Magnesium Hydroxide (Milk Of Mag) 30 ml DAILY PRN PO CONSTIPATION Last administered on 02/13/17 15:59; Admin Dose 30 ML; Start 02/09/17 at 14:30 Bisacodyl 10 mg 10 mg DAILY PRN [place] CONSTIPATION Last administered on 23:02; Admin Dose 10 MG; Start 02/09/17 at 14:30 Ceftriaxone Sodium (Rocephin) 50 ml @ 100 mls/hr Q24H IVPB Last administered on 02/16/17 10:10; Admin Dose 100 MLS/HR; Start 02/12/17 at 10:00 Enoxaparin Sodium (Lovenox) 40 mg DAILY SC Last administered on 02/15/17 08: 50; Admin Dose 40 MG; Start 02/12/17 at 17:30 Lactobacillus Acidophilus (Florajen3 Capsule) 1 each TID PO Last administered on 02/15/17 20:55; Admin Dose 1 EACH; Start 02/13/17 at 16:00 Multivitamins Therapeutic (Theragran) 1 tab DAILY PO Last administered on 02/16 10:09; Admin Dose 1 TAB; Start 02/15/17 at 09:00 Assessment/Plan Chief Complaint/Hosp Course 76 yo female w hx of cervical disease planned for cervical fusion surgery, 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 Unable to tolerate repeat contrast MRI of the Thoracic Spine Bone scan no significant findings of metastasis, repeat MRI here no intramedullary lesions LP done shows WBC: 14, Glucose of 51 and Protein: 134 Recommend repeat LP as we do not have a diagnosis at this time send for VZV, cytology resend, cultures CT Abdomen/pelvis unable to obtain w contrast due to iodine allergy will fu Problems: DONAL KAMARA MD Feb 16, 2017 12:07
[2017-02-16 12:34] LABS: INR 0.97; PROTIME 12.9 Sec (12.2-14.2)
[2017-02-16 12:35] LABS: PARTIAL THROMBOPLASTIN TIME 28.6 Sec (25.0-35.0)
[2017-02-16 14:00] VITALS: BP 165/79; RESP 18
--- NOTE | 2017-02-16 14:38 | CONS ---
Date/Time of Note Date/Time of Note DATE: 02/16/17 TIME: 14:35 Assessment/Plan Assessment/Plan Chief Complaint/Hosp Course SUBJECTIVE: No acute changes. Patient is alert, feels good, looks comfortable. Abx: Rocephin PHYSICAL EXAMINATION: GENERAL: Well-developed, elderly woman who is alert, in no distress. HEENT: Head atraumatic, normocephalic. Sclerae anicteric. Buccal mucosa pink. NECK: Supple. CHEST: Rise symmetrical. Breath sounds clear. HEART: S1, S2. ABDOMEN: Soft, bowel sounds present. EXTREMITIES: Without cyanosis or edema. ASSESSMENT: 1. Progressive lower extremity weakness 2. History of cervical cancer diagnosed 7 years ago, status post-surgical intervention and chemoradiation. 3. History of bilateral hydronephrosis with JJ stent placement 3 months ago. 4. History of total abdominal hysterectomy. 5. Positive UA==> urine culture negative PLAN: Clinically stable, continue present care, dc Rocephin, follow neurology recommendations==> pending repeat LP and CT abdomen. DW staff/pt Problems: Consultation Date/Type/Reason Admit Date/Time Feb 07, 2017 at 15:13 Initial Consult Date 02/09/17 Type of Consultation: ID Referring Provider: GRANT PALMA MD Exam/Review of Systems Vital Signs Vitals Vital Signs Date Time Temp Pulse Resp B/P Pulse Ox O2 Delivery O2 Flow Rate FiO2 02/16/17 14:00 98.8 75 18 165/79 94 Intake and Output 02/15/17 02/15/17 02/16/17 15:00 23:00 07:00 Intake Total 50 ml 2800 ml Balance 50 ml 2800 ml Results Result Diagram: 02/16/17 0558 02/16/17 0558 Results 24 hrs Laboratory Tests Test 02/16/17 05:58 02/16/17 11:21 White Blood Count 4.7 L Red Blood Count 3.80 L Hemoglobin 11.6 L Hematocrit 35.0 L Mean Corpuscular Volume 92.1 Mean Corpuscular Hemoglobin 30.5 Mean Corpuscular Hemoglobin Concent 33.1 Red Cell Distribution Width 13.3 Platelet Count 289 Mean Platelet Volume 9.3 Neutrophils % 66.9 Lymphocytes % 18.6 Monocytes % 9.9 Eosinophils % 3.4 Basophils % 0.8 Nucleated Red Blood Cells % 0.0 Neutrophils # 3.2 Lymphocytes # 0.9 Monocytes # 0.5 Eosinophils # 0.2 Basophils # 0.0 Nucleated Red Blood Cells # 0.0 Sodium Level 145 H Potassium Level 4.3 Chloride Level 107 Carbon Dioxide Level 31 Anion Gap 11 Blood Urea Nitrogen 8 Creatinine 0.77 Glucose Level 97 Calcium Level 9.5 Prothrombin Time 12.9 Prothrombin Time Ratio 1.0 INR International Normalized Ratio 0.97 Activated Partial Thromboplast Time 28.6 Medications Medications Current Medications Amlodipine Besylate (Norvasc) 5 mg BID PO Last administered on 02/16/17 10:10 ; Admin Dose 5 MG; Start 02/06/17 at 21:00 Carvedilol (Coreg) 3.125 mg BID PO Last administered on 02/16/17 10:09; Admin Dose 3.125 MG; Start 02/06/17 at 21:00 Ondansetron HCl (Zofran Odt) 4 mg Q4H PRN ODT NAUSEA AND/OR VOMITING Last administered on 02/11/17 18:43; Admin Dose 4 MG; Start 02/06/17 at 19:00 Acetaminophen (Tylenol Tab) 650 mg Q6H PRN PO PAIN LEVEL 1-3 OR FEVER Last administered on 02/16/17 10:10; Admin Dose 650 MG; Start 02/06/17 at 19:00 Acetaminophen/ Hydrocodone Bitart ([place] (5/325)) 1 tab Q6H PRN PO MODERATE PAIN LEVEL 4-6 Last administered on 02/11/17 18:43; Admin Dose 1 TAB; Start 02/06/17 at 19:00 Docusate Sodium (Colace) 100 mg Q12H PRN PO CONSTIPATION Last administered on 02/08/17 20:14; Admin Dose 100 MG; Start 02/06/17 at 19:00 Famotidine (Pepcid) 20 mg Q12 PO Last administered on 02/16/17 10:09; Admin Dose 20 MG; Start 02/06/17 at 21:00 Lactulose (Enulose) 20 gm DAILY PRN PO CONSTIPATION Last administered on 21:56; Admin Dose 20 GM; Start 02/09/17 at 14:30 Magnesium Hydroxide (Milk Of Mag) 30 ml DAILY PRN PO CONSTIPATION Last administered on 02/13/17 15:59; Admin Dose 30 ML; Start 02/09/17 at 14:30 Bisacodyl 10 mg 10 mg DAILY PRN [place] CONSTIPATION Last administered on 23:02; Admin Dose 10 MG; Start 02/09/17 at 14:30 Ceftriaxone Sodium (Rocephin) 50 ml @ 100 mls/hr Q24H IVPB Last administered on 02/16/17 10:10; Admin Dose 100 MLS/HR; Start 02/12/17 at 10:00 Enoxaparin Sodium (Lovenox) 40 mg DAILY SC Last administered on 02/15/17 08: 50; Admin Dose 40 MG; Start 02/12/17 at 17:30 Lactobacillus Acidophilus (Florajen3 Capsule) 1 each TID PO Last administered on 02/15/17 20:55; Admin Dose 1 EACH; Start 02/13/17 at 16:00 Multivitamins Therapeutic (Theragran) 1 tab DAILY PO Last administered on 02/16 10:09; Admin Dose 1 TAB; Start 02/15/17 at 09:00 SLIME NUÑEZ NP Feb 16, 2017 14:38
--- NOTE | 2017-02-16 15:25 | RADRPT ---
PROCEDURE: CT Abdomen and Pelvis without contrast. CLINICAL INDICATION: Abdominal pain , history of ovarian cancer. TECHNIQUE: CT scan of the abdomen and pelvis was performed on a multidetector high-resolution CT s canner without intravenous contrast. Coronal and sagittal reformatted images were obtained from the axial source images. Images were reviewed on a high-resolution PACS workstation. The total exam CTD I equals 5mGy and the total exam DLP equals 250mGy-cm. One or more of the following dose reduction t echniques were used: Automated exposure control, Adjustment of the mA and/or kV according to patient size, and/or use of iterative reconstruction technique. DICOM images are available. COMPARISON: Abdominal CT 05/14/2016 FINDINGS: Evaluation of the solid organs is limited given the lack of intravenous contrast administration. Small right pleural effusion with bibasilar atelectasis. The liver, pancreas, spleen, and adrenals are grossly unremarkable. No focal pericholecystic inflammatory changes. Bilateral ureteral stents are in place. Bladder is markedly distended. There is dilatation of the bi lateral ureters with bilateral renal pelviectasis. Asymmetric advanced left renal atrophy. 4 mm righ t lower renal pole nonobstructing stone is unchanged. There is a new adjacent 3 mm nonobstructing ri ght lower renal pole stone from prior. No bowel obstruction. Appendix not visualized. Uterus is absent. No significant ascites or evidence of pneumoperitoneum. Scattered nonspecific retroperitoneal lymph nodes are unchanged from prior. Aortoiliac atherosclerosis. Lumbar levoscoliosis with advanced degenerative changes. IMPRESSION: Small right pleural effusion. Bladder is markedly distended. Bilateral ureteral stents are in place. Similar appearance of dilatation of the bilateral ureters with bilateral renal pelviectasis when com pared to 05/14/2016. 4 mm right lower renal pole nonobstructing stone is unchanged. There is a new adjacent 3 mm nonobstructing right lower renal pole stone from prior. RPTAT: AA .Angel Deal MD, Date Time Electronically viewed and signed by .Angel Deal MD, MD on 02/16/2017 15:24 .T/
[2017-02-16] MEDS: HYDROCODONE/APAP (5/325) TAB PO PRN (16:13)
[2017-02-16 19:45] VITALS: BP 135/75; RESP 18
[2017-02-17 01:52] VITALS: BP 132/77; RESP 16
[2017-02-17 07:50] VITALS: BP 158/78; RESP 18
[2017-02-17] MEDS: L ACIDOPHIL/B LACTIS/B LONGUM CAPSULE PO SCH ×3 (09:00→20:53)
[2017-02-17] MEDS: ENOXAPARIN 40 MG/0.4 ML SYG SC SCH (09:00)
--- NOTE | 2017-02-17 09:39 | PN ---
Date/Time of Note Date/Time of Note DATE: 02/17/17 TIME: 09:33 Assessment/Plan VTE Prophylaxis VTE Prophylaxis Intervention: SCD's (Lovenox on hold) Lines/Catheters IV Catheter Type (from [facility]): Saline Lock Urinary Cath still in place: No Assessment/Plan Assessment/Plan 76 yo woman with: 1. Progressive weakness and lower extremity numbness extending up to her torso. Appreciate additional recommendations from infectious disease and neurology, no infectious etiology found yet for the abnormal leukocytosis and elevated protein in the CSF last week, West Nile virus has been ruled out, additional HSV and VZV serologies are pending. Per neurology and infectious disease, repeating lumbar puncture today with flow cytometry. Also serologies for multiple sclerosis are pending. CAT scan of the abdomen and pelvis without IV contrast with no acute findings. Per neurosurgery request, MRI thoracic spine without contrast to be repeated today. Patient remains stable 2. Hypertension: Continue Norvasc and carvedilol. 3. History of cervical cancer diagnosed 7 years ago, treated with surgery, chemotherapy and radiation, also has residual bilateral hydronephrosis and has been getting serial ureteric stent replacement (most recently 3 months ago). Normal renal function currently. 4. ? Urinary tract infection, urine culture 02/13 no growth to date. Appreciate ID recommendations, Rocephin discontinued. CAT scan of the abdomen and pelvis showing patent stents bilateral ureteral. Prophylaxis: SCDs for DVT prevention, Pepcid for GI prophylaxis Disposition: Appreciate neurology and infectious disease recommendations, ongoing workup of current neurological deficits. Attempting to rule out viral encephalitis/myelitis versus noninfectious/inflammatory or metastatic process. Subjective 24 Hr Interval Summary Free Text/Dictation Patient remained stable, appreciate infectious disease recommendation, Rocephin has been discontinued. CAT scan of the abdomen and pelvis does not show any acute changes, lumbar puncture being planned for this morning according to IR, also per discussion with Dr. Connors this morning he is requesting an MRI of the thoracic spine without contrast and likely to schedule for cervical spine procedure if all studies are still nonconclusive. Exam/Review of Systems Vital Signs Vitals Vital Signs Date Time Temp Pulse Resp B/P Pulse Ox O2 Delivery O2 Flow Rate FiO2 02/17/17 07:50 98.0 66 18 158/78 96 Intake and Output 02/16/17 02/16/17 02/17/17 15:00 23:00 07:00 Intake Total 2100 ml 240 ml Output Total 3 ml Balance 2097 ml 240 ml Exam Constitutional: alert, oriented, well developed Respiratory: clear to auscultation, normal air movement Cardiovascular: nl pulses, regular rate and rhythm Gastrointestinal: non-tender, soft Musculoskeletal: nl extremities to inspection, nl gait and stance Extremities: normal pulses Neurological: [employer] II-XII intact, nl mental status, nl speech, other (Right foot drop, subtle weakness right lower extremity worse than left lower extremity ) Results Result Diagram: 02/16/1758 02/16/17 0558 Results 24 hrs Laboratory Tests Test 02/16/17 11:21 Prothrombin Time 12.9 Prothrombin Time Ratio 1.0 INR International Normalized Ratio 0.97 Activated Partial Thromboplast Time 28.6 Medications Medications Current Medications Amlodipine Besylate (Norvasc) 5 mg BID PO Last administered on 02/16/17 20:38 ; Admin Dose 5 MG; Start 02/06/17 at 21:00 Carvedilol (Coreg) 3.125 mg BID PO Last administered on 02/16/17 20:38; Admin Dose 3.125 MG; Start 02/06/17 at 21:00 Ondansetron HCl (Zofran Odt) 4 mg Q4H PRN ODT NAUSEA AND/OR VOMITING Last administered on 02/11/17 18:43; Admin Dose 4 MG; Start 02/06/17 at 19:00 Acetaminophen (Tylenol Tab) 650 mg Q6H PRN PO PAIN LEVEL 1-3 OR FEVER Last administered on 02/16/17 20:40; Admin Dose 650 MG; Start 02/06/17 at 19:00 Acetaminophen/ Hydrocodone Bitart ([place] (5/325)) 1 tab Q6H PRN PO MODERATE PAIN LEVEL 4-6 Last administered on 02/16/17 16:13; Admin Dose 1 TAB; Start 02/06/17 at 19:00 Docusate Sodium (Colace) 100 mg Q12H PRN PO CONSTIPATION Last administered on 02/08/17 20:14; Admin Dose 100 MG; Start 02/06/17 at 19:00 Famotidine (Pepcid) 20 mg Q12 PO Last administered on 02/16/17 20:38; Admin Dose 20 MG; Start 02/06/17 at 21:00 Lactulose (Enulose) 20 gm DAILY PRN PO CONSTIPATION Last administered on 21:56; Admin Dose 20 GM; Start 02/09/17 at 14:30 Magnesium Hydroxide (Milk Of Mag) 30 ml DAILY PRN PO CONSTIPATION Last administered on 02/13/17 15:59; Admin Dose 30 ML; Start 02/09/17 at 14:30 Bisacodyl (Dulcolax Supp) 10 mg DAILY PRN [place] CONSTIPATION Last administered on 02/15/17 23:02; Admin Dose 10 MG; Start 02/09/17 at 14:30 Enoxaparin Sodium (Lovenox) 40 mg DAILY SC Last administered on 02/15/17 08: 50; Admin Dose 40 MG; Start 02/12/17 at 17:30 Lactobacillus Acidophilus (Florajen3 Capsule) 1 each TID PO Last administered on 02/16/17 20:37; Admin Dose 1 EACH; Start 02/13/17 at 16:00 Multivitamins Therapeutic (Theragran) 1 tab DAILY PO Last administered on 02/16 10:09; Admin Dose 1 TAB; Start 02/15/17 at 09:00 Procedures Procedures PROCEDURE: CT Abdomen and Pelvis without contrast. CLINICAL INDICATION: Abdominal pain , history of ovarian cancer. TECHNIQUE: CT scan of the abdomen and pelvis was performed on a multidetector high-resolution CT scanner without intravenous contrast. Coronal and sagittal reformatted images were obtained from the axial source images. Images were reviewed on a high-resolution PACS workstation. The total exam CTDI equals 5mGy and the total exam DLP equals 250mGy-cm. One or more of the following dose reduction techniques were used: Automated exposure control, Adjustment of the mA and/or kV according to patient size, and/or use of iterative reconstruction technique. DICOM images are available. COMPARISON: Abdominal CT 05/14/2016 FINDINGS: Evaluation of the solid organs is limited given the lack of intravenous contrast administration. Small right pleural effusion with bibasilar atelectasis. The liver, pancreas, spleen, and adrenals are grossly unremarkable. No focal pericholecystic inflammatory changes. Bilateral ureteral stents are in place. Bladder is markedly distended. There is dilatation of the bilateral ureters with bilateral renal pelviectasis. Asymmetric advanced left renal atrophy. 4 mm right lower renal pole nonobstructing stone is unchanged. There is a new adjacent 3 mm nonobstructing right lower renal pole stone from prior. No bowel obstruction. Appendix not visualized. Uterus is absent. No significant ascites or evidence of pneumoperitoneum. Scattered nonspecific retroperitoneal lymph nodes are unchanged from prior. Aortoiliac atherosclerosis. Lumbar levoscoliosis with advanced degenerative changes. IMPRESSION: Small right pleural effusion. Bladder is markedly distended. Bilateral ureteral stents are in place. Similar appearance of dilatation of the bilateral ureters with bilateral renal pelviectasis when compared to 05/14/2016. 4 mm right lower renal pole nonobstructing stone is unchanged. There is a new adjacent 3 mm nonobstructing right lower renal pole stone from prior. RPTAT: AA .Angel Deal MD, Date Time Electronically viewed and signed by .Angel Deal MD, on 02/16/2017 15:24 HALIMA CAMPBELL Feb 17, 2017 09:39
[2017-02-17] MEDS: MULTIVITAMINS THERAPEUTIC TAB PO SCH (09:58)
[2017-02-17] MEDS: AMLODIPINE 5 MG TAB PO SCH ×2 (09:59→20:53)
[2017-02-17] MEDS: FAMOTIDINE 20 MG TAB PO SCH ×2 (09:59→20:52)
[2017-02-17 12:15] VITALS: BP 133/75; PULSE 70; RESP 18
[2017-02-17] MEDS: ACETAMINOPHEN 325 MG TAB PO PRN ×2 (12:58→20:54)
[2017-02-17 14:12] VITALS: BP 141/67; RESP 18
--- NOTE | 2017-02-17 14:18 | CONS ---
Date/Time of Note Date/Time of Note DATE: 02/17/17 TIME: 14:17 Assessment/Plan Assessment/Plan Chief Complaint/Hosp Course SUBJECTIVE: No acute changes. Patient is alert, feels good, looks comfortable. PHYSICAL EXAMINATION: GENERAL: Well-developed, elderly woman who is alert, in no distress. HEENT: Head atraumatic, normocephalic. Sclerae anicteric. Buccal mucosa pink. NECK: Supple. CHEST: Rise symmetrical. Breath sounds clear. HEART: S1, S2. ABDOMEN: Soft, bowel sounds present. EXTREMITIES: Without cyanosis or edema. ASSESSMENT: 1. Progressive lower extremity weakness 2. History of cervical cancer diagnosed 7 years ago, status post-surgical intervention and chemoradiation. 3. History of bilateral hydronephrosis with JJ stent placement 3 months ago. 4. History of total abdominal hysterectomy. 5. Positive UA==> urine culture negative PLAN: Clinically stable, off abx, continue present care, follow recommendations of consultants ==> pending thoracic spine MRI DW staff/pt Problems: Consultation Date/Type/Reason Admit Date/Time Feb 07, 2017 at 15:13 Initial Consult Date 02/09/17 Type of Consultation: ID Referring Provider: GRANT PALMA MD Exam/Review of Systems Vital Signs Vitals Vital Signs Date Time Temp Pulse Resp B/P Pulse Ox O2 Delivery O2 Flow Rate FiO2 02/17/17 14:12 97.8 73 18 141/67 97 02/17/17 12:15 Room Air Intake and Output 02/16/17 02/16/17 02/17/17 15:00 23:00 07:00 Intake Total 2100 ml 240 ml Output Total 3 ml Balance 2097 ml 240 ml Results Result Diagram: 02/16/17 0558 02/16/17 0558 Medications Medications Current Medications Amlodipine Besylate (Norvasc) 5 mg BID PO Last administered on 02/17/17 09:59 ; Admin Dose 5 MG; Start 02/06/17 at 21:00 Carvedilol (Coreg) 3.125 mg BID PO Last administered on 02/17/17 10:00; Admin Dose 3.125 MG; Start 02/06/17 at 21:00 Ondansetron HCl (Zofran Odt) 4 mg Q4H PRN ODT NAUSEA AND/OR VOMITING Last administered on 02/11/17 18:43; Admin Dose 4 MG; Start 02/06/17 at 19:00 Acetaminophen (Tylenol Tab) 650 mg Q6H PRN PO PAIN LEVEL 1-3 OR FEVER Last administered on 02/17/17 12:58; Admin Dose 650 MG; Start 02/06/17 at 19:00 Acetaminophen/ Hydrocodone Bitart ([place] (5/325)) 1 tab Q6H PRN PO MODERATE PAIN LEVEL 4-6 Last administered on 02/16/17 16:13; Admin Dose 1 TAB; Start 02/06/17 at 19:00 Docusate Sodium (Colace) 100 mg Q12H PRN PO CONSTIPATION Last administered on 02/08/17 20:14; Admin Dose 100 MG; Start 02/06/17 at 19:00 Famotidine (Pepcid) 20 mg Q12 PO Last administered on 02/17/17 09:59; Admin Dose 20 MG; Start 02/06/17 at 21:00 Lactulose (Enulose) 20 gm DAILY PRN PO CONSTIPATION Last administered on 21:56; Admin Dose 20 GM; Start 02/09/17 at 14:30 Magnesium Hydroxide (Milk Of Mag) 30 ml DAILY PRN PO CONSTIPATION Last administered on 02/13/17 15:59; Admin Dose 30 ML; Start 02/09/17 at 14:30 Bisacodyl (Dulcolax Supp) 10 mg DAILY PRN [place] CONSTIPATION Last administered on 02/15/17 23:02; Admin Dose 10 MG; Start 02/09/17 at 14:30 Enoxaparin Sodium (Lovenox) 40 mg DAILY SC Last administered on 02/15/17 08: 50; Admin Dose 40 MG; Start 02/12/17 at 17:30 Lactobacillus Acidophilus (Florajen3 Capsule) 1 each TID PO Last administered on 02/17/17 12:58; Admin Dose 1 EACH; Start 02/13/17 at 16:00 Multivitamins Therapeutic (Theragran) 1 tab DAILY PO Last administered on 02/17 09:58; Admin Dose 1 TAB; Start 02/15/17 at 09:00 SLIME NUÑEZ NP Feb 17, 2017 14:18
--- NOTE | 2017-02-17 16:04 | RADRPT ---
PROCEDURE: MRI Thoracic spine without contrast CLINICAL INDICATION: BACK PAIN TECHNIQUE: An MRI of the thoracic spine was performed on a high resolution MRI scanner utilizing t he following sequences: Sagittal and axial T1 weighted, sagittal and axial T2 weighted, and sagitta l T2 weighted with fat saturation . COMPARISON: Thoracic spine MR 02/07/2017 FINDINGS: Partially imaged cervical spine degenerative changes with cord compression and severe spinal canal s tenosis C3-4, C5-6 and C7-T1. Moderate to severe spinal canal narrowing C6-7. Cord edema is evident at C7-T1. No acute thoracic vertebral compression fracture. No diffuse marrow replacing process. Multilevel thoracic disc space narrowing with anterior osteophytes identified. Minimal disc osteophytes T11-12 with mild central canal stenosis. The thoracic cord demonstrates normal contour and signal intensity. Prevertebral and paraspinal soft tissues are unremarkable. IMPRESSION: No significant change identified since 02/07/2017 No acute thoracic compression fracture or thoracic cord edema. Multilevel thoracic degenerative spondylosis with mild thoracic spinal canal narrowing T11-12. Partially imaged cervical spine degenerative changes with cord compression and severe spinal canal s tenosis C3-4, C5-6 and C7-T1. Moderate to severe spinal canal narrowing C6-7. Cord edema is evident at C7-T1. RPTAT: AA .Angel Deal MD, Date Time Electronically viewed and signed by .Angel Deal MD, MD on 02/17/2017 14:02 .T/
[2017-02-17 19:38] VITALS: BP 155/85; RESP 18
[2017-02-17] MEDS: LACTULOSE 30ML CUP PO PRN (20:51)
[2017-02-18 02:25] VITALS: BP 129/78; RESP 20
[2017-02-18] MEDS: ACETAMINOPHEN 325 MG TAB PO PRN ×2 (06:02→17:58)
[2017-02-18 07:43] VITALS: BP 144/81; PULSE 65; RESP 18
[2017-02-18] MEDS: AMLODIPINE 5 MG TAB PO SCH (08:41)
[2017-02-18] MEDS: FAMOTIDINE 20 MG TAB PO SCH (08:41)
[2017-02-18] MEDS: MULTIVITAMINS THERAPEUTIC TAB PO SCH (08:41)
[2017-02-18] MEDS: L ACIDOPHIL/B LACTIS/B LONGUM CAPSULE PO SCH ×2 (08:41→13:13)
[2017-02-18] MEDS: ENOXAPARIN 40 MG/0.4 ML SYG SC SCH (08:47)
--- NOTE | 2017-02-18 11:08 | PN ---
Date/Time of Note Date/Time of Note DATE: 02/18/17 TIME: 11:06 Assessment/Plan VTE Prophylaxis VTE Prophylaxis Intervention: LMWH Lines/Catheters IV [facility]from [facility] Saline Lock Urinary Cath still in place: No Assessment/Plan Assessment/Plan 76 yo woman with: 1. Progressive weakness and lower extremity numbness extending up to her torso. Appreciate additional recommendations from infectious disease and neurology, no infectious etiology found yet for the abnormal leukocytosis and elevated protein in the CSF last week, West Nile virus has been ruled out, additional HSV and VZV serologies negative Repeating lumbar puncture done yesterday but unfortunately CSF samples were clotted therefore nothing could be run but flow cytometry by cytology which is negative for malignant cells. Repeat MRI thoracic spine without contrast with no acute findings except for previous cervical spine stenosis redemonstrated again. After discussion with neurosurgery and neurology, plan for discharge to rehabilitation facility, acute rehab versus shelter facility as patient needs urgent EMG study done and this can only be be done as an outpatient. I am working full with the patient IPA currently to have it done within the next 24 hours if possible. Depending on the results if patient does show signs of demyelinating polyneuropathy she will likely need a course of IVIG and will have to be admitted for that, if he does not show any demyelinating process she may need to be scheduled for cervical spine surgery with neurosurgery. Both can be done here at [facility]. Patient remains stable 2. Hypertension: Continue Norvasc and carvedilol. 3. History of cervical cancer diagnosed 7 years ago, treated with surgery, chemotherapy and radiation, also has residual bilateral hydronephrosis and has been getting serial ureteric stent replacement (most recently 3 months ago). Normal renal function currently. Prophylaxis: SCDs for DVT prevention, Pepcid for GI prophylaxis Disposition: Appreciate neurology and neurosurgery input, working on possible discharge planning today an outpatient EMG within 24 hours. Subjective 24 Hr Interval Summary Free Text/Dictation Patient had a lumbar puncture yesterday, unfortunately the CSF samples were clotted therefore only cytology was run, negative for malignant cells. She remains hemodynamically stable, laboratory data within normal. At this point after discussion with neurology and neurosurgery, decision is made to get urgent EMG done as an outpatient as soon as possible for further diagnosis and evaluation for possible demyelinating polyneuropathy. Depending on the EMG results further treatment decision will be made, if EMG is negative patient may need cervical spine intervention from neurosurgery. Exam/Review of Systems Vital Signs Vitals Vital Signs Date Time Temp Pulse Resp B/P Pulse Ox O2 Delivery O2 Flow Rate FiO2 02/18/17 07:43 97.7 65 18 144/81 96 Room Air Intake and Output 02/17/17 02/17/17 02/18/17 15:00 23:00 07:00 Intake Total 500 ml Balance 500 ml Exam Constitutional: alert, oriented, well developed Respiratory: clear to auscultation, normal air movement Cardiovascular: nl pulses, regular rate and rhythm Gastrointestinal: non-tender, soft Musculoskeletal: nl extremities to inspection, nl gait and stance Extremities: normal pulses, other (No edema, clubbing or cyanosis) Neurological: [employer] II-XII intact, nl mental status, nl speech, other (Mild lower extremity weakness, mainly sensory deficits, right foot drop.) Results Result Diagram: 02/16/1758 02/16/1758 Medications Medications Current Medications Amlodipine Besylate (Norvasc) 5 mg BID PO Last administered on 02/18/17 08:41 ; Admin Dose 5 MG; Start 02/06/17 at 21:00 Carvedilol (Coreg) 3.125 mg BID PO Last administered on 02/18/17 08:42; Admin Dose 3.125 MG; Start 02/06/17 at 21:00 Ondansetron HCl (Zofran Odt) 4 mg Q4H PRN ODT NAUSEA AND/OR VOMITING Last administered on 02/11/17 18:43; Admin Dose 4 MG; Start 02/06/17 at 19:00 Acetaminophen (Tylenol Tab) 650 mg Q6H PRN PO PAIN LEVEL 1-3 OR FEVER Last administered on 02/18/17 06:02; Admin Dose 650 MG; Start 02/06/17 at 19:00 Acetaminophen/ Hydrocodone Bitart ([place] (5/325)) 1 tab Q6H PRN PO MODERATE PAIN LEVEL 4-6 Last administered on 02/16/17 16:13; Admin Dose 1 TAB; Start 02/06/17 at 19:00 Docusate Sodium (Colace) 100 mg Q12H PRN PO CONSTIPATION Last administered on 02/08/17 20:14; Admin Dose 100 MG; Start 02/06/17 at 19:00 Famotidine (Pepcid) 20 mg Q12 PO Last administered on 02/18/17 08:41; Admin Dose 20 MG; Start 02/06/17 at 21:00 Lactulose (Enulose) 20 gm DAILY PRN PO CONSTIPATION Last administered on 20:51; Admin Dose 20 GM; Start 02/09/17 at 14:30 Magnesium Hydroxide (Milk Of Mag) 30 ml DAILY PRN PO CONSTIPATION Last administered on 02/13/17 15:59; Admin Dose 30 ML; Start 02/09/17 at 14:30 Bisacodyl (Dulcolax Supp) 10 mg DAILY PRN [place] CONSTIPATION Last administered on 02/15/17 23:02; Admin Dose 10 MG; Start 02/09/17 at 14:30 Enoxaparin Sodium (Lovenox) 40 mg DAILY SC Last administered on 02/18/17 08: 47; Admin Dose 40 MG; Start 02/12/17 at 17:30 Lactobacillus Acidophilus (Florajen3 Capsule) 1 each TID PO Last administered on 02/18/17 08:41; Admin Dose 1 EACH; Start 02/13/17 at 16:00 Multivitamins Therapeutic (Theragran) 1 tab DAILY PO Last administered on 02/18 08:41; Admin Dose 1 TAB; Start 02/15/17 at 09:00 HALIMA CAMPBELL Feb 18, 2017 11:08
--- NOTE | 2017-02-18 11:38 | CONS ---
Date/Time of Note Date/Time of Note DATE: 02/18/17 TIME: 11:24 Consult Date/Type/Reason Admit Date/Time Feb 07, 2017 at 15:13 Initial Consult Date 02/09/17 Type of Consultation: Neurology Reason for Consultation numbness/weakness T5 sensory level Ordering Provider: GRANT PALMA MD Subjective remains stable Objective Vital Signs Date Time Temp Pulse Resp B/P Pulse Ox O2 Delivery O2 Flow Rate FiO2 02/18/17 07:43 97.7 65 18 144/81 96 Room Air Intake and Output 02/17/17 02/17/17 02/18/17 14:59 22:59 06:59 Intake Total 500 ml Balance 500 ml Exam awake alert oriented x3 no aphasia follows all commands CN: II-XII intact Motor: UE strength mild weakness 5-/5 Right elbow flexion and extension Left 5/5 LE 5/5 proximal muscle groups mild weakness dorsiflexion plantar flexion 5-/5 on RLE compared to Left inversion and eversion are intact Sensory decreased PP sensation at T5 level decreased to all modalities sensory checked anterior and posterior T5 level at both Reflexes 2+ UE, KJ 1+ AJ absent toes are downgoing Results/Medications Result Diagram: 02/16/17 0558 02/16/17 0558 Medications Current Medications Amlodipine Besylate (Norvasc) 5 mg BID PO Last administered on 02/18/17 08:41 ; Admin Dose 5 MG; Start 02/06/17 at 21:00 Carvedilol (Coreg) 3.125 mg BID PO Last administered on 02/18/17 08:42; Admin Dose 3.125 MG; Start 02/06/17 at 21:00 Ondansetron HCl (Zofran Odt) 4 mg Q4H PRN ODT NAUSEA AND/OR VOMITING Last administered on 02/11/17 18:43; Admin Dose 4 MG; Start 02/06/17 at 19:00 Acetaminophen (Tylenol Tab) 650 mg Q6H PRN PO PAIN LEVEL 1-3 OR FEVER Last administered on 02/18/17 06:02; Admin Dose 650 MG; Start 02/06/17 at 19:00 Acetaminophen/ Hydrocodone Bitart ([place] (5/325)) 1 tab Q6H PRN PO MODERATE PAIN LEVEL 4-6 Last administered on 02/16/17 16:13; Admin Dose 1 TAB; Start 02/06/17 at 19:00 Docusate Sodium (Colace) 100 mg Q12H PRN PO CONSTIPATION Last administered on 02/08/17 20:14; Admin Dose 100 MG; Start 02/06/17 at 19:00 Famotidine (Pepcid) 20 mg Q12 PO Last administered on 02/18/17 08:41; Admin Dose 20 MG; Start 02/06/17 at 21:00 Lactulose (Enulose) 20 gm DAILY PRN PO CONSTIPATION Last administered on 20:51; Admin Dose 20 GM; Start 02/09/17 at 14:30 Magnesium Hydroxide (Milk Of Mag) 30 ml DAILY PRN PO CONSTIPATION Last administered on 02/13/17 15:59; Admin Dose 30 ML; Start 02/09/17 at 14:30 Bisacodyl (Dulcolax Supp) 10 mg DAILY PRN [place] CONSTIPATION Last administered on 02/15/17 23:02; Admin Dose 10 MG; Start 02/09/17 at 14:30 Enoxaparin Sodium (Lovenox) 40 mg DAILY SC Last administered on 02/18/17 08: 47; Admin Dose 40 MG; Start 02/12/17 at 17:30 Lactobacillus Acidophilus (Florajen3 Capsule) 1 each TID PO Last administered on 02/18/17 08:41; Admin Dose 1 EACH; Start 02/13/17 at 16:00 Multivitamins Therapeutic (Theragran) 1 tab DAILY PO Last administered on 02/18 08:41; Admin Dose 1 TAB; Start 02/15/17 at 09:00 Assessment/Plan Chief Complaint/Hosp Course 76 yo female w hx of cervical disease planned for cervical fusion surgery, 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 LP done shows WBC: 14, Glucose of 51 and Protein: 134 Repeat MRI T Spine: No significant change identified since 02/07/2017 Multilevel thoracic degenerative spondylosis with mild thoracic spinal canal narrowing T11-12. Partially imaged cervical spine degenerative changes with cord compression and severe spinal canal stenosis C3-4, C5-6 and C7-T1. Moderate to severe spinal canal narrowing C6-7. CT Abdomen/pelvis no underlying masses A repeat LP was attempted yesterday, unfortunately the specimen was clotted. Only Cytology could be sent. 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 Unfortunately there is no one available in house to perform EMG/NCV. Suggest transfer to Acute Rehab and planning to fu with Dr. Jarquin for EMG and then she will fu with Dr. Palma to further discuss plan for surgery. Discussed w Dr. Palma, I feel it is more appropriate to get electrodiagnostic testing and fu cytology results before planning any surgical intervention. Discussed also with patient and she is agreeable to this plan. Problems: DONAL KAMARA MD Feb 18, 2017 11:38
--- NOTE | 2017-02-18 12:38 | PDOCDIS ---
Discharge Instructions CONDITION Patient Condition: Stable HOME CARE INSTRUCTIONS: Special Diet: Vegetarian ACTIVITY: Activity Restrictions: Slowly Increase Activity FOLLOW UP/APPOINTMENTS Follow-up Plan [facility] has arranged for urgent outpatient EMG of all 4 limbs ( bilateral Lower and upper extremities) to evaluate for demyelinating polyneuropathy Patient has an appointment with Dr. John tomorrow, 02/19 at 12 PM, she is to be transported from [facility] facility to the neurologist and back to [facility] facility. Results will be discussed with Neurosurgery, Dr Connors, and Neurology, Dr Oro for further treatment plan. HALIMA CAMPBELL Feb 18, 2017 12:38
[2017-02-18] MEDS: DOCUSATE SODIUM 100 MG CAP PO PRN (13:13)
[2017-02-18] MEDS: MAGNESIUM HYDROXIDE 30ML CUP PO PRN (13:13)
[2017-02-18 13:22] VITALS: BP 133/76; PULSE 75; RESP 18
--- NOTE | 2017-02-18 13:22 | RADRPT ---
PROCEDURE: Fluoroscopic guided lumbar puncture. CLINICAL INDICATION: History of neoplasm and focal sensory deficit. TECHNIQUE: Prior to the procedure, informed consent was obtained. Risks including bleeding and in fection were explained to the patient. The patient understood and was willing to proceed. A proced ural pause was performed. The patient's name, date of , and procedure to be performed were nitish ified. Using local anesthetic, sterile technique, and fluoroscopic guidance, a 22-gauge spinal needle was a dvanced into the thecal sac at the L5-S1 level. Only a 1 ml of partially bloody fluid could be obta ined and sent for laboratory analysis. The needle was removed. A dressing was applied. The patien t tolerated the procedure well. A total of 0.3 minutes of fluoroscopy time was used. 3 images were obtained with image intensifier. COMPARISON: Lumbar puncture dated 02/10/2017. FINDINGS: Images demonstrate the needle at the L5-S1 level in the thecal sac. IMPRESSION: Fluoroscopic guided lumbar puncture with only 1 ml of partially bloody fluid able to be aspirated. RPTAT: QQ .Bean Forrester MD, Date Time Electronically viewed and signed by .Bean Forrester MD, on 02/18/2017 13:22 .R/
--- NOTE | 2017-02-18 14:32 | CONS ---
Date/Time of Note Date/Time of Note DATE: 02/18/17 TIME: 14:31 Assessment/Plan Assessment/Plan Chief Complaint/Hosp Course SUBJECTIVE: No acute changes. Patient is alert, feels good, looks comfortable. PHYSICAL EXAMINATION: GENERAL: Well-developed, elderly woman who is alert, in no distress. HEENT: Head atraumatic, normocephalic. Sclerae anicteric. Buccal mucosa pink. NECK: Supple. CHEST: Rise symmetrical. Breath sounds clear. HEART: S1, S2. ABDOMEN: Soft, bowel sounds present. EXTREMITIES: Without cyanosis or edema. ASSESSMENT: 1. Progressive lower extremity weakness 2. History of cervical cancer diagnosed 7 years ago, status post-surgical intervention and chemoradiation. 3. History of bilateral hydronephrosis with JJ stent placement 3 months ago. 4. History of total abdominal hysterectomy. 5. Positive UA==> urine culture negative PLAN: Stable, continue present care, report if thoracic spine MRI noted, pending dc staff/pt Problems: Consultation Date/Type/Reason Admit Date/Time Feb 07, 2017 at 15:13 Initial Consult Date 02/09/17 Type of Consultation: id Referring Provider: GRANT PALMA MD Exam/Review of Systems Vital Signs Vitals Vital Signs Date Time Temp Pulse Resp B/P Pulse Ox O2 Delivery O2 Flow Rate FiO2 02/18/17 13:22 97.9 75 18 133/76 95 Room Air Intake and Output 02/17/17 02/17/17 02/18/17 14:59 22:59 06:59 Intake Total 500 ml Balance 500 ml Results Result Diagram: 02/16/17 0558 02/16/17 0558 Medications Medications Current Medications Amlodipine Besylate (Norvasc) 5 mg BID PO Last administered on 02/18/17 08:41 ; Admin Dose 5 MG; Start 02/06/17 at 21:00 Carvedilol (Coreg) 3.125 mg BID PO Last administered on 02/18/17 08:42; Admin Dose 3.125 MG; Start 02/06/17 at 21:00 Ondansetron HCl (Zofran Odt) 4 mg Q4H PRN ODT NAUSEA AND/OR VOMITING Last administered on 02/11/17 18:43; Admin Dose 4 MG; Start 02/06/17 at 19:00 Acetaminophen (Tylenol Tab) 650 mg Q6H PRN PO PAIN LEVEL 1-3 OR FEVER Last administered on 02/18/17 06:02; Admin Dose 650 MG; Start 02/06/17 at 19:00 Acetaminophen/ Hydrocodone Bitart ([place] (5/325)) 1 tab Q6H PRN PO MODERATE PAIN LEVEL 4-6 Last administered on 02/16/17 16:13; Admin Dose 1 TAB; Start 02/06/17 at 19:00 Docusate Sodium (Colace) 100 mg Q12H PRN PO CONSTIPATION Last administered on 02/18/17 13:13; Admin Dose 100 MG; Start 02/06/17 at 19:00 Famotidine (Pepcid) 20 mg Q12 PO Last administered on 02/18/17 08:41; Admin Dose 20 MG; Start 02/06/17 at 21:00 Lactulose (Enulose) 20 gm DAILY PRN PO CONSTIPATION Last administered on 20:51; Admin Dose 20 GM; Start 02/09/17 at 14:30 Magnesium Hydroxide (Milk Of Mag) 30 ml DAILY PRN PO CONSTIPATION Last administered on 02/18/17 13:13; Admin Dose 30 ML; Start 02/09/17 at 14:30 Bisacodyl (Dulcolax Supp) 10 mg DAILY PRN NC CONSTIPATION Last administered on 02/15/17 23:02; Admin Dose 10 MG; Start 02/09/17 at 14:30 Enoxaparin Sodium (Lovenox) 40 mg DAILY SC Last administered on 02/18/17 08: 47; Admin Dose 40 MG; Start 02/12/17 at 17:30 Lactobacillus Acidophilus (Florajen3 Capsule) 1 each TID PO Last administered on 02/18/17 13:13; Admin Dose 1 EACH; Start 02/13/17 at 16:00 Multivitamins Therapeutic (Theragran) 1 tab DAILY PO Last administered on 02/18 08:41; Admin Dose 1 TAB; Start 02/15/17 at 09:00 SLIME NUÑEZ NP Feb 18, 2017 14:32
== END 2017-02-18 18:25 | DRG 947 ==
LOC: E/R 15:08 → MS2 18:52 → OBSVTOIN 02-07 15:13
PROVIDERS: ADMIT Internal Medicine; ATTEND Internal Medicine
PROC: 009U3ZX Drainage of Spinal Canal, Percutaneous Approach, Diagnostic (ICD-10-PCS; principal; 2017-02-10)
PROC: B01B1ZZ Fluoroscopy of Spinal Cord using Low Osmolar Contrast (ICD-10-PCS; 2017-02-10)
PROC: 009U3ZX Drainage of Spinal Canal, Percutaneous Approach, Diagnostic (ICD-10-PCS; 2017-02-17)
PROC: B01B1ZZ Fluoroscopy of Spinal Cord using Low Osmolar Contrast (ICD-10-PCS; 2017-02-17)
DX: R53.1 Weakness (principal); G04.89 Other myelitis; M48.02 Spinal stenosis, cervical region; G95.29 Other cord compression; N39.0 Urinary tract infection, site not specified; M48.04 Spinal stenosis, thoracic region; I10 Essential (primary) hypertension; E87.6 Hypokalemia; Z85.41 Personal history of malignant neoplasm of cervix uteri; R26.9 Unspecified abnormalities of gait and mobility; Z85.43 Personal history of malignant neoplasm of ovary; Z96.0 Presence of urogenital implants; R20.2 Paresthesia of skin; M21.371 Foot drop, right foot; M48.07 Spinal stenosis, lumbosacral region
CPT/HCPCS: 36415; 70450; 71010; 72141; 72146; 72148; 74176; 78306; 80048; 80053; 81001; 82040; 82042; 82607; 82784; 82945; 83735; 83873; 83916; 84100; 84157; 84443; 85025; 85610; 85651; 85730; 86140; 86300; 86301; 86304; 86592; 86788; 86789; 86900; 86901; 87081; 87086; 87529; 88104; 88305; 89051; 90686; 93005; 97110; 97161; 97530; 99217; A9503; G0378; J0696; J1650; J3475; J7042

== ENCOUNTER 2017-05-14 06:47 | Emergency (ER) | END 2017-05-14 11:33 | disposition home or self-care (01) ==

== ENCOUNTER 2017-05-26 05:24 | Inpatient (IN) | END 2017-05-31 20:05 | DRG 460 ==

== ENCOUNTER 2018-04-16 07:30 | Inpatient (IN) | payer OTHER ==
[~2018-04-16] VITALS: Ht 162.6 cm; Wt 48.1 kg
[~2018-04-16 07:30] MED LIST changes: +CARV3.12 PO; -CARV3.1260 PO; +HYDR-4011 PO; -ONDA4TAB14 PO
[2018-05-07] VITALS (34 sets, daily range): BP systolic 110–174; BP diastolic 54–97; PULSE 70–96; RESP 4–24; Ht 162.6 cm; Wt 48.1 kg
--- NOTE | 2018-05-07 06:00 | NUR ---
Admit patient from home ambulated w/ rolling walker alone, able to walk by herself AAOX4 , NO SOB, Vss, skin intact, placed IV on left FA, denies pain skin intact & patent, able to void prior to surgery via restroom, had s sip of water this morning w/ her medications pills. Change to hospital gown & perp done.
[2018-05-07] MEDS ORDERED: BUPIVACAINE 0.5%/EPI (SDV) 30 ML INJ ONE ×2 (06:46→08:47)
[2018-05-07] MEDS ORDERED: PROPOFOL 100 ML ONE (06:47)
[2018-05-07] MEDS ORDERED: LIDOCAINE 0.5% (MDV) 50 ML INJ ONE (06:47)
[2018-05-07] MEDS ORDERED: MIDAZOLAM 1 MG/ML 2 ML INJ ONE (06:47)
[2018-05-07] MEDS ORDERED: POLYMYXIN/BACITRACIN 1L IRRIG ONE (06:47)
[2018-05-07] MEDS ORDERED: FENTAnyl 50 MCG/ML VIAL ONE ×3 (06:47→09:57)
[2018-05-07] MEDS ORDERED: THROMBIN (BOVINE) 5,000 UNIT VIAL TP ONE (06:48)
[2018-05-07] MEDS ORDERED: GELATIN SIZE 100 SPONGE ONE (06:48)
[2018-05-07] MEDS ORDERED: BUPIVACAINE 0.5% (SDV) 30 ML INJ ONE (06:52)
[2018-05-07] MEDS ORDERED: CEFAZOLIN 1 GM INJ ONE (07:00)
[2018-05-07] MEDS ORDERED: SUCCINYLCHOLINE CHLORIDE 100 MG/5 ML SYG IV ONE (07:00)
[2018-05-07] MEDS ORDERED: SEVOFLURANE 15 MIN ONE (07:00)
[2018-05-07] MEDS ORDERED: LIDOCAINE 0.5%/EPI (MDV) 50 ML INJ INJ ONE (07:00)
[2018-05-07] MEDS ORDERED: LIDOCAINE 2% (SDV) 5 ML INJ ONE (07:00)
[2018-05-07] MEDS ORDERED: POVIDONE IODINE 10% 28.4 GM OINT ONE (07:22)
--- NOTE | 2018-05-07 07:35 | PREAC ---
Date/Time of Note Date/Time of Note DATE: 05/07/18 TIME: 07:24 Anesthesia Eval and Record Evaluation Time Pre-Procedure Interview DATE: 05/07/18 TIME: 07:24 Age 77 Sex female NPO: 8 hrs Preoperative diagnosis Cervical myelopathy Planned procedure cervical three to thoracic two posterioir intrumental fusion possibler cervical thoracic laminectomy and foraminotomy allograft versus allbone graft placement Past Medical History Past Medical History: Includes Cardio: HTN Renal: Other (History of hydronephrosis s/p stents from uterine cancer radiation) Surgery & Anesthesia Issues No known issue Meds Anticoagulation: No Beta Johnathan within 24 hr: Yes Active Scripts Carvedilol* (Coreg*) 3.125 Mg Tablet, 3.125 MG PO BID, #60 TAB Prov:GUANACO BIRD MD 05/26/17 Reported Medications Hydrocodone/Acetaminophen ([place] 5-325 Tablet) 1 Each Tablet, 1 EACH PO, TAB 05/26/17 Amlodipine Besylate* (Norvasc*) 5 Mg Tablet, 5 MG PO BID, TAB 05/14/16 Meds reviewed: Yes Allergies Coded Allergies: Iodine and Iodide Containing Produc (Verified Adverse Reaction, Severe, HYPOTENSION, BREATHING DIFFICULTY, 05/26/17) Allergies Reviewed: Yes Labs/Studies Labs Reviewed: Reviewed by anesthesiologist test: N/A Studies: ECG, CXR Pre-procedure Exam Last vitals Full dentures Vital Signs Date Temp Pulse Resp B/P (MAP) Pulse Ox O2 O2 Flow FiO2 Time Delivery Rate 05/07/18 98.6 84 24 146/93 100 Room Air 06:00 (110) Airway: Adequate mouth opening, Adequate thyromental dist Mallampati: Mallampati II Teeth: Normal Lung: Normal Heart: Normal ASA Physical Status ASA physical status: 2 Emergency: None Planned Anesthetic General/MAC: ETT, A Line, CVP Pre-operative Attestations Prior to commencing anesthesia and surgery, the patient was re-evaluated, there was verification of: *The patient's identity *The results of appropriate recent lab work and preoperative vital signs *The above evaluation not changing prior to induction *Anesthetic plan, risk benefits, alternative and complications discussed with patient/family; questions answered; patient/family understands, accepts and wishes to proceed. EVELIA ALMAZAN MD May 07, 2018 07:35
[2018-05-07] MEDS ORDERED: BUPIVACAINE 0.5%/EPI (SDV) 30 ML INJ INJ ONE (08:00)
[2018-05-07] MEDS ORDERED: LIDOCAINE 1% (MPF) 30 ML INJ INJ ONE (08:00)
[2018-05-07] MEDS ORDERED: LACTATED RINGER'S 1,000 ML IV SCH (08:00)
--- NOTE | 2018-05-07 08:02 | HPN ---
Date/Time of Note Date/Time of Note DATE: 05/07/18 TIME: 08:02 Interval H&P Admission Note Pt. seen H&P reviewed: No system changes GRANT PALMA MD May 07, 2018 08:02
--- NOTE | 2018-05-07 08:02 | PN ---
Date/Time of Note Date/Time of Note DATE: 05/07/18 TIME: 08:02 Assessment/Plan Assessment/Plan The patient is in the preop area by herself. Unfortunately neither her daughter or her son is with her. She tells me that they are busy with her own family lives and were not able to come in. The risks and benefits of the above operation were again explained in detail to the patient the risks including bleeding, infection, weakness, numbness, paralysis, bowel or bladder dysfunction, cerebrospinal fluid leak, failure of improvement of symptoms or worsening of symptoms, need for further surgeries including revision of the cervicothoracic and cemented fusion or extension of the fusion and instrume ntation and decompression, as well as those risks associated with surgery and general anesthesia including deep venous thrombosis, primary embolism, heart attack, stroke, pneumonia and . The patient fully understands the above discussion and wishes to proceed with the above surgery. GRANT PALMA MD May 07, 2018 08:02
[2018-05-07] MEDS ORDERED: PHENYLephrine 10 MG INJ ONE (08:07)
[2018-05-07] MEDS ORDERED: LIDOCAINE 1% (MPF) 30 ML INJ ONE (08:47)
[2018-05-07] MEDS ORDERED: ONDANSETRON 4 MG INJ ONE ×2 (09:47→13:21)
[2018-05-07] MEDS ORDERED: THROMBIN 5000 UNIT VIAL TOP ONE (10:00)
[2018-05-07] MEDS ORDERED: GELATIN SIZE 100 SPONGE TOP ONE (10:00)
[2018-05-07] MEDS ORDERED: FAMOTIDINE 20 MG INJ ONE (10:49)
[2018-05-07] MEDS ORDERED: OXYCODONE/ACETAMINOPHEN (5/325) TAB PO PRN ×2 (11:00)
[2018-05-07] MEDS ORDERED: FENTAnyl 50 MCG/ML VIAL IV PRN ×3 (11:00)
[2018-05-07] MEDS ORDERED: HALOPERIDOL 5 MG INJ IV PRN (11:00)
[2018-05-07] MEDS ORDERED: HYDROmorphONE 1 MG/5 ML IV SYRINGE IV PRN ×3 (11:00)
[2018-05-07] MEDS ORDERED: hydrALAzine 20 MG INJ IV PRN (11:00)
[2018-05-07] MEDS ORDERED: EPHEDrine SULFATE 50 MG/5 ML SYG IV PRN (11:00)
[2018-05-07] MEDS ORDERED: ALBUMIN HUMAN 5% 250 ML IV PRN (11:00)
[2018-05-07] MEDS ORDERED: PROCHLORPERAZINE 10 MG INJ IV PRN (11:00)
[2018-05-07] MEDS ORDERED: HYDROmorphONE 2 MG/ML SYG ONE (13:47)
--- NOTE | 2018-05-07 14:40 | NUR ---
PACU: Received patient in pacu via bed s/p C3-T2 post fusion & laminotomy asleep but arousable, vss HOB @ semi martinez position, breathing with ease, back neck dressing dry & intact , new crow draining & patent,placed scd on both legs, Dr. Connors phoned & spoke to patient's son & given updates. will continue to monitor.
--- NOTE | 2018-05-07 14:49 | PAC ---
Date/Time of Note Date/Time of Note DATE: 05/07/18 TIME: 14:49 Post-Anesthesia Notes Post-Anesthesia Note Last documented vital signs Vital Signs Date Temp Pulse Resp B/P (MAP) Pulse Ox O2 O2 Flow FiO2 Time Delivery Rate 05/07/18 98.6 84 24 146/93 100 Room Air 06:00 (110) Activity: WNL Respiratory function: WNL Cardiovascular function: WNL Mental status: Baseline Pain reasonably controlled: Yes Hydration appropriate: Yes Nausea/Vomiting absent: Yes EVELIA ALMAZAN MD May 07, 2018 14:49
--- NOTE | 2018-05-07 14:49 | SIPON ---
Date/Time of Note Date/Time of Note DATE: 05/07/18 TIME: 14:46 Operative Report Preoperative Diagnosis s/p prior C3-T1 anterior fusion for multilevel cervical and cervicothoracic stenosis Postoperative Diagnosis same as above Operation/Procedure Performed C3-T2 posterior instrumented fusion, Bilateral C7-T1, T1-2 laminotomy and foraminotomy, auto and allo bone graft Surgeon see signature line fitness assistant None Anesthesia: general Estimated blood loss: 50 - 100 ml's (100cc) Transfusion Required none Specimen None Grafts/Implants See Operative report Complications none GRANT PALMA MD May 07, 2018 14:49
--- NOTE | 2018-05-07 14:50 | OPR ---
Date/Time of Note Date/Time of Note DATE: 05/07/18 TIME: 14:50 Operative Report Procedure Date: May 07, 2018 Preoperative Diagnosis Please see below. Postoperative Diagnosis Please see below. Operation/Procedure Performed Please see below. Surgeon see signature line Third Cook None Anesthesia Type: general Estimated Blood Loss: 50 - 100 ml's (100cc) Transfusion none Specimen None Grafts/Implants Please see below. Tubes/Drains None Complications none Pt Condition Post Procedure: stable Disposition: PACU Procedure Description Date of operation: 05/07/2018 Operating surgeon: Grant Connors M.D. Preoperative diagnosis: Prior history of multilevel cervical and cervicothoracic with myelopathy status post stage I: C3-T1 anterior discectomy and instrumented fusion Post operative diagnosis: Prior history of multilevel cervical and cervicothoracic with myelopathy status post stage I: C3-T1 anterior discectomy and instrumented fusion Procedure(s) performed: Stage II of 2: 1. Bilateral C7 and T1 laminotomies and bilateral C7-T1 and T1-T2 posterior foraminotomies 2. C3-T2 posterior instrumentation (RTI 3.5 mm, 4 mm lateral mass screws, 4.5 mm T1 and T2 pedicle screws) 3. C3-T2 posterior arthrodesis 4. Exploration of posterior cervical and cervicothoracic junction for pseudoarthrosis 5. Morselized local autologous bone graft harvest 6. Morselized allograft placement (cancellous bone chips, demineralized bone matrix putty, Nanos allogfrat) 7. Intraoperative fluoroscopy with professional interpretation 8. Intraoperative neurophysiologic monitoring including SSEP, MEP and EMG Indication for procedure: This is a 77-year-old female who developed new onset lower extremities numbness and weakness and difficulty ambulation just over a year ago. She was found to have a T4/T5 sensory deficit level as well as a right foot drop and right lower extremity weakness more than the left. The patient subsequently underwent extensive workup by neurology both at [facility] as well as [facility] and she was not found to have evidence of other conditions such as Guillain-Epps syndrome, CIDP or other underlying neurologic condition. The consensus was that the patient's above symptomatology was likely related to her multilevel cervical and cervicothoracic stenosis. The patient successfully underwent a C3-T1 multilevel anterior cervical discectomy and instrumented fusion almost a year ago. The patient postoperatively did very well and has over time regain sensation in her lower extremities and is now able to ambulate again with a front wheel walker. The patient's neck pain has subsequently been improving postoperatively. As had been discussed with the patient preoperatively, she would likely need to undergo the second stage of the operation that would be posterior instrumented fusion from C3-T2 as anterior instrumentation alone for 5 level cervicothoracic fusion would likely result in pseudoarthrosis and possible hardware failure. The patient for various reasons including personal reasons has been putting off postoperative clinic visits and at the second stage of her surgery has been postponed multiple times due to personal reasons as well as insurance authorization. In the meantime, a follow- up x-ray that we obtained outpatient showed a subtle backing out of the middle part of the anterior plate that could indicate very early signs of pseudoarthrosis and the hardware backing out. This finding was not noted in the radiology report. In order to prevent any significant hardware pullout, hardware failure, the second stage of the previously planned operation would be recommended. The patient's surgery has now been rescheduled for today, the risks and benefits of the above operation were again explained in great detail to the patient and she agreed to undergo the above surgery. Neither the patient's daughter or son are with her and she tells me that they are busy with her own family lives. She has agreed that I can update her family after surgery. Description of operative procedure: The patient was brought to the operating room and after general anesthesia was obtained, the Cota headholder was placed around the patient's head. She was then placed prone onto chest rolls and her head and neck was positioned where it spontaneously wanted to go due to the patient's prior multilevel cervicothoracic fusion. Her head and neck was fixed to the table in the position. The patient's neck was lordotic. Her arms were then tucked by her side. All pressure points were noted and padded appropriately. Her shoulders were taped down. A midline cervicothoracic incision was marked from approximately C3 down to T2. A small strip of hair was shaven at the occipitocervical junction. After the skin was prepped and draped under standard sterile fashion, local anesthetics were infiltrated into the marked incision. The skin was then incised down to the level of the fascia. Subperiosteal dissection was carried down the spinous processes and lamina from C3 down to T2. The C2-C3 interlaminar space was confirmed under direct lateral fluoroscopy. The exposure was carried out further laterally and the lateral masses from C3-C7 were fully exposed as well as the proximal T1 and T2 transverse processes. The C3-T1 facet joints were then explored for fusion mass. There was partial fusion mass noted at C3-4 and C4-5 levels. In order to delineate the location of the T1 and T2 pedicles, we then performed a small bilateral T1 and T2 laminotomies as well as bilateral C7-T1 and T1-T2 foraminotomies. Once the superior and inferior borders of the T1 and T2 pedicles were located, a small entry point at the junction of the T1 lamina with T1 transverse process and T2 laminae were T2 transverse process was drilled. Using the pedicle finder we were then able to cannulate the T1 and T2 pedicles b ilaterally initially to a depth of 20 mm and eventually to a depth of 30 mm. The probe was then used serially to confirm that the noble of the pedicles were not breached. 4.5 mm diameter pedicle screws were then inserted achieving good bony purchase. A starting entry point close to the midpoint of the C3-C6 lateral masses was done drilled. Using a handheld drill, the lateral masses was drilled to a depth of 14 mm along the Magerl trajectory. The probe was used to confirm that the noble of the holes were not breached. The outer cortex of the lateral masses was then undertapped. 3.5 and 4 mm diameter lateral mass screws were inserted from C3-C6. At some of these levels, longer lateral mass screws (longer than 14 mm) were used and the excess length of these screws was left proud in order to allow easier carine placement later by keeping the screw tulip heads better aligned. No lateral masses were placed at C7 since they would collide with the T1 pedicle screws. Proper-sized rods were then measured and contoured so that there would be no excess stress placed on the screw heads. The setscrews were than easily inserted and fully tightened with the torque and counter torque wrench devices from C3-T2. The wound was copiously irrigated with antibiotic solution. The posterior bony surfaces including the facet joints and the lamina were fully decorticated. A combination of the locally harvested morcellized autologous bone together with morcellized allograft (DBM putty, cancellous bone chips and Nanos) was then placed over the decorticated bony surfaces from C3-T2. The muscle and fascia layers were then reapproximated with interrupted sutures. The dermal layer was reapproximated with interrupted sutures. The skin was reapproximated with a simple running Rapide suture. A sterile dressing was placed on top of the incision site. The patient was then placed supine on the hospital bed. The Cota wet process miller head was removed from her head. She was then woken up, extubated and transported to the recovery room in stable condition. Intraoperative neurophysiologic signals were stable throughout the procedure. The patient was awake alert and moving her upper and lower extremities well to command. I was able to update the patient's son postoperatively over the phone. Her daughter however could not be reached and we left a voicemail for her to call us back. Estimated blood loss: 100 cc Blood products administered: None Packs/drains: None Type of anesthesia: General Incision: Midline cervicothoracic Skin closure: Simple running Rapide 3-0 suture Wound classification: Cleaned Specimen removed: None Patient's condition: Stable Prognosis: Good GRANT CONNORS MD May 07, 2018 14:50
[2018-05-07] MEDS ORDERED: CYCLOBENZAPRINE 10 MG TAB PO PRN (15:00)
[2018-05-07] MEDS ORDERED: traMADol 50 MG TAB PO PRN (15:00)
[2018-05-07] MEDS ORDERED: ACETAMINOPHEN 1000MG/100ML IV 100 ML IVPB ONE (15:00)
[2018-05-07] MEDS ORDERED: NALOXONE (0.4 MG/ML) INJ IV PRN (15:00)
[2018-05-07] MEDS ORDERED: ONDANSETRON 4 MG INJ IV PRN (15:00)
[2018-05-07] MEDS ORDERED: BISACODYL 10 MG SUPP PR PRN (15:00)
[2018-05-07] MEDS: ONDANSETRON 4 MG INJ IV PRN ×2 (15:31→17:51)
[2018-05-07] MEDS: CEFAZOLIN 1 GM/50 ML (PMX) 50 ML IVPB SCH ×2 (15:40→22:24)
--- NOTE | 2018-05-07 18:11 | NUR ---
PACU: Transferred patient to room 522 via bed w/ bus monitor, AAOX4 vss HOB @ semi martinez position, breathing with ease, back neck dressing dry & intact , crow draining & patent, placed scd on both legs, pedal pulses good moving BUE/ BLE well given IV pain medications for comfort, IV Ancef 1 gram given, pain tolerable, Report given to KAREN Norman
--- NOTE | 2018-05-07 18:44 | NUR ---
Received patient from PACU via bed. Patient sleeping but easily arousable, s/p C3-T2 posterior fusion & laminotomy. Back of neck dressing clean, dry & intact. Mckay cath intact draining to gravity. Skin check done with Abel Shelton RN. Please see attach photo. Kept patient comfortable. Call light within easy reach.
--- NOTE | 2018-05-07 19:30 | NUR ---
Pt was transported from recovery to [facility]. I called [facility] to get status on Pt to get cervical spine xray done in the department due to dr ordering non portable, I was told the nurse will call back. 19:25 -JF
[2018-05-07] MEDS: HYDROmorphONE 0.5 MG/0.5 ML SYG IV PRN (19:44)
[2018-05-07] MEDS: D5W-0.45 NACL + KCL 20 MEQ 1,000 ML IV SCH ×2 (19:46→23:41)
[2018-05-07] MEDS: HYDROCODONE/APAP (10/325) TAB PO SCH ×2 (19:46→21:00)
[2018-05-07] MEDS: AMLODIPINE 5 MG TAB PO SCH (20:57)
[2018-05-07] MEDS: DOCUSATE SODIUM 100 MG CAP PO SCH (20:57)
[2018-05-08] VITALS (11 sets, daily range): BP systolic 110–141; BP diastolic 57–81; PULSE 67–81; RESP 17–19
[2018-05-08] MEDS: HYDROCODONE/APAP (10/325) TAB PO SCH ×4 (02:24→20:56)
[2018-05-08] MEDS: D5W-0.45 NACL + KCL 20 MEQ 1,000 ML IV SCH ×2 (06:04→20:53)
[2018-05-08] MEDS: HYDROmorphONE 0.5 MG/0.5 ML SYG IV PRN ×2 (06:04→13:17)
[2018-05-08] MEDS: PANTOPRAZOLE 40 MG INJ IV SCH (06:05)
[2018-05-08] MEDS: CEFAZOLIN 1 GM/50 ML (PMX) 50 ML IVPB SCH (06:05)
[2018-05-08] MEDS: DOCUSATE SODIUM 100 MG CAP PO SCH ×2 (08:32→20:54)
[2018-05-08] MEDS: AMLODIPINE 5 MG TAB PO SCH ×2 (08:32→20:56)
--- NOTE | 2018-05-08 10:15 | NUR ---
PT EVALUATION NOTE Therapy day number 1 Evaluation Start Time 09:30 Evaluation End Time 10:15 Evaluation Total Time 45 min Subjective Current complaint of pain Pain Scale NUMERIC Pain Intensity 7 (0-10) Patient Stated Goal for Pain Relief 0 (0-10) Pain Level Comment cervical area Pre Treatment Vital Signs Stable Yes Additional Mobility Comments unable to come to sitting,attempted rolling,able to only roll 50% Additional Gait Comments unable to amb at this time Weight Bearing Assessment Label Bilat Lower Extremity Weight Bearing Status Full Weight Bearing Additional Balance Assessments Comments unable to come to sitting or standing positions due to pain Safety Judgement Fair Activity Tolerance Poor Equipment Present Mckay Catheter IV pump Post Treatment Pain Intensity 10 0-10 Total Minutes 45 Total Units 3 PT Technical Record Comment Patient is a 77 year old female admitted to [facility] who underwent cervical three to thoracic two posterior instrumental fusion possible cervical thoracic laminectomy and foraminotomy on 05/07/18. PMH: HTN PRECAUTIONS: fall risk, cervical precautions PLOF: Patient lives alone in a second floor apartment with 14 stairs to access the apartment, no elevator. Prior to hospitalization, patient was independent with ambulation with a 4 wheeled walker and states she was able to negotiate the stairs with someone assisting her to bring the 4 wheeled walker up or down the stairs for her. CLOF: Javad JONES cleared patient for PT evaluation, patient agreeable to participate with PT evaluation, c/o cervical pain rated at 7/10. Received patient in semifowlers position in bed. Patient educated in safety awareness, fall prevention and purpose of PT evaluation. Attempted x2 to assist patient with rolling in bed, required max assist and only able to roll 50% of the way to sidelying due to increased pain. Patient returned to supine, all needs met, call light within reach, bed alarm reset. Javad JONES notified of patient's status at the end of the session. PT RECOMMENDATIONS: Patient's participation and mobility limited by pain. Patient will benefit from skilled inpatient PT intervention to address strength, balance, safety and functional mobility. Recommend discharge to ARU vs SNF for continued rehab as patient lives alone. DME needs to be determined based on discharge disposition and progress.
[2018-05-08] MEDS ORDERED: POTASSIUM CHLORIDE (SR) 20 MEQ TAB PO STA (12:21)
[2018-05-08] MEDS ORDERED: MAGNESIUM SULFATE 2 GM/50 ML 50 ML IVPB ONE (12:30)
--- NOTE | 2018-05-08 13:01 | PN ---
Date/Time of Note Date/Time of Note DATE: 05/08/18 TIME: 12:18 Assessment/Plan VTE Prophylaxis Risk score (from Nsg)>0 risk: 6 SCD applied (from Nsg): Yes Pharmacological prophylaxis: NA/contraindicated Pharm contraindication: other (post op ) Lines/Catheters IV Catheter Type (from Nrsg): Saline Lock Urinary Cath still in place: Yes Reason Cath still needed: other (indicate) (post op ) Assessment/Plan Assessment/Plan 77-year-old female with: 1. Cervical stenosis, status post C3-T2 posterior fusion, POD #1 Pain control Repeat x-rays this morning for postop follow-up as ordered by neurosurgery PT, soft Neck collar for support, no need for C collar per Neurosurgery. Patient refusing to have a Crow catheter removed until she is able to stand, will follow up later after x-rays done. Discharge planning in the next 24-48 hours to either home with home health PT versus SNF 2. Hypertension: Continue home medications 3. Hypokalemia and hypomagnesemia: Repleting 4. Episode of nausea and vomiting while in pain and discomfort. Pain control, will continue clear liquids for now until patient more calm and comfortable and advance diet. Continue IV fluids until patient tolerating diet. 5. Right hand edema related to infiltrated PIV, IV has been removed. Elevate right hand. Prophylaxis: SCDs for DVT prophylaxis, PPI for GI ppx. Disposition: Postop x-rays today, PT, soft neck collar for neck support, hopefully discharge planning home with HHPT versus SNF in the next 24-48 hours. Result Diagram: 05/08/18 0547 05/08/18 0547 Results 24hrs Laboratory Tests Test 05/07/18 12:30 05/07/18 13:00 05/07/18 14:45 05/08/18 05:47 Blood Gas Blood arterial Specimen Source Arterial Blood 05/07/2018 12:52: Date Drawn 23 PM Arterial Blood pH 7.409 (Temp corrected) Arterial Blood 41.0 pCO2 (Temp correct) Arterial Blood 255.3 H pO2 (Temp corrected) Arterial Blood 25.3 HCO3 Arterial Blood 0.6 Base Excess Arterial Blood 99.1 Oxygen Saturation Richard Test N/A Arterial Blood A-Line Gas Puncture Site Arterial 0.1 Blood Carboxyhemo globin Arterial Blood 0.2 Methemoglobin Blood Gas A-a O2 55.1 H Differential Oxyhemoglobin 98.8 Percent Blood Gas 37.0 Temperature Blood Gas 10.0 Respiration Rate Blood Gas Actual 12 Respiration Rate Blood Gas VENT - AC Modality FiO2 50.0 Blood Gas Tidal 350.0 Volume Blood Gas Low 5.0 PEEP Setting Blood Gas MDA Notified Whom Blood Gas 05/07/2018 12:56: Notified Time 14 PM White Blood Count 4.8 # 10.0 # Red Blood Count 3.34 L 3.32 L Hemoglobin 9.9 L 9.8 L Hematocrit 30.7 L 31.4 L Mean Corpuscular 91.9 94.6 Volume Mean Corpuscular 29.6 29.5 Hemoglobin Mean Corpuscular 32.2 31.2 L Hemoglobin Concen t Red Cell 13.7 13.5 Distribution Width Platelet Count 288 # 224 # Mean Platelet 9.4 9.5 Volume Immature 0.200 0.400 Granulocytes % Neutrophils % 65.2 81.7 H Lymphocytes % 22.0 7.0 L Monocytes % 10.5 10.6 Eosinophils % 1.5 0.0 Basophils % 0.6 0.3 Nucleated Red 0.0 0.0 Blood Cells % Immature 0.010 0.040 H Granulocytes # Neutrophils # 3.1 8.1 H Lymphocytes # 1.1 0.7 L Monocytes # 0.5 1.1 H Eosinophils # 0.1 0.0 Basophils # 0.0 0.0 Nucleated Red 0.0 0.0 Blood Cells # CBC Results 1 *H Faxed/Phoned Urine Color YELLOW Urine Clarity CLOUDY A Urine pH 6.0 Urine Specific 1.019 Ama Urine Ketones NEGATIVE Urine Nitrite POSITIVE A Urine Bilirubin NEGATIVE Urine NEGATIVE Urobilinogen Urine Leukocyte 3+ H Esterase Urine Microscopic 73 H RBC Urine Microscopic > 182 H WBC Urine Squamous FEW Epithelial Cells Urine Amorphous FEW A Crystals Urine Bacteria MANY A Urine Hemoglobin 2+ H Urine Glucose NEGATIVE Urine Total 1+ H Protein Sodium Level 141 Potassium Level 3.8 Chloride Level 98 Carbon Dioxide 32 H Level Anion Gap 11 Blood Urea 12 Nitrogen Creatinine 0.78 Est Glomerular Filtrat Rate mL/min Glucose Level 159 Calcium Level 8.4 Phosphorus Level 4.2 Magnesium Level 1.6 L Subjective 24 Hr Interval Summary Free Text/Dictation Patient complains of neck pain and has been refusing to do her x-rays in radiology, she is requested to do them in her room at the bedside. She is complaining of some nausea and had an episode of vomiting x1, will change to clear liquids in order to let her stomach settle down a little bit. Pain control. Soft neck collar to be placed for neck support. Exam/Review of Systems Exam Vitals Vital Signs Date Temp Pulse Resp B/P (MAP) Pulse Ox O2 O2 Flow FiO2 Time Delivery Rate 05/08/18 98.3 74 18 111/57 98 Nasal 11:04 (75) Cannula 05/07/18 2.0 18:24 Intake and Output 05/07/18 05/07/18 05/08/18 1414:59 22:59 06:59 IntakeIntake Total 1100 ml 1650 ml OutputOutput Total 620 ml 1700 ml 3300 ml BalanceBalance 480 ml -1700 ml -1650 ml Constitutional: alert, oriented, well developed Neck: other (Status post C3-T2 fusion.) Respiratory: clear to auscultation, normal air movement Cardiovascular: regular rate and rhythm, nl pulses Gastrointestinal: soft, non-tender Genitourinary - Female: other (crow cathetr in place ) Musculoskeletal: nl extremities to inspection Extremities: normal pulses, edema (edematous right hand adjacent to site of previous PIV ) Neurological: BRAINER II-XII intact, nl mental status, nl speech, nl strength Results Results 24hrs Laboratory Tests Test 05/07/18 12:30 05/07/18 13:00 05/07/18 14:45 05/08/18 05:47 Blood Gas Blood arterial Specimen Source Arterial Blood 05/07/2018 12:52: Date Drawn 23 PM Arterial Blood pH 7.409 (Temp corrected) Arterial Blood 41.0 pCO2 (Temp correct) Arterial Blood 255.3 H pO2 (Temp corrected) Arterial Blood 25.3 HCO3 Arterial Blood 0.6 Base Excess Arterial Blood 99.1 Oxygen Saturation Richard Test N/A Arterial Blood A-Line Gas Puncture Site Arterial 0.1 Blood Carboxyhemo globin Arterial Blood 0.2 Methemoglobin Blood Gas A-a O2 55.1 H Differential Oxyhemoglobin 98.8 Percent Blood Gas 37.0 Temperature Blood Gas 10.0 Respiration Rate Blood Gas Actual 12 Respiration Rate Blood Gas VENT - AC Modality FiO2 50.0 Blood Gas Tidal 350.0 Volume Blood Gas Low 5.0 PEEP Setting Blood Gas MDA Notified Whom Blood Gas 05/07/2018 12:56: Notified Time 14 PM White Blood Count 4.8 # 10.0 # Red Blood Count 3.34 L 3.32 L Hemoglobin 9.9 L 9.8 L Hematocrit 30.7 L 31.4 L Mean Corpuscular 91.9 94.6 Volume Mean Corpuscular 29.6 29.5 Hemoglobin Mean Corpuscular 32.2 31.2 L Hemoglobin Concen t Red Cell 13.7 13.5 Distribution Width Platelet Count 288 # 224 # Mean Platelet 9.4 9.5 Volume Immature 0.200 0.400 Granulocytes % Neutrophils % 65.2 81.7 H Lymphocytes % 22.0 7.0 L Monocytes % 10.5 10.6 Eosinophils % 1.5 0.0 Basophils % 0.6 0.3 Nucleated Red 0.0 0.0 Blood Cells % Immature 0.010 0.040 H Granulocytes # Neutrophils # 3.1 8.1 H Lymphocytes # 1.1 0.7 L Monocytes # 0.5 1.1 H Eosinophils # 0.1 0.0 Basophils # 0.0 0.0 Nucleated Red 0.0 0.0 Blood Cells # CBC Results 1 *H Faxed/Phoned Urine Color YELLOW Urine Clarity CLOUDY A Urine pH 6.0 Urine Specific 1.019 Ama Urine Ketones NEGATIVE Urine Nitrite POSITIVE A Urine Bilirubin NEGATIVE Urine NEGATIVE Urobilinogen Urine Leukocyte 3+ H Esterase Urine Microscopic 73 H RBC Urine Microscopic > 182 H WBC Urine Squamous FEW Epithelial Cells Urine Amorphous FEW A Crystals Urine Bacteria MANY A Urine Hemoglobin 2+ H Urine Glucose NEGATIVE Urine Total 1+ H Protein Sodium Level 141 Potassium Level 3.8 Chloride Level 98 Carbon Dioxide 32 H Level Anion Gap 11 Blood Urea 12 Nitrogen Creatinine 0.78 Est Glomerular Filtrat Rate mL/min Glucose Level 159 Calcium Level 8.4 Phosphorus Level 4.2 Magnesium Level 1.6 L Medications Medication Current Medications Lactated Ringer's 1,000 ml @ 0 mls/hr Q0M IV Last administered on 05/07/18at 07:43; Admin Dose 10 MLS/HR; Start 05/07/18 at 08:00 Amlodipine Besylate (Norvasc) 5 mg BID PO Last administered on 05/08/18at 08:32; Admin Dose 5 MG; Start 05/07/18 at 21:00 Carvedilol (Coreg) 3.125 mg BID PO Last administered on 05/07/18at 20:57; Admin Dose 3.125 MG; Start 05/07/18 at 21:00 Potassium Chloride/Dextrose/ Sod Cl 1,000 ml @ 100 mls/hr Q10H IV Last administered on 05/08/18 06:04; Admin Dose 100 MLS/HR; Start 05/07/18 at 14:34 Acetaminophen/ Hydrocodone Bitart (Edwards (10/325)) 2 tab Q6H PO Last administered on 05/08/18at 08:32; Admin Dose 2 TAB; Start 05/07/18 at 15:00 Tramadol HCl (Ultram) 50 mg Q4H PRN PO .PAIN 1-5; Start 05/07/18 at 15:00 Hydromorphone HCl (Dilaudid) 0.2 mg Q1H PRN IV .BREAKTHROUGH PAIN Last administered on 05/08/18 06:04; Admin Dose 0.2 MG; Start 05/07/18 at 15:00 Ondansetron HCl (Zofran Inj) 4 mg Q6H PRN IV NAUSEA/VOMITING Last administered on 05/07/18at 19:56; Admin Dose 4 MG; Start 05/07/18 at 15:00 Bisacodyl (Dulcolax Supp) 10 mg DAILY PRN SD .CONSTIPATION; Start 05/07/18 at 15:00 Docusate Sodium (Colace) 100 mg BID PO Last administered on 05/08/18at 08:32; Admin Dose 100 MG; Start 05/07/18 at 21:00 Pantoprazole (Protonix Iv) 40 mg DAILY@06 IV Last administered on 05/08/18at 06:05; Admin Dose 40 MG; Start 05/08/18 at 06:00 Cyclobenzaprine HCl (Flexeril) 5 mg TID PRN PO .MUSCLE SPASM; Start 05/07/18 at 15:00 Naloxone HCl (Narcan) 0.2 mg Q2M PRN IV .RR 8 BREATHS/MIN OR LESS; Start 05/07/18 at 15:00 HALIMA CAMPBELL May 08, 2018 12:52
--- NOTE | 2018-05-08 17:45 | NUR ---
RN notes Pt awake in bed, aox4 able to make needs known, all due medications given, all needs attended. kept pt clean, dry and comfortable. pt had c/o pain,managed well with pain medications and relaxation technique. soft neck brace applied per MD's directions. pt refused removal of FC. explained risk and benefits, but pt still refused pt aware with POC. stable at this time, will endorse
[2018-05-09] VITALS (8 sets, daily range): BP systolic 117–135; BP diastolic 58–70; PULSE 68–95; RESP 16–19
[2018-05-09] MEDS: HYDROCODONE/APAP (10/325) TAB PO SCH ×3 (04:22→15:18)
[2018-05-09] MEDS: PANTOPRAZOLE 40 MG INJ IV SCH (06:50)
[2018-05-09] MEDS: D5W-0.45 NACL + KCL 20 MEQ 1,000 ML IV SCH ×2 (06:50→16:34)
--- NOTE | 2018-05-09 07:55 | NUR ---
RN NOTES: PT AOX4, ON SOFT COLLAR. S/P C3-T3 POSTERIOR FUSION, LAMINECTOMY ON 05/07. PAIN CONTROLLED WITH PAIN MED SCHEDULED. PT SLEPT WELL AND ON SCD'S. PT WILL BE CONTINUED TO EVAL THIS AM. F/C TO [facility], PT STILL REFUSED D/C F/C. AWARE PER REPORT CHANGING SHIFT. D/C PLANNING ONGOING. ENDORSED TO AM SHIFT.
[2018-05-09] MEDS ORDERED: HYDR-3609 PO (08:52)
[2018-05-09] MEDS ORDERED: CYCL10TA7 PO (08:52)
[2018-05-09] MEDS ORDERED: TRAM50TA2 PO (08:52)
[2018-05-09] MEDS ORDERED: DOCU-144 PO (08:52)
[2018-05-09] MEDS ORDERED: BISA10SU55 PR (08:52)
--- NOTE | 2018-05-09 08:53 | PDOCDIS ---
Discharge Instructions CONDITION [id number] Patient Condition: [id number] Good HOME CARE INSTRUCTIONS: [id number] Diet Instructions: [id number] FOLLOW UP/APPOINTMENTS Follow-up Plan Dr Connors 1 week pcp 1 week MARCO MYERS MD May 09, 2018 08:53
--- NOTE | 2018-05-09 09:32 | NUR ---
PT NOTE [facility] Patient: Margot Nolasco : 1940 Age/Sex: 77/F Unit#: [id number] Room/Bed: [facility]/A User: Mine Baker PTA Date: 05/09/18 09:32 Type: PT Technical Record Therapy day number 2 Subjective Current complaint of pain Pain Scale NUMERIC Pain Intensity 10 (0-10) Patient Stated Goal for Pain Relief 0 (0-10) Pain Level Comment cervical Transfer Training Start Time 08:59 Supine to Sit Moderate Assist Bed Mobility Sit to Supine Moderate Assist Sitting Tolerance 10 min Additional Mobility Comments unable to stand due to increasing cervical pain Transfer Training End Time 09:32 Total Transfer Training Time 33 min (8-127) Additional Gait Comments TBA Weight Bearing Assessment Label Bilat Lower Extremity Weight Bearing Status Full Weight Bearing Static Sitting Balance Fair Dynamic Sitting Balance Fair minus Safety Judgement Fair Activity Tolerance Poor Equipment Present A pump Mckay Catheter IV pump Post Treatment Pain Intensity 10 0-10 Total Treament Time 33 min (8-127) Total Minutes 33 Total Units 2 PT Technical Record Comment S: RN Lillie cleared pt for PT. Pt c/o 10/10 cervical pain and after max encouragement, agreeable to tx O: Received pt in semifowler. Re-educated pt on spinal precautions. ModA semifowler <> sit to EOB. Sitting tolerance ~10 mins. Pt complaining of intense cervical pain and refused OOB activities despite max encouragement from this therapist. Returned pt back to bed. Positioned pt to comfort in semifowler. Call light/phone within reach. Bed alarm on. Needs met. Informed RN of pt status and PT activities A: Poor tolerance to tx. Limited due to cervical pain. Only tolerated to sit to EOB. P: Continue w/ POC and progress as tolerated
--- NOTE | 2018-05-09 09:37 | PDOCDIS ---
Discharge Instructions DIAGNOSIS Discharge Diagnosis 77-year-old female with cervical stenosis Status post C3-T2 posterior fusion and C7-T2 laminectomy and fusion Hypertension 77-year-old female with history of cervical stenosis, was electively admitted by Dr. Connors. She underwent multilevel cervical laminectomy, fusion, and posterior instrumentation. There were no intraoperative or postoperative complications. Initially, she planned to go home with her daughter. However, her daughter lives 3 hours away. I recommended few days at longterm facility. She agreed to [place] y[facility]. Patient is in a stable condition for discharge. Her neurological exam was unremarkable. She will be evaluated by physical therapy prior to discharge. CONDITION [id number] Patient Condition: [id number] Good HOME CARE INSTRUCTIONS: [id number] Diet Instructions: [id number] y FOLLOW UP/APPOINTMENTS Follow-up Plan Dr Connors 1 week pcp 1 week MARCO MYERS MD May 09, 2018 09:37
[2018-05-09] MEDS: AMLODIPINE 5 MG TAB PO SCH (10:08)
[2018-05-09] MEDS: DOCUSATE SODIUM 100 MG CAP PO SCH (10:08)
--- NOTE | 2018-05-09 12:10 | NUR ---
PT NOTE [facility] Patient: Margot Nolasco : 1940 Age/Sex: 77/F Unit#: [id number] Room/Bed: 2/A User: Mine Baker PTA Date: 05/09/18 12:10 Type: PT Technical Record Therapy day number 2 Subjective Current complaint of pain Pain Scale NUMERIC Pain Intensity 9 (0-10) Patient Stated Goal for Pain Relief 0 (0-10) Pain Level Comment cervical Transfer Training Start Time 11:47 Supine to Sit Minimum Assist Transfer Sit to Stand Ability Minimum Assist Bed Mobility Sit to Supine Moderate Assist Additional Mobility Comments STS x1, standing tolerance ~15 sec Transfer Training End Time 12:10 Total Transfer Training Time 23 min (8-127) Additional Gait Comments TBA Weight Bearing Assessment Label Bilat Lower Extremity Weight Bearing Status Full Weight Bearing Static Sitting Balance Fair Dynamic Sitting Balance Fair minus Standing Static Balance Fair Dynamic Standing Balance Fair minus Additional Balance Assessments Comments FWW Safety Judgement Fair Activity Tolerance Fair Equipment Present A pump Mckay Catheter IV pump Post Treatment Pain Intensity 9 0-10 Total Treament Time 23 min (8-127) Total Minutes 23 Total Units 2 PT Technical Record Comment S: KAREN Moreira cleared pt for PT. Pt c/o 9 cervical pain and was premedicated. Agreeable to tx O: Received pt in semifowler. See above for assist levels. Performed sit to stand x1. Standing tolerance ~15 secs and pt requested to return back to bed. Assisted back to bed and positioned pt to comfort in semifowler. Call light/phone within reach. Bed alarm on. Needs met. A: Fair tolerance to tx. Required mod encouragement to participate this treatment. Limited due to pain P: Continue w/ POC and progress as tolerated
--- NOTE | 2018-05-09 13:04 | PN ---
Date/Time of Note Date/Time of Note DATE: 05/09/18 TIME: 13:03 Assessment/Plan Assessment/Plan Date of progress note: 05/09/2018 The patient is postop day 2 status post stage II of 2: C3-T2 posterior instrumented fusion. The patient is overall doing well and her postoperative pain is being better controlled now. She is awake alert and oriented x4. She has been sitting up by the side of the bed with the help of physical therapy. She has not ambulated yet. She is tolerating p.o. intake. She denies any new weakness or numbness of her upper or lower extremities. Her cervical thoracic incision is clean dry and intact with a dressing in place. Motor strength bilateral upper and lower extremities is at least 4+ out of 5 proximally and distally. The patient's soft cervical collar is for discomfort only. I have encouraged the patient to try to get out of bed later today with the help of physical therapy. From a neurosurgery perspective, the patient can be discharged from the hospital tomorrow. I have discussed placement for the patient and since the patient's 2 children "are busy with their own lives" according to the patient, the patient will most likely benefit from acute rehab prior to going home. I will discussed this with the patient's hospitalist. I would like the patient to follow-up with me in 2-3 weeks for postoperative visit. The sutures are absorbable. Activities as tolerated. She is to limit lifting her arms above her shoulders no more than 15-20 pounds. She is to avoid use of NSAID medications for the next 3-4 months. The dressing can be removed on Wednesday. GRANT PALMA MD May 09, 2018 13:04
--- NOTE | 2018-05-09 14:43 | NUR ---
PT NOTE [facility] Patient: Margot Nolasco : 1940 Age/Sex: 77/F Unit#: [id number] Room/Bed: [facility]/A User: Mine Baker PTA Date: 05/09/18 14:43 Type: PT Technical Record Therapy day number 2 Subjective Current complaint of pain Pain Scale NUMERIC Pain Intensity 10 (0-10) Patient Stated Goal for Pain Relief 0 (0-10) Pain Level Comment 6/10 at rest, 10/10 w/ movement Transfer Training Start Time 14:20 Supine to Sit Minimum Assist Transfer Sit to Stand Ability Minimum Assist Bed Mobility Sit to Supine Moderate Assist Additional Mobility Comments STSx1 Transfer Training End Time 14:43 Total Transfer Training Time 23 min (8-127) Additional Gait Comments TBA Weight Bearing Assessment Label Bilat Lower Extremity Weight Bearing Status Full Weight Bearing Static Sitting Balance Fair Dynamic Sitting Balance Fair minus Standing Static Balance Fair Dynamic Standing Balance Fair minus Additional Balance Assessments Comments FWW Safety Judgement Fair Activity Tolerance Fair Equipment Present A pump Mckay Catheter IV pump Post Treatment Pain Intensity 10 0-10 Total Treament Time 23 min (8-127) Total Minutes 23 Total Units 2 PT Technical Record Comment S: RN cleared pt for PT. Pt c/o 6/10 cervical pain at rest and 10/10 pain w/ movement. Agreeable to tx O: Received pt in semifowler w/ PROCUREMENT PROFESSIONAL present in room. See above for assist levels. Performed sit to stand x1 and unable to tolerate longer due to increasing cervical pain. Assisted pt back to bed. Positioned pt to comfort in semifowler. Call light/phone within reach. Bed alarm on. Needs met. A: Fair tolerance to tx. Pt only able to tolerate sit to stand x1. Min/ModA throughout P: Continue w/ POC and progress as tolerated. Will initiate gait training next PT session Addendum: 05/09/18 at 1548 by AMANDA LANDRUM PT Discussed PT POC with CONSULTING PSYCHIATRIST, patient demonstrates limited tolerance for activity and limited secondary to pain. Patient currently unable to tolerate QID treatments, as such will reassess frequency of treatment to BID. Co-signed by Amanda Landrum, PT, DPT
[2018-05-09] MEDS: HYDROmorphONE 0.5 MG/0.5 ML SYG IV PRN (18:31)
--- NOTE | 2018-05-09 19:44 | NUR ---
Discharge disposition: Report received from day shift RN-Alivia who prepared discharge and gave report to [facility] yates. Pt VSS, AOOx3-4 with anxiety r/t pain in neck, pt given 0.2mg of dilaudid prior to d/c IV as well as soft collar applied. Pt dressed in transfer gowns, IV/awake overnight monitor and ID band d/c'ed Report given to EMS. All other needs met and questions answered to best abilities.
[2018-05-10] MEDS ORDERED: PANTOPRAZOLE (EC) 40 MG TAB PO SCH (06:00)
== END 2018-05-09 18:59 | DRG 460 ==
LOC: REC 05-07 05:45 → TEL 05-07 18:07
PROVIDERS: ADMIT Neurological Surgery; ATTEND Neurological Surgery
PROC: 0RG6071 Fusion of Thoracic Vertebral Joint with Autologous Tissue Substitute, Posterior Approach, Posterior Column, Open Approach (ICD-10-PCS; 2018-05-07)
PROC: 0RG4071 Fusion of Cervicothoracic Vertebral Joint with Autologous Tissue Substitute, Posterior Approach, Posterior Column, Open Approach (ICD-10-PCS; 2018-05-07)
PROC: 0RG2071 Fusion of 2 or more Cervical Vertebral Joints with Autologous Tissue Substitute, Posterior Approach, Posterior Column, Open Approach (ICD-10-PCS; principal; 2018-05-07 07:30)
DX: M47.12 Other spondylosis with myelopathy, cervical region (principal); M47.13 Other spondylosis with myelopathy, cervicothoracic region; I10 Essential (primary) hypertension; M48.02 Spinal stenosis, cervical region; E83.42 Hypomagnesemia; M48.03 Spinal stenosis, cervicothoracic region
CPT/HCPCS: 36600; 72040; 72052; 80048; 81001; 82803; 83735; 84100; 85025; 86850; 86900; 86901; 87086; 97162; 97530; C9359; C1713; C1762; C9113; J0131; J0690; J1170; J2250; J2405; J3010; J3475; J3480

== ENCOUNTER 2018-05-21 06:01 | Inpatient (IN) | payer OTHER ==
[~2018-05-21] VITALS: Ht 162.6 cm; Wt 56.6 kg
[2018-05-21] VITALS (20 sets, daily range): BP systolic 127–161; BP diastolic 60–92; PULSE 76–96; RESP 6–27; Ht 162.6 cm; Wt 56.6 kg
[~2018-05-21 06:01] MED LIST changes: +BISA10SU55 PR; +CYCL10TA7 PO; +DOCU-144 PO; +HYDR-3609 PO; +TRAM50TA2 PO
[2018-05-21] MEDS ORDERED: morphine 4 MG/ML VIAL IV STA (06:17)
[2018-05-21] MEDS ORDERED: ONDANSETRON 4 MG INJ IV STA (06:17)
[2018-05-21] MEDS ORDERED: SOD CHLORIDE 0.9% 1,000 ML IV STA (06:17)
--- NOTE | 2018-05-21 06:17 | ERD ---
ER Documentation Chief Complaint Chief Complaint HPI This is a 77-year-old woman referred here by her neurosurgeon Dr. Connors for cont inued purulent drainage from the posterior cervical incision site status post cervical discectomy and fusion. Patient describes thick purulent discharge for the last few days and increasing pain and swelling. He denies fevers or chills, no difficulty swallowing, no complaints of chest pain or shortness of breath. ROS All systems reviewed and are negative except as per history of present illness. Medications Home Meds Active Scripts Vancomycin/0.9 % Sod Chloride (Vanco 750 mg/150 ml-0.9% NaCl) 750 Mg/150 Ml Froz.piggy, 750 MG IV DAILY for 14 Days Prov:MARCO MYERS MD 05/22/18 [Vancomycin Iv Per Pharmacy] 1 EA EACH No Conflict Check, 0 EA XX .PER PROTOCOL for 14 Days Prov:MARCO MYERS MD 05/22/18 Xnhxqfgurckz-Loue-Uhtzcsqw,Iso (ZOSYN 3.375 GM GALAXY BAG) 3.375 Gm/50 Ml Froz.piggy, 3.375 GM IVPB Q8 for 14 Days, EA Prov:MARCO MYERS MD 05/22/18 Docusate Sodium* (Colace*) 100 Mg Capsule, 100 MG PO BID for 10 Days, CAP Prov:MARCO MYERS MD 05/09/18 Bisacodyl (Dulcolax) 10 Mg Supp.rect, 10 MG MD DAILY PRN for .CONSTIPATION for 10 Days, SUPP.RECT Prov:MARCO MYERS MD 05/09/18 Tramadol HCl (Tramadol HCl) 50 Mg Tablet, 50 MG PO Q4H PRN for .PAIN 1-5 for 10 Days, TAB Prov:MARCO MYERS MD 05/09/18 Hydrocodone/Acetaminophen (Hydrocodone-Acetamin 10-325 mg) 1 Each Tablet, 2 TAB PO Q6H for 10 Days, TAB Prov:MARCO MYERS MD 05/09/18 Cyclobenzaprine Hcl* (Cyclobenzaprine Hcl*) 10 Mg Tablet, 5 MG PO TID PRN for .MUSCLE SPASM for 10 Days, TAB Prov:MARCO MYERS MD 05/09/18 Carvedilol* (Coreg*) 3.125 Mg Tablet, 3.125 MG PO BID, #60 TAB Prov:GUANACO BIRD MD 05/26/17 Reported Medications Hydrocodone/Acetaminophen ([place] 5-325 Tablet) 1 Each Tablet, 1 EACH PO, TAB 05/26/17 Amlodipine Besylate* (Norvasc*) 5 Mg Tablet, 5 MG PO BID, TAB 05/14/16 Allergies Allergies: Coded Allergies: Iodine and Iodide Containing Produc (Verified Adverse Reaction, Severe, HYPOTENSION, BREATHING DIFFICULTY, 05/21/18) PMhx/Soc Hypertension, history of urinary retention, status post anterior cervical discectomy and fusion of C3 through T1, cervical cancer status post hysterectomy History of Surgery: Yes (NECK SURGERY 2017) Anesthesia Reaction: No Hx Neurological Disorder: No Hx Respiratory Disorders: No Hx Cardiac Disorders: No Hx Psychiatric Problems: No Hx Miscellaneous Medical Probl: Yes (MALNUTRITION?) Hx Alcohol Use: No (RED WINE W/ FOOD) Hx Substance Use: No Hx Tobacco Use: No Physical Exam Vitals Vital Signs Date Temp Pulse Resp B/P (MAP) Pulse Ox O2 O2 Flow FiO2 Time Delivery Rate 05/21/18 98.7 63 18 144/70 98 06:16 (94) Physical Exam Const: No acute distress, afebrile HEENT: Thick purulent discharge from the surgical site at the posterior neck, with soft tissue edema and active drainage. Resp: Clear to auscultation bilaterally Cardio: Regular rate and rhythm, no murmurs Abd: Soft, non tender, non distended. Skin: No petechiae or rashes Back: No midline or flank tenderness Ext: No cyanosis, or edema Neur: Awake and alert x3, no focal deficits or facial asymmetry Psych: Normal Mood and Affect Result Diagram: 05/21/18 0634 05/21/18 0634 Results 24 hrs Laboratory Tests Test 05/21/18 06:34 White Blood Count 10.0 10^3/ul Red Blood Count 3.27 10^6/ul Hemoglobin 9.5 g/dl Hematocrit 29.6 % Mean Corpuscular Volume 90.5 fl Mean Corpuscular Hemoglobin 29.1 pg Mean Corpuscular Hemoglobin Concent 32.1 g/dl Red Cell Distribution Width 14.0 % Platelet Count 582 10^3/UL Mean Platelet Volume 8.6 fl Immature Granulocytes % 1.300 % Neutrophils % 82.0 % Lymphocytes % 6.8 % Monocytes % 7.8 % Eosinophils % 1.7 % Basophils % 0.4 % Nucleated Red Blood Cells % 0.0 /100WBC Immature Granulocytes # 0.130 10^3/ul Neutrophils # 8.2 10^3/ul Lymphocytes # 0.7 10^3/ul Monocytes # 0.8 10^3/ul Eosinophils # 0.2 10^3/ul Basophils # 0.0 10^3/ul Nucleated Red Blood Cells # 0.0 10^3/ul Prothrombin Time 12.6 Sec Prothrombin Time Ratio 1.0 INR International Normalized Ratio 0.93 Activated Partial Thromboplast Time 27.8 Sec Sodium Level 137 mmol/L Potassium Level 4.4 mmol/L Chloride Level 100 mmol/L Carbon Dioxide Level 29 mmol/L Anion Gap 8 Blood Urea Nitrogen 9 mg/dl Creatinine 0.60 mg/dl Est Glomerular Filtrat Rate mL/min mL/min Glucose Level 107 mg/dl Calcium Level 8.8 mg/dl Total Bilirubin 0.0 mg/dl Direct Bilirubin 0.00 mg/dl Indirect Bilirubin 0.0 mg/dl Aspartate Amino Transf (AST/SGOT) 18 IU/L Alanine Aminotransferase (ALT/SGPT) 30 IU/L Alkaline Phosphatase 148 IU/L Total Protein 6.0 g/dl Albumin 3.0 g/dl Globulin 3.00 g/dl Albumin/Globulin Ratio 1.00 Lipase 130 U/L Current Medications Medications Dose Sig/Everardo Start Time Status Last (Trade) Ordered Route PRN Stop Time Admin Dose Reason Admin Sodium 1,000 ml @ Q1H STAT 05/21/18 DC 05/21/18 Chloride 1,000 mls/hr IV 06:17 05/21/18 06:53 07:16 Morphine 4 mg ONCE STAT 05/21/18 DC 05/21/18 Sulfate IV 06:17 05/21/18 06:53 (morphine) 06:19 Ondansetron 4 mg ONCE STAT 05/21/18 DC 05/21/18 HCl (Zofran IV 06:17 05/21/18 06:53 Inj) 06:19 Vancomycin 250 ml @ ONCE ONCE 05/21/18 DC 05/21/18 HCl 125 mls/hr IVPB 06:30 05/21/18 07:26 08:29 Piperacillin 100 ml @ ONCE ONCE 05/21/18 DC 05/21/18 Sod/ 200 mls/hr IVPB 06:30 05/21/18 06:53 Tazobactam 06:59 Sod Procedures/MDM IV line was established patient was placed on monitor and storage bin tender rhythm strip revealed a sinus rhythm at about 80 bpm with upright P and T waves. Patient was afebrile I administered vancomycin 1 g IV and Zosyn 3.375 g IV. CBC revealed mild anemia, electrolytes normal, coagulation profile normal I spoke to the patient's neurosurgeon Dr. Connors and he agreed to plan to admit until prepped for intraoperative therapy. Patient admitted to health insurance directed physician to [facility]. Departure Diagnosis: Primary Impression: Post-operative wound abscess Condition: LON Mcgrath MD May 21, 2018 06:17
[2018-05-21] MEDS ORDERED: PIPER-TAZO 3.375 GM IV (PMX) 100 ML IVPB ONE (06:30)
[2018-05-21] MEDS ORDERED: VANCOMYCIN 1 GM (PMX) 250 ML IVPB ONE (06:30)
[2018-05-21] MEDS ORDERED: PROPOFOL 200 MG INJ ONE (07:00)
[2018-05-21] MEDS ORDERED: LIDOCAINE 2% (SDV) 5 ML INJ ONE (07:00)
[2018-05-21] MEDS ORDERED: CEFAZOLIN 1 GM INJ ONE (07:00)
[2018-05-21] MEDS ORDERED: SUCCINYLCHOLINE CHLORIDE 100 MG/5 ML SYG IV ONE (07:00)
[2018-05-21] MEDS ORDERED: ALBUMIN HUMAN 25% 100 ML INJ ONE (07:00)
[2018-05-21] MEDS ORDERED: ONDANSETRON 4 MG INJ ONE (07:00)
[2018-05-21] MEDS ORDERED: SOD CHLORIDE 0.9% 100 ML ONE (07:55)
[2018-05-21] MEDS ORDERED: IODIXANOL LOCM 100 ML BTL ONE (07:55)
[2018-05-21] MEDS ORDERED: DIPHENHYDRAMINE 50 MG INJ IV ONE (08:00)
[2018-05-21] MEDS ORDERED: traMADol 50 MG TAB PO PRN (10:30)
[2018-05-21] MEDS ORDERED: BISACODYL 10 MG SUPP PR PRN (10:30)
[2018-05-21] MEDS ORDERED: VANCOMYCIN IV PER PHARMACY XX SCH (10:30)
[2018-05-21] MEDS ORDERED: CYCLOBENZAPRINE 10 MG TAB PO PRN (10:30)
[2018-05-21] MEDS: AMLODIPINE 5 MG TAB PO SCH ×2 (11:00→20:34)
[2018-05-21] MEDS: DOCUSATE SODIUM 100 MG CAP PO SCH ×2 (11:00→20:33)
[2018-05-21] MEDS: PIPER-TAZO 3.375 GM IV (PMX) 100 ML IVPB SCH ×2 (14:14→21:42)
[2018-05-21] MEDS ORDERED: FENTAnyl 50 MCG/ML VIAL ONE (14:41)
[2018-05-21] MEDS ORDERED: METOCLOPRAMIDE 10 MG INJ ONE (14:42)
[2018-05-21] MEDS ORDERED: MIDAZOLAM 1 MG/ML 2 ML INJ ONE (14:42)
[2018-05-21] MEDS ORDERED: SUGAMMADEX SODIUM 200 MG/2 ML VIAL IV ONE (14:49)
--- NOTE | 2018-05-21 15:01 | CONS ---
Assessment/Plan Assessment/Plan Assessment/Plan (Daily) Date of consultation: 05/21/2018 Requesting physician:Dr. Caldera with the emergency department Consulting service: Neurosurgery This is a 77-year-old female who underwent stage II of 2 surgery two weeks ago that involved C3-T2 posterior instrumented fusion. The patient did well postoperatively and was [facility] to her wishes. The patient had initially indicated that she was to stay with her daughter postoperatively but apparently her plans changed. Approximately 3 or 4 days ago, the nursing facility contacted me indicating that there was some "serous" discharge from the patient's incision that was noted the same day. There was no noted purulent drainage, erythema around the incision or fever or chills. The patient was working with physical therapy and starting to ambulate again. In order to be cautious, I asked that nurse at the facility to start the patient empirically on Keflex and to make arrangements for the patient to see me in clinic the next day for further evaluation. The patient's pain medications at the time that were [place] and tramadol also seemed not to be adequately treating the patient's postsurgical pain and after I checked the patient's records on the [employer] database, and it turned out that the patient had been using Percocet/oxycodone on a regular basis throughout 2018 preoperatively. Given this finding, I asked the nurse to change the patient's pain medication to Percocet that turned out to treat the patient's pain much more effectively. I saw the patient in clinic the next day and after examination of the patient's wound, there was no gross dehiscence of the wound, there was mild sofie-incisio nal erythema with a small amount of possible purulent drainage. Given this finding, I gave strict orders to start the patient on IV antibiotics including Zosyn and cefepime, to start wet-to-dry dressing changes 3 times a day and to give me an update the next day on how the patient's incision was doing. I also personally updated the patient's son, Kurt who lives in [place] regarding his mother's condition. The patient's daughter was not available. The next day (yesterday, Wednesday) my office and I were on the phone with the patient's nursing facility for over an hour trying to find out the patient's status and initially after talking to one nurse we were told that the patient's incision was looking better and the drainage had significantly decreased. However, later that day talking to a different nurse we were told that the patient still had some drainage from her incision but the patient clinically was doing well without fevers or chills, pain well controlled and the patient working with physical therapy. Given this discrepancy on the reports given by the nurses throughout the same day, I asked the facility to update me again early this morning (Wednesday) and if the patient still had issues with her incision, to make arrangements to send the patient to the emergency department for further evaluation and management. I was not updated again about the patient's condition by the nursing facility. However, instead it turns out that the facility directly send the patient to the emergency department earlier this morning. The emergency room physician, Dr. Caldera started the workup including CBC that did not show leukocytosis and CT of the neck/cervical spine that showed a possible subcutaneous abscess. I was subsequently contacted by Dr. Caldera. The patient's prior history that necessitated undergoing a two-stage cervicothoracic spine surgery with instrumented fusion dates back to a year ago. At the time, she developed new onset lower extremities numbness and weakness and difficulty ambulation just over a year ago. She was found to have a T4/T5 sensory deficit level as well as a right foot drop and right lower extremity weakness more than the left. The patient subsequently underwent extensive workup by neurology both at [facility] as well as [facility] and she was not found to have evidence of other conditions such as Guillain-Epps syndrome, CIDP or other underlying neurologic condition. The consensus was that the patient's above symptomatology was likely related to her multilevel cervical and cervicothoracic stenosis. The patient successfully underwent a C3-T1 multilevel anterior cervical discectomy and instrumented fusion almost a year ago. The patient postoperatively did very well and has over time regained sensation in her lower extremities and is now able to ambulate again with a front wheel walker. The patient's neck pain has subsequently been improving postoperatively. As had been discussed with the patient preoperatively, she would likely need to undergo the second stage of the operation that would be posterior instrumented fusion from C3-T2 as anterior instrumentation alone for 5 level cervicothoracic fusion would likely result in pseudoarthrosis and possible hardware failure. The patient for various reasons including personal reasons has been putting off postoperative clinic visits and at the second stage of her surgery has been postponed multiple times due to personal reasons as well as insurance authorization. In the meantime, a follow-up x-ray that we obtained outpatient showed a subtle backing out of the middle part of the anterior plate and some migration of the anterior plate inferiorly towards the T1-T2 disc space that could indicate very early signs of pseudoarthrosis and the hardware backing out. This finding was not noted in the radiology report. In order to prevent any significant hardware pullout/hardware failure, the second stage of the prev iously planned operation was performed 2 weeks ago. Past medical history: Please see above, hypertension, history of cervical cancer status post hysterectomy Allergies: Gadolinium contrast? Review of systems: Patient denies chest pain, shortness of breath, heartburn, weakness or numbness of her upper or lower extremities, fevers or chills, nausea or vomiting. Family history: Not contributory Social history: Denies EtOH, tobacco, illicit or recreational drugs. Physical examination: This is a elderly female sitting up on the hospital bed. Patient is awake alert and oriented 4. Language is fluent. Face is symmetric. Extraocular movements are grossly normal. Pupils are equally round and reactive to light bilaterally. Shoulder shrugs are symmetric. Muscle bulk and tone is normal bilateral upper and lower extremities. Deep tendon reflexes are 1+ bilateral upper and lower ex tremities. Sensation to light touch involving bilateral calves, dorsum and plantar surface of feet is mildly decreased compared to bilateral upper extremities (similar to previous baseline). Motor strength is 4+ out of 5 bilateral upper and lower extremities. There is no Bacilio sign present bilaterally. There is no dysdiadochokinesia bilaterally. There is no dysmetria bilaterally. Toes are downgoing bilaterally. Gait testing has been deferred per patient request. CERVICAL SPINE: Examination of the cervical spine reveals reveals some purulent discharge on the dressing. There is some sofie-incisional erythema at the cervi cothoracic incision. There is no wound dehiscence. THORACIC SPINE: Please see above. Imaging: CT of neck with contrast and CT of cervical spine without contrast: There appears to be probable subcutaneous ring-enhancing area that could possibly be an abscess. There is also some subfascial air in the upper posterior cervical region near the C3 lamina. The patient's cervical and cervicothoracic alignment is maintained. The patient's hardware appears to be in stable position. The left T2 pedicle screw appears to be lateral in position but none of the hardware is medial or close to the spinal canal. Assessment/plan: I have discussed the above findings in detail with the patient. Given the purulent drainage from the patient's incision, I would recommend debridement of the patient's wound as soon as possible that would also likely require placement of drains that can help with further healing postoperatively. The patient will also require postoperative IV antibiotics. I have discussed the risks and benefits of the above operation in detail with the patient with the risks including bleeding, infection, weakness, numbness, paralysis, bowel or bladder dysfunction, cerebrospinal fluid leak, failure of improvement of symptoms or worsening of her symptoms, need for further surgeries including redo debridement or redo fusion/instrumentation or need for extension of the fusion as well as those risks associated with surgery and general anesthesia including heart attack, stroke, deep venous thrombosis, pulmonary embolism, pneumonia or . The patient fully understands the above discussion and wishes to proceed with the surgery as soon as possible. GRANT PALMA MD May 21, 2018 15:01
[2018-05-21] MEDS ORDERED: BACITRACIN 50000 UNITS INJ ONE (15:31)
[2018-05-21] MEDS ORDERED: POLYMYXIN B 500000 UNIT INJ ONE (15:33)
--- NOTE | 2018-05-21 15:38 | PREAC ---
Date/Time of Note Date/Time of Note DATE: 05/21/18 TIME: 15:36 Anesthesia Eval and Record Evaluation Time Pre-Procedure Interview DATE: 05/21/18 TIME: 15:36 Age 77 Sex female NPO: 8 hrs Preoperative diagnosis cervicothoracic incision infection Planned procedure incision and drainage of incision infection Past Medical History Past Medical History: None Cardio: HTN Neuro: Peripheral neuropathy, Other (spinal stenosis) Surgery & Anesthesia Issues No known issue Meds Anticoagulation: No Beta Johnathan within 24 hr: Yes Active Scripts Docusate Sodium* (Colace*) 100 Mg Capsule, 100 MG PO BID for 10 Days, CAP Prov:MARCO MYERS MD 05/09/18 Bisacodyl (Dulcolax) 10 Mg Supp.rect, 10 MG MN DAILY PRN for .CONSTIPATION for 10 Days, SUPP.RECT Prov:MARCO MYERS MD 05/09/18 Tramadol HCl (Tramadol HCl) 50 Mg Tablet, 50 MG PO Q4H PRN for .PAIN 1-5 for 10 Days, TAB Prov:MARCO MYERS MD 05/09/18 Hydrocodone/Acetaminophen (Hydrocodone-Acetamin 10-325 mg) 1 Each Tablet, 2 TAB PO Q6H for 10 Days, TAB Prov:MARCO MYERS MD 05/09/18 Cyclobenzaprine Hcl* (Cyclobenzaprine Hcl*) 10 Mg Tablet, 5 MG PO TID PRN for .MUSCLE SPASM for 10 Days, TAB Prov:MARCO MYERS MD 05/09/18 Carvedilol* (Coreg*) 3.125 Mg Tablet, 3.125 MG PO BID, #60 TAB Prov:GUANACO BIRD MD 05/26/17 Reported Medications Hydrocodone/Acetaminophen ([place] 5-325 Tablet) 1 Each Tablet, 1 EACH PO, TAB 05/26/17 Amlodipine Besylate* (Norvasc*) 5 Mg Tablet, 5 MG PO BID, TAB 05/14/16 Current Medications Amlodipine Besylate (Norvasc) 5 mg BID PO ; Start 05/21/18 at 11:00 Bisacodyl (Dulcolax Supp) 10 mg DAILY PRN [place] .CONSTIPATION; Start 05/21/18 at 10:30 Carvedilol (Coreg) 3.125 mg BID PO ; Start 05/21/18 at 11:00 Cyclobenzaprine HCl (Flexeril) 5 mg TID PRN PO .MUSCLE SPASM; Start 05/21/18 at 10:30 Docusate Sodium (Colace) 100 mg BID PO ; Start 05/21/18 at 11:00 Acetaminophen/ Hydrocodone Bitart ([place] (10/325)) 2 tab Q6H PRN PO PAIN LEVEL 6-10; Start 05/21/18 at 10:30 Tramadol HCl (Ul[place]am) 50 mg Q4H PRN PO .PAIN 1-5; Start 05/21/18 at 10:30 Vancomycin HCl (Vanco Iv Per Pharmacy) VANCOMYCIN PER PHARMACY PER PROTOCOL XX ; Start 05/21/18 at 10:30 Piperacillin Sod/ Tazobactam Sod 100 ml @ 200 mls/hr Q8 IVPB Last administered on 05/21/18at 14:14; Admin Dose 200 MLS/HR; Start 05/21/18 at 14:00 Vancomycin/Sodium Chloride 250 ml @ 125 mls/hr Q24H IVPB ; Start 05/22/18 at 05:00 Meds reviewed: Yes Allergies Coded Allergies: Iodine and Iodide Containing Produc (Verified Adverse Reaction, Severe, HYPOTENSION, BREATHING DIFFICULTY, 05/21/18) Allergies Reviewed: Yes Labs/Studies Labs Reviewed: Reviewed by anesthesiologist Result Diagram: 05/21/18 0634 05/21/18 0634 Laboratory Tests 05/21/18 06:34 test: Negative Studies: ECG, CXR Pre-procedure Exam Last vitals Vital Signs Date Temp Pulse Resp B/P (MAP) Pulse Ox O2 O2 Flow FiO2 Time Delivery Rate 05/21/18 98.5 83 16 140/75 98 10:23 (96) 05/21/18 Nasal 08:34 Cannula Airway: Adequate mouth opening, Adequate thyromental dist Mallampati: Mallampati III Teeth: Normal Lung: Normal Heart: Normal ASA Physical Status ASA physical status: 3 Emergency: E Planned Anesthetic General/MAC: ETT Planned Pain Management Parenteral pain med, Local by surgeon Pre-operative Attestations Prior to commencing anesthesia and surgery, the patient was re-evaluated, there was verification of: *The patient's identity *The results of appropriate recent lab work and preoperative vital signs *The above evaluation not changing prior to induction *Anesthetic plan, risk benefits, alternative and complications discussed with patient/family; questions answered; patient/family understands, accepts and wishes to proceed. RONNIE VIDES MD May 21, 2018 15:38
[2018-05-21] MEDS ORDERED: LABETALOL HCL 20MG INJ IV PRN (16:00)
[2018-05-21] MEDS ORDERED: HYDROmorphONE 1 MG/5 ML IV SYRINGE IV PRN ×3 (16:00)
[2018-05-21] MEDS ORDERED: DIPHENHYDRAMINE 50 MG INJ IV PRN (16:00)
[2018-05-21] MEDS ORDERED: IPRATROPIUM (NEB) 0.5 MG/2.5 ML AMP HHN PRN (16:00)
[2018-05-21] MEDS ORDERED: ONDANSETRON 4 MG INJ IV PRN (16:00)
[2018-05-21] MEDS ORDERED: MEPERIDINE 25 MG INJ IV PRN (16:00)
[2018-05-21] MEDS ORDERED: FENTAnyl 50 MCG/ML VIAL IV PRN (16:00)
[2018-05-21] MEDS ORDERED: hydrALAzine 20 MG INJ IV PRN (16:00)
[2018-05-21] MEDS ORDERED: LEVALBUTEROL (NEB) 1.25 MG/0.5 ML AMP HHN PRN (16:00)
[2018-05-21] MEDS ORDERED: PHENYLephrine (100 MCG/ML) 5ML SYG ONE (16:03)
--- NOTE | 2018-05-21 16:33 | HP ---
DATE OF ADMISSION: 05/21/2018 REASON FOR VISIT: Persistent neck pain. Purulent drainage. HOSPITAL COURSE: A 77-year-old female status post multilevel cervical laminectomy on 05/07/2018 by Santhosh Palma, was referred to Emergency Room for admission. The patient reports having persistent n williams pain and discomfort. She was noted to have purulent drainage from the site of incision at the fa cility. Dr. Palma is planning to take her to the operating room for I and D of a possible abscess. The patient denies any fevers or chills. She denies any focal weakness or numbness. PAST MEDICAL HISTORY: 1. Cervical stenosis. 2. Hypertension. 3. History of cervical cancer status post hysterectomy. PAST SURGICAL HISTORY: Status post cervical diskectomy and fusion on 05/07/2018. MEDICATIONS PRIOR TO ADMISSION: 1. Tramadol. 2. [place]. 3. Coreg. 4. Amlodipine. 5. Flexeril. PHYSICAL EXAMINATION: GENERAL: Well-developed, well-nourished elderly female who is in mild distress. VITAL SIGNS: Stable. She is afebrile. HEENT: Extraocular muscles intact. Pupils are equal and reactive to light bilaterally. Sclerae are anicteric. Oropharynx is clear and moist. NECK: Cervical collar in place. LUNGS: Clear to auscultation bilaterally. CARDIAC: Regular rate and rhythm. No murmurs, rubs or gallops. ABDOMEN: Soft, nontender, nondistended, normoactive bowel sounds. EXTREMITIES: No clubbing, cyanosis or edema. NEUROLOGICAL: Grossly nonfocal. LABORATORY DATA: White blood cell count 10, hemoglobin 9.5, platelet count is 582,000. Basic metabo lic panel is within normal limits. IMAGING DATA: CAT scan of the cervical spine showed fluid collection with air bubble located in the soft tissue of the posterior midline at the C6-C7 interspinous level extending to at least the T3 lev el, measuring approximately 3.7 x 3.4 x 3.3 cm. Gas bubbles are located posterior to the bilateral C 3 lamina tending to the C5 level. ASSESSMENT: 1. A 77-year-old female with postoperative cervical spine abscess. 2. Status post multilevel cervical laminectomy and fusion on 05/07/2018. 3. Hypertension. PLAN: 1. Admit to Med-Surg. Keep patient n.p.o. IV vancomycin and Zosyn. 2. Oncall to operating room per Dr. Palma for I and D of abscess. Dictated By: MARCO PINEDA/NTS Conf#: [id number] DID#: [id number] CC: GRANT PALMA MD;*EndCC*
[2018-05-21] MEDS ORDERED: VANCOMYCIN 1 GM INJ ONE ×2 (16:38→16:49)
[2018-05-21] MEDS ORDERED: NALOXONE (0.4 MG/ML) INJ IV PRN (18:00)
--- NOTE | 2018-05-21 18:07 | SIPON ---
Date/Time of Note Date/Time of Note DATE: 05/21/18 TIME: 18:05 Operative Report Preoperative Diagnosis Cervicothoracic wound infection Postoperative Diagnosis Same as above Operation/Procedure Performed 1) I&D of wound and evacuation of subfascial abscess 2) redo C3 to T2 posterior arthrodesis with allo bone graft Surgeon see signature line pharmacy affairs assistant None Anesthesia: general Estimated blood loss: 10 - 50 ml's (25cc) Transfusion Required none Specimen Wound cultures x2 Grafts/Implants See Op report Complications none GRANT PALMA MD May 21, 2018 18:07
--- NOTE | 2018-05-21 18:40 | PAC ---
Date/Time of Note Date/Time of Note DATE: 05/21/18 TIME: 18:40 Post-Anesthesia Notes Post-Anesthesia Note Last documented vital signs Vital Signs Date Temp Pulse Resp B/P (MAP) Pulse Ox O2 O2 Flow FiO2 Time Delivery Rate 05/21/18 98.5 83 16 140/75 98 10:23 (96) 05/21/18 Nasal 08:34 Cannula Activity: WNL Respiratory function: WNL Cardiovascular function: WNL Mental status: Baseline Pain reasonably controlled: Yes Hydration appropriate: Yes Nausea/Vomiting absent: Yes RONNIE VIDES MD May 21, 2018 18:40
[2018-05-21] MEDS ORDERED: HALOPERIDOL 5 MG INJ ONE (18:41)
[2018-05-21] MEDS: FENTAnyl 50 MCG/ML VIAL IV PRN ×4 (18:50→19:34)
[2018-05-21] MEDS ORDERED: HALOPERIDOL 5 MG INJ IV ONE (19:00)
[2018-05-21] MEDS: D5W-0.45 NACL + KCL 20 MEQ 1,000 ML IV SCH (20:33)
[2018-05-21] MEDS: HYDROCODONE/APAP (10/325) TAB PO PRN (20:38)
--- NOTE | 2018-05-21 20:44 | OPR ---
Date/Time of Note Date/Time of Note DATE: 05/21/18 TIME: 20:44 Operative Report Procedure Date: May 21, 2018 Preoperative Diagnosis See below. Postoperative Diagnosis See below. Operation/Procedure Performed See below. Surgeon see signature line Treatment Supervisor None Anesthesia Type: general Estimated Blood Loss: 10 - 50 ml's Transfusion none Specimen See below. Grafts/Implants See below. Tubes/Drains See below. Complications none Pt Condition Post Procedure: stable Disposition: PACU Procedure Description Date of operation: 05/21/2018 Operating surgeon: Grant Connors M.D. Preoperative diagnosis: Cervicothoracic wound infection with subfascial abscess Post operative diagnosis: Cervicothoracic wound infection with subfascial abscess Procedure(s) performed: 1. Incision and debridement of cervicothoracic wound 2. Evacuation of subfascial abscess 3. Redo C3-T2 posterior arthrodesis 4. Placement of morcellized allograft (demineralized bone matrix putty and cancellous bone chips) Indication for procedure: Please acute inpatient consultation note for a full set of indications. Description of operative procedure: The patient was brought to the operating room and after general anesthesia was obtained, she was placed prone onto chest rolls and her head was placed on the horseshoe. Her arms were tucked by her side and all pressure points were noted and padded appropriately. The dressing over the patient cervicothoracic incision was removed. There was purulent material on the dressing and there was sofie-incisional erythema noted. There was no obvious wound dehiscence. After the wound was prepped and draped under standard sterile fashion, the incision was then opened up superficially at the level of the dermis. Purulent material was seen in the subcutaneous space. Culture swabs were then obtained for microbiology including aerobic and anaerobic, fungus, and TB culture. This purulent material was then removed. The fascial layer that appeared to be already partly dehisced was completely opened up. Th ere was more purulent material the subfascial space. The patient's spinous processes and lamina and the posterior instrumentation were fully exposed. The posterior instrumentation was grossly intact. All the previously placed bone graft material over the previously decorticated surfaces was then completely removed as these grafts could be affected. The adjacent soft tissue layers including the muscles were then fully debrided until fully viable bleeding surfaces were achieved. The wound was then copiously irrigated with 3 L of antibiotic solution using pulse lavage. Next, the posterior bony surfaces including the facets from C3 down to T2 where again decorticated. Vancomycin powder was then placed inside the wound and over the soft tissue surfaces. A combination of new morcellized allograft material including demineralized bone matrix putty and cancellus bone chips were then placed over the decorticated surfaces bilaterally. Then a medium flat and a medium round LUKE drain was placed in the subfascial space and the other end of the drains was brought out the skin away from the incision site. The muscle layers were then reapproximated to the spinous processes with interrupted sutures. The fascial layer was then reapproximated with interrupted sutures. A medium round and the medium flat LUKE drain was then placed in the epifascial space and the other end of the drain was brought out the skin away from the incision site. The dermal layer was then reapproximated with interrupted sutures. The skin was reapproximated with running interlocking nylon 2-0 suture. The drains were then connected to LUKE bulbs in place to full suction. The drains were secured to the skin at the exit site with a suture. A sterile dressing was placed on top of the incision site. The patient was then placed supine on the hospital bed. She was then woken up, extubated and transported to the recovery room in stable condition. The patient was awake and alert and moving her upper and lower extremities equally to command in the recovery room and appeared to be comfortable. The patient may be discharged to a new rehab facility from a neurosurgical perspective tomorrow with the [address] for the next 10-14 days. The patient needs to be continued on IV antibiotics for the next 2 weeks. She will follow-up with me in clinic in the next 2 weeks. I will communicate this information to the patient's admitting hospitalist, Dr. Scherer. Estimated blood loss: 25 cc Blood products administered: None Packs/drains: LUKE drains 4 (subfascial 2, epifascial 2) Type of anesthesia: General Incision: Midline cervicothoracic Skin closure: Running interlocking 2-0 nylon suture Wound classification: Clean contaminated Specimen removed: Subcutaneous purulent material Patient's condition: Stable Prognosis: Good GRANT CONNORS MD May 21, 2018 20:44
[2018-05-22] MEDS: HYDROCODONE/APAP (10/325) TAB PO PRN ×3 (02:16→15:39)
[2018-05-22 02:31] VITALS: BP 115/56; PULSE 83; RESP 19
[2018-05-22] MEDS: D5W-0.45 NACL + KCL 20 MEQ 1,000 ML IV SCH ×2 (03:58→13:40)
[2018-05-22] MEDS ORDERED: VANCOMYCIN 750 MG (PMX) 250 ML IVPB SCH (05:00)
[2018-05-22] MEDS: PIPER-TAZO 3.375 GM IV (PMX) 100 ML IVPB SCH ×2 (07:02→15:35)
[2018-05-22 07:41] VITALS: BP 118/57; PULSE 70; RESP 16
[2018-05-22] MEDS: DOCUSATE SODIUM 100 MG CAP PO SCH (08:37)
[2018-05-22] MEDS: AMLODIPINE 5 MG TAB PO SCH (08:37)
[2018-05-22] MEDS ORDERED: VANC750F2 IV (10:10)
[2018-05-22] MEDS ORDERED: Vancomycin Iv Per Pharmacy XX (10:10)
[2018-05-22] MEDS ORDERED: PIPE3.374 IVPB (10:10)
--- NOTE | 2018-05-22 10:11 | PDOCDIS ---
Discharge Instructions CONDITION [id number] Patient Condition: [id number] Fair HOME CARE INSTRUCTIONS: [id number] Diet Instructions: [id number] y FOLLOW UP/APPOINTMENTS Follow-up Plan Dr Connors 2 weeks MARCO MYERS MD May 22, 2018 10:11
[2018-05-22] MEDS ORDERED: LIDOCAINE 1% (MPF) 5 ML VIAL SC ONE ×2 (10:30)
--- NOTE | 2018-05-22 13:49 | DS ---
DATE OF ADMISSION: 05/21/2018 DATE OF DISCHARGE: 05/22/2018 DISCHARGE DIAGNOSES: 1. A 77-year-old female status post multilevel cervical laminectomy and fusion on 05/07/2018. 2. Post-op subfascial abscess. 3. Status post I and D of wound and evacuation of subfascial abscess. 4. Status post redo C3 to T2 posterior arthrodesis with aloe bone graft. 5. Hypertension. HOSPITAL COURSE: A 77-year-old female status post multilevel cervical laminectomy and fusion on 04/[address] Grant Palma, was transferred to [facility] following the procedure. The patient had persistent neck pain and purulent drainage from the posterior aspect of the neck. She was found to have a subfascial abscess and fluid collection. The patient was readmitt ed. She was taken to the operating room by Dr. Palma and underwent incision and drainage of the woun d as well as evacuation of subfascial abscess. She underwent redo with C3 to T2 posterior arthrodesi s with aloe bone graft. There were no intraoperative or postoperative complications. Several drains were placed. The case was discussed with Dr. Palma. The patient is in a stable condition for disch arge to [facility] facility. She will need 14 days of IV vancomycin and Zosyn. PICC line place ment was ordered. The drains need to be emptied every 4 hours. The patient will follow up with Dr. Palma in 2 weeks. She was neurologically intact at the time of discharge. Dictated By: MARCO PINEDA/NTS Conf#: [id number] DID#: [id number] CC: GRANT PALMA MD;*EndCC*
[2018-05-22 15:26] VITALS: BP 121/57; PULSE 80; RESP 18
== END 2018-05-22 18:20 | DRG 857 ==
LOC: E/R 06:01 → 2NE 06:47
PROVIDERS: ADMIT Internal Medicine; ATTEND Internal Medicine
PROC: 0PR Upper Bones, Replacement (ICD-10-PCS; 2018-05-21)
PROC: 0PR Upper Bones, Replacement (ICD-10-PCS; principal; 2018-05-21 14:00)
PROC: 02HV33Z Insertion of Infusion Device into Superior Vena Cava, Percutaneous Approach (ICD-10-PCS; 2018-05-22)
PROC: B548ZZA Ultrasonography of Superior Vena Cava, Guidance (ICD-10-PCS; 2018-05-22)
DX: T81.42XA Infection following a procedure, deep incisional surgical site, initial encounter (principal); T81.32XA Disruption of internal operation (surgical) wound, not elsewhere classified, initial encounter; M72.8 Other fibroblastic disorders; I10 Essential (primary) hypertension; Z85.41 Personal history of malignant neoplasm of cervix uteri; Z90.710 Acquired absence of both cervix and uterus; Y83.9 Surgical procedure, unspecified as the cause of abnormal reaction of the patient, or of later complication, without mention of misadventure at the time of the procedure
CPT/HCPCS: 36415; 36569; 70491; 71045; 72125; 76937; 80053; 83690; 85025; 85610; 85730; 87040; 87070; 87075; 87081; 87102; 87116; 97162; C1762; J0690; J1200; J1630; J2250; J2270; J2370; J2405; J2543; J2765; J3010; J3370; J3480; J7030; P9047; Q9967

== ENCOUNTER 2018-06-07 16:40 | Emergency (ER) | payer OTHER, MEDICAID ==
[~2018-06-07] VITALS: Ht 162.6 cm; Wt 49.1 kg
[~2018-06-07 16:40] MED LIST changes: +PIPE3.374 IVPB; +VANC750F2 IV; +Vancomycin Iv Per Pharmacy XX
[2018-06-07] MEDS ORDERED: LIDOCAINE 1%/EPI (MDV) 50 ML INJ INJ ONE (17:00)
[2018-06-07 17:03] VITALS: Ht 162.6 cm; Wt 49.1 kg
[2018-06-07] MEDS ORDERED: LIDOCAINE 1%/EPI (1:100,000) (MDV) 20 ML INJ ONE (17:30)
--- NOTE | 2018-06-07 18:24 | ERD ---
ER Documentation Chief Complaint Chief Complaint LUKE removal from c spine surgery HPI Patient is a 77-year-old female with hypertension who presents with drains in the neck. The patient was brought in by ambulance. The patient had neck surgery 2 weeks ago and has had drains in the back of the neck. They were unabl e to be removed today at [facility]. Therefore she was sent to the ER for consultation with Dr. Connors her neurosurgeon. She has no complaints. Upon review of old medical records the patient has previous visits with admissions. She does have a primary doctor as well. ROS All systems reviewed and are negative except as per history of present illness. Medications Home Meds Active Scripts Vancomycin/0.9 % Sod Chloride (Vanco 750 mg/150 ml-0.9% NaCl) 750 Mg/150 Ml Froz.piggy, 750 MG IV DAILY for 14 Days Prov:MARCO MYERS MD 05/22/18 [Vancomycin Iv Per Pharmacy] 1 EA EACH No Conflict Check, 0 EA XX .PER PROTOCOL for 14 Days Prov:MARCO MYERS MD 05/22/18 Xkvsfttmypjr-Nkbn-Fcxprdrf,Iso (ZOSYN 3.375 GM GALAXY BAG) 3.375 Gm/50 Ml Froz.piggy, 3.375 GM IVPB Q8 for 14 Days, EA Prov:MARCO MYERS MD 05/22/18 Docusate Sodium* (Colace*) 100 Mg Capsule, 100 MG PO BID for 10 Days, CAP Prov:MARCO MYERS MD 05/09/18 Bisacodyl (Dulcolax) 10 Mg Supp.rect, 10 MG [place] DAILY PRN for .CONSTIPATION for 10 Days, SUPP.RECT Prov:MARCO MYERS MD 05/09/18 Tramadol HCl (Tramadol HCl) 50 Mg Tablet, 50 MG PO Q4H PRN for .PAIN 1-5 for 10 Days, TAB Prov:MARCO MYERS MD 05/09/18 Hydrocodone/Acetaminophen (Hydrocodone-Acetamin 10-325 mg) 1 Each Tablet, 2 TAB PO Q6H for 10 Days, TAB Prov:MARCO MYERS MD 05/09/18 Cyclobenzaprine Hcl* (Cyclobenzaprine Hcl*) 10 Mg Tablet, 5 MG PO TID PRN for .MUSCLE SPASM for 10 Days, TAB Prov:MARCO MYERS MD 05/09/18 Carvedilol* (Coreg*) 3.125 Mg Tablet, 3.125 MG PO BID, #60 TAB Prov:GUANACO BIRD MD 05/26/17 Reported Medications Hydrocodone/Acetaminophen ([place] 5-325 Tablet) 1 Each Tablet, 1 EACH PO, TAB 05/26/17 Amlodipine Besylate* (Norvasc*) 5 Mg Tablet, 5 MG PO BID, TAB 05/14/16 Allergies Allergies: Coded Allergies: Iodine and Iodide Containing Produc (Verified Adverse Reaction, Severe, HYPOTENSION, BREATHING DIFFICULTY, 05/21/18) PMhx/Soc History of Surgery: Yes (c spine x 2, hysterectomy, ureter stents ) Anesthesia Reaction: No Hx Neurological Disorder: No Hx Respiratory Disorders: No Hx Cardiac Disorders: Yes (htn) Hx Psychiatric Problems: No Hx Miscellaneous Medical Probl: Yes (cervical cancer) Hx Alcohol Use: Yes (RED WINE W/ FOOD) Hx Substance Use: No Hx Tobacco Use: No Smoking Status: Never smoker FmHx Family History: No diabetes Physical Exam Vitals Vital Signs Date Temp Pulse Resp B/P (MAP) Pulse Ox O2 O2 Flow FiO2 Time Delivery Rate 06/07/18 81 15 155/82 99 Room Air 18:03 (106) 06/07/18 97.8 93 15 158/92 99 17:03 (114) Physical Exam Const: No acute distress Head: Atraumatic Eyes: Normal Conjunctiva ENT: Normal External Ears, Nose and Mouth. Neck: Incision is clean, dry, and intact with [address] Resp: Clear to auscultation bilaterally Cardio: Regular rate and rhythm, no murmurs Abd: Soft, non tender, non distended. Normal bowel sounds Skin: No petechiae or rashes Back: No midline or flank tenderness Ext: No cyanosis, or edema Neur: Awake and alert Psych: Normal Mood and Affect Results 24 hrs Current Medications Medications Dose Sig/Everardo Start Time Status Last (Trade) Ordered Route PRN Stop Time Admin Dose Reason Admin Lidocaine/ 50 ml ONCE ONCE 06/07/18 DC Epinephrine INJ 17:00 (Xylocaine 06/07/18 17:01 1%/ Epi (Mdv)) Lidocaine/ 40 ml ONCE ONCE 06/07/18 DC Epinephrine INJ 17:30 (Xylocaine 06/07/18 17:31 1%/ Epi (Mdv) 20 ml) Procedures/MDM Patient is a 77-year-old female who presents with back drains. Dr. Connors came to the bedside and was able to remove the neck drains without difficulty. The patient will be discharged back to nursing facility. Departure Diagnosis: Primary Impression: Post-operative pain Condition: Fair Patient Instructions: Post Op Wound Check, General Referrals: GRANT CONNORS MD Additional Instructions: SPECIALIST: YOU HAVE A MEDICAL CONDITION WHICH REQUIRES YOU TO SEE A SPECIALI ST WITHIN THE NEXT 1-2 DAYS. PLEASE FOLLOW UP WITH YOUR PRIMARY PHYSICIAN FOR REFFERAL.IF YOU DO NOT HAVE A PRIMARY CARE PHYSICIAN AND/OR YOU CAN NOT AFFORD TO SEE A PHYSICIAN THE FOLLOWING RESOURCES HAVE BEEN SUPPLIED TO YOU. IT IS YOUR RESPONSIBILITY TO BE SEEN BY THE SPECIALIST JOSR CABELLO MD Jun 07, 2018 18:24
[2018-06-07 19:49] VITALS: BP 146/96; PULSE 84; RESP 16
--- NOTE | 2018-06-07 23:59 | CONS ---
Assessment/Plan Assessment/Plan Assessment/Plan (Daily) Date of consultation: 06/07/2018 Requesting physician:Dr. 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 The patient initially underwent the first stage of her cervicothoracic operation a year ago (C3-T1 anterior cervical discectomy and instrumented fusion) and underwent the second stage of her surgery approximately a month ago (C3-T2 posterior instrumented fusion). The patient developed a postsurgical wound infection and underwent debridement and placement of 4 wound drains two weeks ago. She was also treated with IV antibiotics. The patient's wound then started healing very well and she was evaluated by me in my clinic last week where the drain outputs had significantly diminished and her incision was clean dry and intact. I had put in a specific order for [facility] nursing staff to remove the patient's 4 drains (2 subfascial and 2 epifascial) 2 days ago (on Wednesday) and to remove the patient's incision sutures today. I was then contacted by the patient's physician at the jail facility earlier today letting me know that they were able to remove the sutures and 2 of the 4 drains today but they were having difficulty removing the last 2 drains and felt that the 2 drains were "scarred" and "stuck." Since I am not on staff at the patient's jail facility and in order to prevent any harm to the patient, I asked the facility to make arrangements to send the patient to the emergency department so that I can personally evaluate the patient. The patient has overall been doing very well since the debridement surgery over 2 weeks ago. Her postoperative pain has significantly diminished. The patient is smiling. She is ambulating with her front wheel walker and tells me that she feels stronger every day. She has not had any fevers or chills. She has not had any drainage from her incision. She denies any new weakness, numbness of her upper and lower extremities or decreased balance. Past medical history: Please see above, hypertension, history of cervical cancer status post hysterectomy Allergies: Gadolinium contrast? Review of systems: Patient denies chest pain, shortness of breath, heartburn, nausea or vomiting. Family history: Not contributory Social history: Denies EtOH, tobacco, illicit or recreational drugs. Physical examination: This is a elderly female sitting up on the gurney in the emergency room. Patient is awake alert and oriented 4. She is in no apparent distress. She is smiling. Language is fluent. Face is symmetric. Extraocular movements are grossly normal. Shoulder shrugs are symmetric. Muscle bulk and tone is normal bilateral upper and lower extremities. Deep tendon reflexes are 1+ bilateral upper and lower extremities. Sensation to light touch involving bilateral calves, dorsum and plantar surface of feet is mildly decreased compared to bilateral upper extremities (similar to previous baseline). Motor strength is 4+ out of 5 bilateral upper and lower extremities. There is no Bacilio sign present bilaterally. There is no dysdiadochokinesia bilaterally. Toes are downgoing bilaterally. The patient has a wide-based gait Per baseline. CERVICAL SPINE: Examination of the cervical spine reveals reveals a healing mid cervicothoracic incision with sutures removed and a few scattered Steri-Strips applied. There are 2 wound [address] in place in the superior part of the incision. There is no erythema or discharge from the wound. Imaging: There are no imaging studies available for my review. Assessment/plan: The patient seems to be doing quite well. The patient's 2 superior wound drains have been removed without any difficulty by me. The patient's incision has been completely clean. New Steri-Strips have been applied to all across the patient's mid cervicothoracic incision. A new Tegaderm dressing has been applied to the patient's cervicothoracic incision. The patient may be [facility] to [facility] facility. As soon as arrangements are made for home health nurse to help the patient at home, the patient may be discharged from the jail facility from a neurosurgery perspective. The PICC line that the patient has in place may be removed from my perspective. The patient is to be continued on the oral antibiotics that I had prescribed for her for the next 2 weeks. She is to follow-up with me in clinic in 2 weeks as previously had been planned. GRANT PALMA MD Jun 07, 2018 23:59
== END 2018-06-07 19:52 | disposition home or self-care (01) ==
LOC: E/R 16:40
DX: G89.18 Other acute postprocedural pain (principal); I10 Essential (primary) hypertension
CPT/HCPCS: 99282

== ENCOUNTER 2018-08-22 11:03 | Emergency (ER) | payer OTHER, MEDICAID ==
[~2018-08-22] VITALS: Ht 167.6 cm; Wt 60.0 kg
[2018-08-22 11:12] VITALS: Ht 167.6 cm; Wt 60.0 kg
--- NOTE | 2018-08-22 11:18 | ERD ---
ER Documentation Chief Complaint Chief Complaint chronic back pain hd back surgery in apr needs pain control ROS All systems reviewed and are negative except as per history of present illness. Medications Home Meds Active Scripts Vancomycin/0.9 % Sod Chloride (Vanco 750 mg/150 ml-0.9% NaCl) 750 Mg/150 Ml Froz.piggy, 750 MG IV DAILY for 14 Days Prov:MARCO MYERS MD 05/22/18 [Vancomycin Iv Per Pharmacy] 1 EA EACH No Conflict Check, 0 EA XX .PER PROTOCOL for 14 Days Prov:MARCO MYERS MD 05/22/18 Njjoxwpfrrly-Xbiy-Vfazpjbd,Iso (ZOSYN 3.375 GM GALAXY BAG) 3.375 Gm/50 Ml Froz.piggy, 3.375 GM IVPB Q8 for 14 Days, EA Prov:MARCO MYERS MD 05/22/18 Docusate Sodium* (Colace*) 100 Mg Capsule, 100 MG PO BID for 10 Days, CAP Prov:MARCO MYERS MD 05/09/18 Bisacodyl (Dulcolax) 10 Mg Supp.rect, 10 MG [place] DAILY PRN for .CONSTIPATION for 10 Days, SUPP.RECT Prov:MARCO MYERS MD 05/09/18 Tramadol HCl (Tramadol HCl) 50 Mg Tablet, 50 MG PO Q4H PRN for .PAIN 1-5 for 10 Days, TAB Prov:MARCO MYERS MD 05/09/18 Hydrocodone/Acetaminophen (Hydrocodone-Acetamin 10-325 mg) 1 Each Tablet, 2 TAB PO Q6H for 10 Days, TAB Prov:MARCO MYERS MD 05/09/18 Cyclobenzaprine Hcl* (Cyclobenzaprine Hcl*) 10 Mg Tablet, 5 MG PO TID PRN for .MUSCLE SPASM for 10 Days, TAB Prov:MARCO MYERS MD 05/09/18 Carvedilol* (Coreg*) 3.125 Mg Tablet, 3.125 MG PO BID, #60 TAB Prov:GUANACO BIRD MD 05/26/17 Reported Medications Hydrocodone/Acetaminophen ([place] 5-325 Tablet) 1 Each Tablet, 1 EACH PO, TAB 05/26/17 Amlodipine Besylate* (Norvasc*) 5 Mg Tablet, 5 MG PO BID, TAB 05/14/16 Allergies Allergies: Coded Allergies: Iodine and Iodide Containing Produc (Verified Adverse Reaction, Severe, HYPOTENSION, BREATHING DIFFICULTY, 05/21/18) PMhx/Soc History of Surgery: Yes (c spine x 2, hysterectomy, ureter stents ) Anesthesia Reaction: No Hx Neurological Disorder: No Hx Respiratory Disorders: No Hx Cardiac Disorders: Yes (htn) Hx Psychiatric Problems: No Hx Miscellaneous Medical Probl: Yes (cervical cancer) Hx Alcohol Use: Yes (RED WINE W/ FOOD) Hx Substance Use: No Hx Tobacco Use: No Physical Exam Vitals Vital Signs Date Temp Pulse Resp B/P (MAP) Pulse Ox O2 O2 Flow FiO2 Time Delivery Rate 08/22/18 98.2 80 18 146/70 98 11:12 (95) Physical Exam Const: No acute distress Head: Atraumatic Eyes: Normal Conjunctiva ENT: Normal External Ears, Nose and Mouth. Neck: Full range of motion. No meningismus. Resp: Clear to auscultation bilaterally Cardio: Regular rate and rhythm, no murmurs Abd: Soft, non tender, non distended. Normal bowel sounds Skin: No petechiae or rashes Back: No midline or flank tenderness Ext: No cyanosis, or edema Neur: Awake and alert Psych: Normal Mood and Affect TAYLOR LINDSAY MD Aug 22, 2018 11:18
[2018-08-22] MEDS ORDERED: ONDANSETRON (ODT) 4 MG TAB ODT STA (11:28)
[2018-08-22] MEDS ORDERED: HYDROCODONE/APAP (5/325) TAB PO ONE ×2 (11:30→21:00)
[2018-08-22] MEDS ORDERED: AMLO5TAB4 PO (12:17)
[2018-08-22] MEDS ORDERED: TRAM50TA PO (12:18)
[2018-08-22] MEDS ORDERED: CARV3.1260 PO (12:18)
[2018-08-22] MEDS ORDERED: BACL10TA PO (12:19)
[2018-08-22] MEDS ORDERED: CEFTRIAXONE 1 GM/50 ML (PMX) 50 ML IVPB ONE (15:30)
--- NOTE | 2018-08-22 16:47 | PDOCDIS ---
Discharge Instructions CONDITION [id number] Patient Condition: [id number] Good HOME CARE INSTRUCTIONS: [id number] Diet Instructions: [id number] FOLLOW UP/APPOINTMENTS Follow-up Plan pcp 1week Dr Bailey 1 week MARCO MYERS MD Aug 22, 2018 16:47
[2018-08-22] MEDS ORDERED: CEPH500C PO (16:48)
--- NOTE | 2018-08-22 18:27 | CONS ---
DATE OF ADMISSION: 08/22/2018 DATE OF CONSULTATION: CHIEF COMPLAINT: Abdominal distention. HISTORY OF PRESENT ILLNESS: A 77-year-old female status post cervical laminectomy several months magali or to admission who presented to emergency room with complaint of difficulty urinating due to retenti on. She initially reported lower abdominal discomfort. Initial evaluation revealed evidence of urin aristeo retention. Mckay catheter was placed. Urine appeared contaminated. The patient felt much dillon r after the Mckay catheter placement. PHYSICAL EXAMINATION: GENERAL: Well developed, well nourished in no apparent distress. VITAL SIGNS: Stable. She is afebrile. HEENT: Extraocular muscles intact. Pupils are equal and reactive to light bilaterally. Sclerae are anicteric. Oropharynx is clear and moist. NECK: Supple, no JVD, no carotid bruits. LUNGS: Clear to auscultation bilaterally. CARDIAC: Regular rate and rhythm. No murmurs, rubs or gallops. ABDOMEN: Soft, nontender, nondistended, normoactive bowel sounds. Mckay catheter is in place with y ellow urine. EXTREMITIES: No clubbing, cyanosis, or edema. NEUROLOGICAL: Nonfocal. ASSESSMENT: A 77-year-old female with: 1. Urinary retention. 2. Urinary tract infection. 3. Status post cervical diskectomy in the past. 4. Hypertension. PLAN: Discharge the patient to intermediate facility. Continue Keflex for 5 days. Keep Mckay ca theter in place. Instruct the patient and the caregiver on how to empty the Mckay catheter. Follow up with PCP and urology as outpatient. Dictated By: MARCO PINEDA/ALEC Conf#: [id number] DID#: [id number]
[2018-08-22 20:45] VITALS: BP 152/83; PULSE 87; RESP 18
== END 2018-08-22 20:45 | disposition home or self-care (01) ==
LOC: E/R 11:03
DX: M54.9 Dorsalgia, unspecified (principal); I10 Essential (primary) hypertension; R40.2142 Coma scale, eyes open, spontaneous, at arrival to emergency department; R40.2252 Coma scale, best verbal response, oriented, at arrival to emergency department; R40.2362 Coma scale, best motor response, obeys commands, at arrival to emergency department; Z85.41 Personal history of malignant neoplasm of cervix uteri
CPT/HCPCS: 36415; 51702; 80048; 81003; 85025; 87086; 96365; 99284; J0696